=== PATIENT | female | born 1940 | race Caucasian/White ===

== ENCOUNTER 2018-07-09 11:42 | Emergency (ER) | payer OTHER ==
[~2018-07-09] VITALS: Ht 149.9 cm; Wt 72.6 kg
[~2018-07-09 11:42] MED LIST: Z FENOFIBRATE; Z.0.LISINOPRIL5 MG; Z.0.NEURONTIN300 MG; Z.0.ZOCOR40 MG; Z.1.FISH OIL 1,2001; Z.2.METFORMIN HCL500
--- OUTSIDE RECORDS SUMMARY | 2018-07-09 11:44 | XMS REPORT | Continuity of Care Document ---
Author Author [facility] Interface Address Unknown Phone Unavailable Problems Problem Status Onset Date Classification Date Reported Comments Source UNK Active 01/30/2017 [facility] J44.1 - CHRONIC OBSTRUCTIVE PULMONARY Active 03/14/2016 [facility] TIA Active 05/19/2015 [facility] STROKE Active 05/19/2015 [facility] COPD Resolved Problem 06/30/2018 [facility] Diabetes Resolved Problem 06/30/2018 [facility] DM (<span ID="[id number]">Confirmed</span>) Resolved Problem 06/30/2018 [facility] HTN (<span ID="[id number]">Confirmed</span>) Resolved Problem 06/30/2018 [facility] [place] (<span ID="[id number]">Confirmed</span>) Resolved Problem 06/30/2018 [facility] GASTRO-ESOPHAGEAL REFLUX DISEASE WITHOUT Active [facility] DYSPHAGIA, UNSPECIFIED Active [facility] Medications Medication Details Route Status Patient Instructions Ordering Provider Order Date Source Fenofibrate 200 MG Oral Capsule 145 mg, 1 tab, Route: PO, Drug form: TAB, Daily, Dosing Weight 75.455, kg, Start date: 05/21/15 9:00:00, Duration: 30 day, Stop date: 06/19/15 9:00:00Notes: (Same as: Tricor) No Longer Active 05/21/2015 [facility] Fish Oil 1,200 mg, Route: PO, Drug form: CAP, Daily, Dosing Weight 75.455, kg, Start date: 05/21/15 9:00:00, Duration: 30 day, Stop date: 06/19/15 9:00:00 No Longer Active 05/21/2015 [facility] Loratadine 10 mg, 1 tab, Route: PO, Drug form: TAB, Daily, Dosing Weight 75.455, kg, Start date: 05/21/15 9:00:00, Duration: 30 day, Stop date: 06/19/15 9:00:00Notes: 1 hr before meals (Same as: Claritin) No Longer Active 05/21/2015 [facility] Lisinopril 5 mg, 1 tab, Route: PO, Drug form: TAB, Daily, Dosing Weight 75.455, kg, Start date: 05/21/15 9:00:00, Duration: 30 day, Stop date: 06/19/15 9:00:00Notes: (Same as: Prinivil, Zestril) No Longer Active 05/21/2015 [facility] Mucinex 600 mg, 1 tab, Route: PO, Drug form: ERTAB, Daily, Dosing Weight 75.455, kg, Start date: 05/21/15 9:00:00, Duration: 30 day, Stop date: 06/19/15 9:00:00Notes: (Same as: Guaifenesin LA, Humibid LA, Mucinex) "Do Not Crush" Take medication with plenty of water. No Longer Active 05/21/2015 [facility] Thyroxine 75 microgram, 1 tab, Route: PO, Drug form: TAB, Q6AM, Dosing Weight 75.455, kg, Start date: 05/21/15 6:00:00, Duration: 30 day, Stop date: 06/19/15 6:00:00Notes: Take 1 hour before or 2 hours after meal; Enteral feeds may interefere with the absorption of this medication. (Same as:Synthroid, Levothroid) No Longer Active 05/21/2015 [facility] Simvastatin 40 mg, 1 tab, Route: PO, Drug form: TAB, Bedtime, Dosing Weight 75.455, kg, Start date: 05/20/15 21:00:00, Duration: 30 day, Stop date: 06/18/15 21:00:00Notes: (Same as: Zocor) Inactive 05/21/2015 [facility] Advair Diskus 250 mcg-50 mcg inhalation powder 1 puff, Route: INHALATION, Drug Form: AERO, Dosing Weight 75.455, kg, BID, Start date: 05/20/15 17:00:00, Duration: 30 day, Stop date: 06/19/15 9:00:00 Inactive 05/20/2015 [facility] calcium-vitamin D 500 mg-200 intl units oral tablet 1 tab, Route: PO, Drug Form: TAB, Dosing Weight 75.455, kg, BID, Start date: 05/20/15 17:00:00, Duration: 30 day, Stop date: 06/19/15 9:00:00Notes: (Same As: Simona-D, OsCal-D, Oyster Calcium) Inactive 05/20/2015 [facility] Metformin hydrochloride 500 MG Oral Tablet 500 mg, 1 tab, Route: PO, Drug form: TAB, BID-Meals, Dosing Weight 75.455, kg, Start date: 05/20/15 17:00:00, Duration: 30 day, Stop date: 06/19/15 8:00:00Notes: (Same as: Glucophage) Take with meal Inactive 05/20/2015 [facility] gabapentin 300 MG Oral Capsule 300 mg, 1 cap, Route: PO, Drug form: CAP, BID, Dosing Weight 75.455, kg, Start date: 05/20/15 17:00:00, Duration: 30 day, Stop date: 06/19/15 9:00:00Notes: (Same as: Neurontin) Inactive 05/20/2015 [facility] Protonix 40 mg, 1 tab, Route: PO, Drug form: ECTAB, Before Dinner, Dosing Weight 75.455, kg, Start date: 05/20/15 16:30:00, Duration: 30 day, Stop date: 06/18/15 16:30:00Notes: Tablet should not be chewed or crushed. (Same as: Protonix) Inactive 05/20/2015 [facility] ciprofloxacin 500 mg oral tablet 500 mg=1 tab, PO, Q12H, X 7 day, # 14 tab, 0 Refill(s) Active 05/20/2015 [facility] Aspirin 325 MG Enteric Coated Tablet 325 mg=1 tab, PO, Daily, # 30 tab, 0 Refill(s) Active 05/20/2015 [facility] Enoxaparin 40 mg, 0.4 mL, Route: SUB-Q, Drug form: INJ, [id number], Dosing Weight 75.455, kg, Start date: 05/20/15 10:00:00, Duration: 30 day, Stop date: 06/18/15 10:00:00Notes: (Same as: Lovenox) Inactive 05/20/2015 [facility] budesonide-formoterol 160 mcg-4.5 mcg/inh inhalation aerosol with adapter 2 inhalation, Route: INHALATION, Drug Form: AERO/A, RBID, Start date: 05/20/15 9:56:00, Duration: 30 day, Stop date: 06/19/15 8:00:00Notes: (Same as: Symbicort) WASTE: Aerosol - Return to Pharmacy Inactive 05/20/2015 [facility] tramadol hydrochloride 50 MG Oral Tablet 50 mg, 1 tab, Route: PO, Drug form: TAB, Q6H, Dosing Weight 75.455, kg, PRN Pain Score 4-6, Start date: 05/20/15 9:35:00, Duration: 30 day, Stop date: 06/19/15 9:34:00Notes: Not to exceed 400mg/day. (Same As: Ultram) Inactive 05/20/2015 [facility] Albuterol 0.833 MG/ML / Ipratropium [place] 0.167 MG/ML Inhalant Solution [DuoNeb] 3 mL, Route: INHALATION, Drug Form: SOLN, Dosing Weight 75.455, kg, TID, PRN as needed for shortness of breath or wheezing, Start date: 05/20/15 9:34:00, Duration: 30 day, Stop date: 06/19/15 9:33:00Notes: (Same as: Duoneb) Inactive 05/20/2015 [facility] 200 ACTUAT Albuterol 0.09 MG/ACTUAT / Ipratropium [place] 0.018 MG/ACTUAT Metered Dose Inhaler [Combivent] 1 puff, Route: INHALATION, Drug Form: AERO, Dosing Weight 75.455, kg, QID, PRN Shortness of breath, Start date: 05/20/15 9:34:00, Duration: 30 day, Stop date: 06/19/15 9:33:00Notes: Same as: Combivent Respimat WASTE: Aerosol - Return to Pharmacy Inactive 05/20/2015 [facility] Insulin, Aspart, Human 4 unit, 0.04 mL, Route: SUB-Q, Drug form: SOLN, Bedtime, Dosing Weight 75.455, kg, PRN Blood Glucose Results, Start date: 05/20/15 9:33:00, Duration: 30 day, Stop date: 06/19/15 9:32:00Notes: Roll in palms of hands gently; Do not shake vigorously. (Same as: NovoLOG) "single patient use only" WASTE: F/P - Black; E - Municipal Trash Bin Stable for 28 days at room temperature. Expires in days from Date Inactive 05/20/2015 [facility] Glucagon 1 mg, Route: IM, Drug form: PDR/INJ, PRN, Dosing Weight 75.455, kg, PRN Blood Glucose Results, Start date: 05/20/15 9:33:00, Duration: 30 day, Stop date: 06/19/15 9:32:00 Inactive 05/20/2015 [facility] Dextrose 50% Syringe 25 gm, 50 mL, Route: IVP, Drug Form: INJ, Dosing Weight 75.455, kg, PRN, PRN Blood Glucose Results, Start date: 05/20/15 9:33:00, Duration: 30 day, Stop date: 06/19/15 9:32:00 Inactive 05/20/2015 [facility] Docusate 100 mg, 1 cap, Route: PO, Drug form: CAP, BID, Dosing Weight 75.455, kg, PRN Constipation, Start date: 05/20/15 9:30:00, Duration: 30 day, Stop date: 06/19/15 9:29:00Notes: (Same as: Colace) (Do Not Crush) Inactive 05/20/2015 [facility] Ondansetron 4 mg, 2 mL, Route: IVP, Drug form: INJ, Q6H, Dosing Weight 75.455, kg, PRN Nausea & Vomiting, Start date: 05/20/15 9:30:00, Duration: 30 day, Stop date: 06/19/15 9:29:00Notes: (Same as: Zofran) MEDICATION WASTE Product Size: 4 mg Product Wasted: ___ mg Inactive 05/20/2015 [facility] Ceftriaxone 2 gm, Route: IVPB, [id number], Dosing Weight 75.455, kg, Priority: NOW, Start date: 05/20/15 9:29:00, Duration: 30 day, Stop date: 06/18/15 10:00:00Notes: (Same As: Rocephin). Use with 100 mL NS and infuse over 30 min MEDICATION WASTE Product Size: 2000 mg Product Wasted: ___ mg Inactive 05/20/2015 [facility] Aspirin 325 MG Enteric Coated Tablet 325 mg, 1 tab, Route: PO, Drug form: ECTAB, Daily, Dosing Weight 68.182, kg, Start date: 05/20/15 9:00:00, Duration: 30 day, Stop date: 06/18/15 9:00:00Notes: (Do Not Crush) Do not crush or chew. Inactive 05/20/2015 [facility] Atropine 0.5 mg, 5 mL, Route: IV, Drug form: INJ, ONCE, Dosing Weight 75.455, kg, PRN Bradycardia, Start date: 05/20/15 5:07:00, symptomatic bradycardia with heart rate Inactive 05/20/2015 [facility] Nitroglycerin 0.4 MG Sublingual Tablet 0.4 mg, 1 tab, Route: SL, Drug form: TAB, Q5Min, Dosing Weight 75.455, kg, PRN Chest Pain, Start date: 05/20/15 5:07:00, Duration: 30 day, Stop date: 06/19/15 5:06:00Notes: (Same as:Nitroquick, Nitrostat) "Do Not Crush" Sublingual tablet Inactive 05/20/2015 [facility] Saline Flush 0.9% 10 ml, Route: IVP, Drug Form: INJ, Dosing Weight 68.182, kg, Q12H, Start date: 05/19/15 21:00:00, Duration: 30 day, Stop date: 06/18/15 9:00:00Notes: (Same as: BD Posiflush) No Longer Active 05/20/2015 [facility] Famotidine 20 mg, 1 tab, Route: PO, Drug form: TAB, Q12H, Dosing Weight 68.182, kg, Start date: 05/19/15 21:00:00, Duration: 30 day, Stop date: 06/18/15 9:00:00Notes: (Same as: Pepcid) No Longer Active 05/20/2015 [facility] atorvastatin 80 mg, 2 tab, Route: PO, Drug form: TAB, Bedtime, Dosing Weight 68.182, kg, Start date: 05/19/15 21:00:00, Duration: 30 day, Stop date: 06/17/15 21:00:00Notes: (Same as: Lipitor) No Longer Active 05/20/2015 [facility] Calcium Carbonate 1500 MG / Cholecalciferol 800 UNT Oral Tablet 1 tab, PO, BID, 0 Refill(s) Active 05/19/2015 [facility] 12 HR Guaifenesin 600 MG Extended Release Tablet [Mucinex] 600 mg=1 tab, PO, Daily, 0 Refill(s) Active 05/19/2015 [facility] Loratadine 10 MG Oral Tablet [Alavert] 10 mg=1 tab, PO, Daily, 0 Refill(s) Active 05/19/2015 [facility] Albuterol 0.833 MG/ML / Ipratropium [place] 0.167 MG/ML Inhalant Solution [DuoNeb] 3 mL, INHALATION, TID, PRN as needed for shortness of breath or wheezing, 0 Refill(s) Active 05/19/2015 [facility] Fenofibrate 200 MG Oral Capsule 200 mg=1 cap, PO, Daily, 0 Refill(s) Active 05/19/2015 [facility] Saline Flush 0.9% 10 ml, Route: IVP, Drug Form: INJ, Dosing Weight 68.182, kg, PRN, PRN Line Flush, Start date: 05/19/15 17:27:00, Duration: 30 day, Stop date: 06/18/15 17:26:00 Inactive 05/19/2015 [facility] Acetaminophen 650 mg, 2 tab, Route: PO, Drug form: TAB, Q4H, Dosing Weight 68.182, kg, PRN Pain 1-3/Temp > 99.5 F, Start date: 05/19/15 17:27:00, Duration: 30 day, Stop date: 06/18/15 17:26:00Notes: Do not exceed 4 gm/day. (Same as: Tylenol) No Longer Active 05/19/2015 [facility] Aspirin 324 mg, 4 tab, Route: CHEW, Drug form: CHEWTAB, ONCE, Dosing Weight 68.182, kg, Priority: STAT, Start date: 05/19/15 15:14:00, Stop date: 05/19/15 15:14:00Notes: Take with food. Inactive 05/19/2015 [facility] Saline Flush 0.9% 10 mL, Route: IVP, Drug Form: INJ, Dosing Weight 68.182, kg, PRN, PRN Line Flush, Start date: 05/19/15 14:35:00, Duration: 30 day, Stop date: 06/18/15 14:34:00Notes: (Same as: BD Posiflush) No Longer Active 05/19/2015 [facility] Allergies, Adverse Reactions, Alerts Substance Category Reaction Severity Reaction type Status Date Reported Comments Source Immunizations Immunization Date Given Site Status Last Updated Comments Source Results Order Name Results Value Reference Range Date Interpretation Comments Source Bladder US Bladder US EXAM: US BLADDER DATE: 07/08/2018 8:50 CDT INDICATION: - N32.89 Other specified disorders of bladder. Distended bladder. Incomplete emptying of the bladder and bladder pain for a few days. COMPARISON: CT dated 06/27/2018 TECHNIQUE: Multiplanar grayscale and color Doppler ultrasound of the bladder. FINDINGS: The bladder is distended with mildly thickened wall. There is a small right posterolateral bladder diverticulum measuring approximately 2 cm in diameter. Bilateral ureteral jets are seen. Prevoid bladder volume is 874 mL. Postvoid residual volume is 509 mL. IMPRESSION: 1. Small right posterolateral bladder diverticulum. 2. Large post void residual. 07/08/2018 - - Read by: Carola Souza MD Dictated Date/time: 07/08/18 12:58 Electronically Signed by: Carola Souza MD 07/08/18 13:04 FINAL REPORT [facility] Abdomen/Pelvis w IV contrast CT Abdomen/Pelvis w IV contrast CT EXAM: CT ABDOMEN AND PELVIS WITH CONTRAST DATE: 06/27/2018 15:04 CDT INDICATION: - R10.9 Unspecified abdominal pain. Right groin pain and left- sided abdominal pain for the past 2 months. I insufficiency and anemia. ADDITIONAL INFORMATION: History of cholecystectomy. COMPARISON: None. TECHNIQUE: Volumetric CT acquisition of the abdomen and pelvis after intravenous contrast. Axial, coronal and sagittal reconstructions. Postcontrast phases: Venous and delayed. IV contrast: 100 cc Visipaque 320 Oral contrast: Oral Omnipaque 300 and water mixture. DLP: 1545 mGy-cm FINDINGS: Lines and tubes: None. Lower thorax: Lung bases are clear. Atherosclerotic calcifications are seen in the coronary arterial system. No pleural or pericardial effusions are seen. Liver: The liver is of normal size and density. There is very mild nodularity of the liver surfaces. No focal liver abnormalities are seen. Biliary tree: The common bile duct is dilated up to 15 mm with no distinct constricting or obstructing lesions. No pancreatic ductal dilatation is seen. There is a mild degree of central intrahepatic biliary ductal dilatation. Gallbladder: Surgically absent Pancreas: Normal. Spleen: Normal. Adrenals: Normal. Kidneys and ureters: Simple fluid attenuation cysts are seen within the right kidney with the largest measuring 2.5 cm in maximal diameter. Other hypodensities which are subcentimeter in size and which are too small to characterize are seen within the right renal cortex. There areas of renal cortical thinning present with mild lobulation of the right renal cortex. Within the left kidney, multiple subcentimeter hypodensities are present which are too small to characterize. There is a mild degree of lateral cortical thinning present. There is some mild lobulation of this kidneys cortex as well. The kidneys otherwise enhance symmetrically and normally with prompt excretion of contrast material. No hydronephrosis, masses, or calculi are seen. The ureters are of normal course and caliber with no constricting or obstructing lesions. Bladder: The bladder is significantly distended on this exam. A 1.4 cm right posterior lateral bladder wall diverticulum is seen on image 115 of series 5 with no associated wall thickening or calculi. No constricting or obstructing bladder outlet lesions are noted. No wall thickening, masses, or calculi are seen. Reproductive organs: No abnormalities of the uterus, ovaries, cervix, and vagina are seen. Gastrointestinal tract: There is mild concentric thickening of the distal esophageal liu with no surrounding inflammatory changes. The stomach is normal in appearance. Colonic diverticulosis, especially of the sigmoid colon, is present with no CT evidence of acute diverticulitis. The small intestine and colon are of normal course and caliber with no constricting or obstructing lesions, masses, or surrounding inflammatory changes. No rectal or anal abnormalities are seen. Appendix: Not visualized. No pericecal inflammatory changes or fluid collections are seen. Peritoneum and retroperitoneum: No lymphadenopathy, ascites or free air. Lymph nodes: No abdominal or pelvic lymphadenopathy is seen. Vasculature: There is mild ectasia and aneurysmal dilatation of the infrarenal abdominal aorta measuring up to 2.8 x 3.2 cm on image 53 of series 2. Mixed calcified and noncalcified plaque formation are seen within the abdominal aorta and iliac arterial systems. No dissections are seen. Moderate atherosclerotic calcifications are seen at the left renal arterial origin. Mild atherosclerotic calcifications are seen in the right renal origin. Mild atherosclerotic calcifications are seen at the origins of the celiac axis and superior mesenteric artery as well The inferior vena cave is normal in appearance. The portal venous system is patent with dilatation of the main portal vein at the 17 mm. Multiple varices are seen in the gastrohepatic ligament and adjacent to the gastroesophageal junction within the peritoneal cavity. No varices are seen superior to the diaphragm. Bones: Multilevel spondylosis and severe disc space narrowing are seen in the lumbar spine especially at L1-L2 through L3-L4. Advanced facet joint osteoarthritic changes are present at L5-S1 with milder changes at other levels in the lumbar spine. No osseous destructive lesions are seen.. Soft tissues/abdominal wall: Small bilateral fat-containing indirect inguinal hernias are present with no surrounding or internal inflammatory changes. IMPRESSION: 1. Very mild surface nodularity of the liver along with varices within the gastroesophageal ligament/gastroesophageal junction and along with dilatation of the main portal vein most likely represent underlying cirrhosis with portal hypertension. No splenomegaly or ascites is seen. If bleeding varices are suspected clinically, endoscopy would be recommended for further evaluation. 2. The bladder is moderately distended on this exam. No discrete bladder outlet abnormalities are seen by CT. Clinical correlation is recommended to ensure the patient can adequately void. Otherwise, catheterization may be necessary. 3. Small posterior right bladder diverticulum. 4. Diffuse ectasia of the abdominal aorta with mild aneurysmal dilatation up to 3.2 cm of the infrarenal abdominal aorta. Moderate atherosclerosis is seen throughout the abdomen, as described above, including of the coronary arteries. 5. Small bilateral fat-containing inguinal hernias with no surrounding or internal inflammatory changes. 6. Mild diffuse thickening of the distal esophageal liu, possibly from esophagitis. Other infiltrating pathology is less likely. No discrete mass is seen. Upper GI series or endoscopy may be performed for further evaluation. 7. Status post cholecystectomy. Dilatation of the central intrahepatic ducts and of the common bile duct is likely from normal reservoir effect status post cholecystectomy. If there is laboratory evidence of biliary ductal obstruction, MRCP and MRI of the abdomen with and without contrast would be recommended. 8. Multiple bilateral renal cysts. Mild areas of bilateral renal cortical thinning/scarring are seen. There is lobulation of both renal cortices. Other small hypodensities in both kidneys are too small to characterize and likely represent small cysts. 9. Colonic diverticulosis with no CT evidence of acute diverticulitis. 06/27/2018 - - Read by: Tushar Cruz MD Dictated Date/time: 06/27/18 16:13 Electronically Signed by: Tushar Cruz MD 06/27/18 16:41 FINAL REPORT [facility] Hip 2/3 views uni w pelvis DX Hip 2/3 views uni w pelvis DX EXAM: XR LEFT HIP 3 VIEWS DATE: 04/18/2017 at 1531 hours. INDICATION: W19.XXXA Unspecified fall, initial encounter. COMPARISON: None. TECHNIQUE: 3 views of the hip including the pelvis. FINDINGS: There is decreased mineralization of the visible bones. No acute fracture or malalignment is identified. Mild degenerative changes of the lower lumbar spine are partially imaged. Hip joint spaces are preserved. No acute soft tissue abnormality is identified. There are mild vascular calcifications about the medial, proximal thighs. IMPRESSION: 1. No acute abnormality of the left hip. 2. Osteopenia. 04/18/2017 - - Read by: Dylon Rosado MD Dictated Date/time: 04/18/17 16:14 Electronically Signed by: Dylon Rosado MD 04/18/17 16:17 FINAL REPORT [facility] Barium Swallow w Esophagus Function DX Barium Swallow w Esophagus Function DX Barium Swallow w Esophagus Function DX COMPARISON: None CLINICAL HISTORY: fl time 3.2 min, dose 113.24 mGy, dap 31.148 Gycm2 , Dr. 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 TECHNIQUE: Thin barium was utilized for recumbent prone oblique and LPO images. Thick barium was utilized for upright imaging of the esophagus and pharynx. Granola bar mixed with barium was given to evaluate motility with solids. FINDINGS: There is no delay in passage of the barium bolus from the pharynx into the esophagus. There is mild narrowing at the cricopharyngeus. No significant delay in passage of the bolus from the oropharynx past the cricopharyngeus and into the esophagus is however noted. There is no evidence for Zenker's diverticulum. Prone and LPO images of the esophagus reveal moderate delay in passage of barium from the esophagus to the stomach. The esophagus at times has a corkscrew appearance. Patient reports chest discomfort but no definite evidence for chest pain. Upright images with thick barium mild to moderate delay in passage of barium from the esophagus to the stomach. No mass lesions or strictures are visualized. Subsequently 2 separate swallows of a small piece of granola bar and barium were fluoroscopically followed through the length of the esophagus. There is delay in passage of both solid boluses from the esophagus to the stomach. Overhead image performed at the conclusion of the procedure reveals prompt passage of the barium from the stomach into the small bowel. IMPRESSION: Findings suggestive of diffuse esophageal spasm. Correlation with manometry study is recommended. Mild narrowing is noted at the cricopharyngeus without significant delay in passage of liquid barium or solids. 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 This may be secondary to overlying chest wall soft tissue opacities. Changes in the left lung base are unchanged as compared to 05/19/2015. Heart is upper limits of normal. Tortuous thoracic aorta. Soft tissue opacity in the retrocardiac region on lateral view may represent a small hiatal hernia. Mildly exaggerated dorsal spine kyphosis is present. IMPRESSION: Hazy opacities in the lung bases on PA view, no definite abnormalities on lateral view. 03/14/2016 - - Read by: Marcela Kemp MD Dictated Date/time: 03/14/16 16:31 Electronically Signed by: Marcela Kemp 03/14/16 16:36 FINAL REPORT [facility] CHEM PANEL A/G Ratio 1.1 0.7 - 1.6 05/20/2015 [facility] CHEM PANEL Globulin 2.9 g/dL 2.0 - 4.0 05/20/2015 [facility] CHEM PANEL B/C Ratio 21 6 - 25 05/20/2015 [facility] CHEM PANEL AGAP 10.1 meq/L 10.0 - 20.0 05/20/2015 [facility] CHEM PANEL eGFR 50 mL/min/1.73m2 05/20/2015 Result Comment: The eGFR is calculated using the CKD-EPI formula. In most young, healthy individuals the eGFR will be >90 mL/min/1.73m2. The eGFR declines with age. An eGFR of 60-89 may be normal in some populations, particularly the elderly, for whom the CKD-EPI formula has not been extensively validated. Use of the eGFR is not recommended in the following populations: Individuals with unstable creatinine concentrations, including patients and those with serious co-morbid conditions. Patients with extremes in muscle mass or diet. The data above are obtained from the National Kidney Disease Education Program (NKDEP) which additionally recommends that when the eGFR is used in patients with extremes of body mass index for purposes of drug dosing, the eGFR should be multiplied by the estimated BMI. [facility] CHEM PANEL Potassium Lvl 4.1 meq/L 3.5 - 5.1 05/20/2015 [facility] [facility] CHEM PANEL Chloride Lvl 107 meq/L 95 - 109 05/20/2015 [facility] CHEM PANEL Calcium Lvl 9.1 mg/dL 8.5 - 10.5 05/20/2015 [facility] CHEM PANEL CO2 29 meq/L 24 - 32 05/20/2015 [facility] CHEM PANEL Sodium Lvl 142 meq/L 135 - 145 05/20/2015 [facility] CHEM PANEL BUN 22 mg/dL 7 - 22 05/20/2015 [facility] CHEM PANEL Glucose Lvl 115 mg/dL 70 - 99 05/20/2015 [facility] CHEM PANEL Creatinine Lvl 1.07 mg/dL 0.50 - 1.40 05/20/2015 [facility] CHEM PANEL Bili Total 0.4 mg/dL 0.2 - 1.3 05/20/2015 [facility] CHEM PANEL ALT 21 unit/L 0 - 65 05/20/2015 [facility] CHEM PANEL Alk Phos 50 unit/L 39 - 136 05/20/2015 [facility] CHEM PANEL AST 19 unit/L 0 - 37 05/20/2015 [facility] CHEM PANEL Total Protein 6.0 g/dL 6.4 - 8.4 05/20/2015 [facility] CHEM PANEL Albumin Lvl 3.1 g/dL 3.5 - 5.0 05/20/2015 [facility] HEMATOLOGY Basophils # 0.1 K/CMM 0.0 - 0.2 05/20/2015 [facility] HEMATOLOGY Eosinophils # 0.1 K/CMM 0.0 - 0.5 05/20/2015 [facility] HEMATOLOGY Monocytes # 0.4 K/CMM 0.0 - 0.8 05/20/2015 [facility] HEMATOLOGY Lymphocytes # 1.1 K/CMM 1.0 - 5.5 05/20/2015 [facility] HEMATOLOGY Eosinophils 2.4 % 0.0 - 4.0 05/20/2015 [facility] HEMATOLOGY Basophils 1.1 % 0.0 - 1.0 05/20/2015 [facility] HEMATOLOGY Segs-Bands # 3.7 K/CMM 1.5 - 8.1 05/20/2015 [facility] Lymphocytes 19.8 % 20.0 - 40.0 05/20/2015 [facility] Monocytes 7.5 % 2.0 - 12.0 05/20/2015 [facility] Segs 69.2 % 45.0 - 75.0 05/20/2015 [facility] MPV 9.6 fL 7.4 - 10.4 05/20/2015 [facility] Platelet 205 K/CMM 133 - 450 05/20/2015 [facility] MCH 27.9 pg 27.0 - 31.0 05/20/2015 [facility] MCHC 31.9 g/dL 32.0 - 36.0 05/20/2015 [facility] RDW 15.1 % 11.5 - 14.5 05/20/2015 [facility] RBC 4.37 M/CMM 4.20 - 5.40 05/20/2015 [facility] HEMATOLOGY Hgb 12.2 g/dL 12.0 - 16.0 05/20/2015 [facility] WBC 5.4 K/CMM 3.7 - 10.4 05/20/2015 [facility] HEMATOLOGY Hct 38.1 % 36.0 - 48.0 05/20/2015 [facility] HEMATOLOGY MCV 87.3 fL 80.0 - 98.0 05/20/2015 [facility] LIPIDS LDL (Calculated) 69 mg/dL <=99 mg/dL 05/20/2015 [facility] LIPIDS CHD Risk 4.48 3.90 - 5.80 05/20/2015 [facility] LIPIDS Trig 162 mg/dL <=149 mg/dL 05/20/2015 [facility] LIPIDS Chol 130 mg/dL <=199 mg/dL 05/20/2015 [facility] LIPIDS HDL 29 mg/dL >=61 mg/dL 05/20/2015 [facility] LIPIDS VLDL 32 05/20/2015 [facility] Brain wo contrast MRI Brain wo contrast MRI PROCEDURE: Brain wo contrast MRI REASON FOR EXAM: acute headache and dizziness, facial numbness CLINICAL INFORMATION Facial numbness COMPARISON: None. FINDINGS: There is no acute or subacute infarction. There is diffuse volume loss with corresponding prominence of the ventricles and sulci. There are microangiopathic changes of the white matter. The temporal lobes are symmetric in size and signal characteristics. The sella and foramen magnum regions are normal. No hemorrhage, mass or midline shift is noted. IMPRESSION: 1. Chronic changes as described above, no acute intracranial process. SL: 13 05/19/2015 - - Read by: Harry Gottlieb MD Dictated Date/time: 05/20/15 07:23 Electronically Signed by: Harry Gottlieb MD 05/20/15 07:27 FINAL REPORT [facility] URINE AND STOOL UA Urobilinogen <=1.0 mg/dL 0.1 - 1.0 05/19/2015 [facility] URINE AND STOOL UA Sq Epi Few /LPF Few /LPF 05/19/2015 [facility] URINE AND STOOL UA Bacteria Moderate /HPF None Seen /HPF 05/19/2015 [facility] URINE AND STOOL UA RBC 2 /HPF 0 - 2 05/19/2015 [facility] URINE AND STOOL UA WBC 97 /HPF 0 - 5 05/19/2015 [facility] URINE AND STOOL UA Nitrite Positive *ABN* (05/19/15 5:34 PM) Negative 05/19/2015 [facility] URINE AND STOOL UA Leuk Est Large *ABN* (05/19/15 5:34 PM) Negative 05/19/2015 [facility] URINE AND STOOL UA Turbidity Marked *ABN* (05/19/15 5:34 PM) Clear 05/19/2015 [facility] URINE AND STOOL UA Spec Grav 1.014 <=1.030 05/19/2015 [facility] URINE AND STOOL UA Color Yellow *NA* (05/19/15 5:34 PM) Yellow 05/19/2015 [facility] URINE AND STOOL UA Blood Small *ABN* (05/19/15 5:34 PM) Negative 05/19/2015 [facility] URINE AND STOOL UA Bili Negative *NA* (05/19/15 5:34 PM) Negative 05/19/2015 [facility] URINE AND STOOL UA Glucose Negative mg/dL Negative mg/dL 05/19/2015 [facility] URINE AND STOOL UA Ketones Negative mg/dL Negative mg/dL 05/19/2015 [facility] URINE AND STOOL UA pH 5.0 5.0 - 8.0 05/19/2015 [facility] URINE AND STOOL UA Protein Negative mg/dL Negative mg/dL 05/19/2015 [facility] CARDIAC ENZYMES Total CK 62 unit/L 12 - 191 05/19/2015 [facility] CARDIAC ENZYMES CK MB 1.3 ng/mL 0.5 - 3.6 05/19/2015 [facility] CARDIAC ENZYMES Troponin-I null 0.00 - 0.40 05/19/2015 [facility] CARDIAC ENZYMES CK MB Index 2.1 0.0 - 2.5 05/19/2015 [facility] CHEM PANEL Phosphorus 2.6 mg/dL 2.5 - 4.5 05/19/2015 [facility] CHEM PANEL Magnesium Lvl 1.8 mg/dL 1.8 - 2.4 05/19/2015 [facility] CHEM PANEL eGFR 38 mL/min/1.73m2 05/19/2015 Result Comment: The eGFR is calculated using the CKD-EPI formula. In most young, healthy individuals the eGFR will be >90 mL/min/1.73m2. The eGFR declines with age. An eGFR of 60-89 may be normal in some populations, particularly the elderly, for whom the CKD-EPI formula has not been extensively validated. Use of the eGFR is not recommended in the following populations: Individuals with unstable creatinine concentrations, including patients and those with serious co-morbid conditions. Patients with extremes in muscle mass or diet. The data above are obtained from the National Kidney Disease Education Program (NKDEP) which additionally recommends that when the eGFR is used in patients with extremes of body mass index for purposes of drug dosing, the eGFR should be multiplied by the estimated BMI. [facility] CHEM PANEL Sodium Lvl 141 meq/L 135 - 145 05/19/2015 [facility] CHEM PANEL Chloride Lvl 108 meq/L 95 - 109 05/19/2015 [facility] CHEM PANEL Potassium Lvl 4.7 meq/L 3.5 - 5.1 05/19/2015 [facility] CHEM PANEL Calcium Lvl 9.5 mg/dL 8.5 - 10.5 05/19/2015 [facility] CHEM PANEL ALT 21 unit/L 0 - 65 05/19/2015 [facility] CHEM PANEL Total Protein 6.6 g/dL 6.4 - 8.4 05/19/2015 [facility] CHEM PANEL Albumin Lvl 3.2 g/dL 3.5 - 5.0 05/19/2015 [facility] CHEM PANEL CO2 25 meq/L 24 - 32 05/19/2015 [facility] CHEM PANEL AST 30 unit/L 0 - 37 05/19/2015 [facility] CHEM PANEL Bili Total 0.6 mg/dL 0.2 - 1.3 05/19/2015 [facility] CHEM PANEL Alk Phos 54 unit/L 39 - 136 05/19/2015 [facility] CHEM PANEL AGAP 12.7 meq/L 10.0 - 20.0 05/19/2015 [facility] CHEM PANEL Globulin 3.4 g/dL 2.0 - 4.0 05/19/2015 [facility] CHEM PANEL A/G Ratio 0.9 0.7 - 1.6 05/19/2015 [facility] CHEM PANEL B/C Ratio 15 6 - 25 05/19/2015 [facility] CHEM PANEL BUN 20 mg/dL 7 - 22 05/19/2015 [facility] CHEM PANEL Creatinine Lvl 1.35 mg/dL 0.50 - 1.40 05/19/2015 [facility] CHEM PANEL Glucose Lvl 128 mg/dL 70 - 99 05/19/2015 [facility] HEMATOLOGY Hgb 12.6 g/dL 12.0 - 16.0 05/19/2015 [facility] HEMATOLOGY Hct 39.7 % 36.0 - 48.0 05/19/2015 [facility] HEMATOLOGY WBC 5.9 K/CMM 3.7 - 10.4 05/19/2015 [facility] HEMATOLOGY RBC 4.54 M/CMM 4.20 - 5.40 05/19/2015 [facility] HEMATOLOGY Platelet 211 K/CMM 133 - 450 05/19/2015 [facility] HEMATOLOGY MCV 87.3 fL 80.0 - 98.0 05/19/2015 [facility] HEMATOLOGY MCH 27.7 pg 27.0 - 31.0 05/19/2015 [facility] MCHC 31.7 g/dL 32.0 - 36.0 05/19/2015 [facility] RDW 15.7 % 11.5 - 14.5 05/19/2015 [facility] MPV 10.0 fL 7.4 - 10.4 05/19/2015 [facility] Monocytes 7.0 % 2.0 - 12.0 05/19/2015 [facility] Lymphocytes 14.9 % 20.0 - 40.0 05/19/2015 [facility] Segs 76.5 % 45.0 - 75.0 05/19/2015 [facility] Monocytes # 0.4 K/CMM 0.0 - 0.8 05/19/2015 [facility] Lymphocytes # 0.9 K/CMM 1.0 - 5.5 05/19/2015 [facility] Eosinophils 0.8 % 0.0 - 4.0 05/19/2015 [facility] Segs-Bands # 4.5 K/CMM 1.5 - 8.1 05/19/2015 [facility] Basophils 0.8 % 0.0 - 1.0 05/19/2015 [facility] Carotid artery Doppler bilat US Carotid artery Doppler bilat US PROCEDURE: Carotid artery Doppler US REASON FOR EXAM: Dizziness, lightheadedness COMPARISON: None. TECHNIQUE: Dalton-scale, color Doppler and spectral Doppler of the carotid arteries was performed. Any reported ICA stenoses indirectly reference the distal internal carotid diameter as the denominator for the stenosis measurement, utilizing consensus panel criteria. FINDINGS: RIGHT: No significant plaque formation. ICA PSV 69 cm/sec CCA PSV 63 cm/sec ICA/CCA ratio 1.09 Vertebral flow is antegrade. External carotid artery is patent. LEFT: No significant plaque formation. ICA PSV 136 cm/sec CCA PSV 74 cm/sec ICA/CCA ratio 1.84 Vertebral flow is antegrade. External carotid artery is patent. IMPRESSION: 1. RIGHT: ICA stenosis less than 50% by velocity criteria. 1. LEFT: ICA stenosis 50-69% by velocity criteria. Consensus panel Doppler US criteria for diagnosis of ICA stenosis: Stenosis (%) ICA PSV (cm/sec) ICA/CCA ratio <50 <125 <2.0 50-69 125-230 2.0-4.0 >70 but less than >230 >4.0 near occlusion Near occlusion High, low, or Variable undetectable SL: 05/19/2015 - - Read by: Harry Gottlieb MD Dictated Date/time: 05/20/15 07:27 Electronically Signed by: Harry Gottlieb MD 05/20/15 07:30 FINAL REPORT [facility] Chest 1view DX Chest 1view DX PROCEDURE: Chest 1view REASON FOR EXAM: See Clinic Indication CLINICAL INFORMATION Chest pain COMPARISON: None. Left lower lobe atelectasis and small effusion. Enlarged cardiac silhouette. Small hiatal hernia suspected. No pneumothorax. Normal pulmonary vasculature. SL: 05/19/2015 - - Read by: Harry Gottlieb MD Dictated Date/time: 05/19/15 15:33 Electronically Signed by: Harry Gottlieb MD 05/19/15 15:34 FINAL REPORT [facility] Brain Stroke wo contrast CT Brain Stroke wo contrast CT CT BRAIN WITHOUT CONTRAST: HISTORY: Confusion. TECHNIQUE: Axial images were done without contrast. FINDINGS: Multiple small patchy low-density areas and lacunae are seen in the basal ganglia white matter of both cerebral hemispheres. There is no other acute parenchymal abnormality, hemorrhage,infarct, mass, or shift. The ventricles and extra-axial spaces are within normal limits. There is no significant osseous abnormality. IMPRESSION: Small vessel ischemic changes without other acute CT abnormalities of the brain. SL:05/19/2015 - - Read by: Tony Ballard MD Dictated Date/time: 05/19/15 14:41 Electronically Signed by: Tony Ballard MD 05/19/15 14:43 FINAL REPORT [facility] Vital Signs Vital Sign Value Date Comments Source Respitory Rate 18 05/20/2015 [facility] Systolic (mm Hg) 115 05/20/2015 [facility] Diastolic (mm Hg) 66 05/20/2015 [facility] Heart Rate 66 05/20/2015 [facility] Respitory Rate 18 05/20/2015 [facility] Temperature Oral (F) 97.4 F 05/20/2015 [facility] Respitory Rate 16 05/20/2015 [facility] Temperature Oral (F) 98.3 F 05/20/2015 [facility] Systolic (mm Hg) 145 05/20/2015 [facility] Diastolic (mm Hg) 84 05/20/2015 [facility] Heart Rate 70 05/20/2015 [facility] Heart Rate 78 05/20/2015 [facility] Systolic (mm Hg) 117 05/20/2015 [facility] Diastolic (mm Hg) 78 05/20/2015 [facility] Temperature Oral (F) 97.6 F 05/20/2015 [facility] Height 149.86 cm 05/20/2015 [facility] BMI Calculated 33.6 05/20/2015 [facility] Weight 75.455 05/20/2015 [facility] Encounters Location Location Details Encounter Type Encounter Number Reason For Visit Attending Provider ADM Date DC Date Status Source [facility] OBS Observation Patient [id number] Stanjames Tatum 05/19/2015 05/20/2015 [facility] [place] [facility] [id number] Horace Odell 03/14/2016 03/15/2016 [facility] Outpatient [id number] Prasad Rodriguez 02/01/2017 02/02/2017 [facility] [place] [facility] [id number] Horace Odell 04/18/2017 04/19/2017 [facility] [place] [facility] [id number] Horace Odell 06/27/2018 06/28/2018 [facility] Procedures Procedure Code Date Perfomer Comments Source Cataract surgery [id number] [facility] Cholecystectomy [id number] [facility] Eye operation [id number] [facility] Tubal ligation [id number] [facility] Cataract surgery [id number] [facility] Cholecystectomy [id number] [facility] Eye operation [id number] [facility] Tubal ligation [id number] [facility]
--- OUTSIDE RECORDS SUMMARY | 2018-07-09 11:44 | XMS REPORT | Summary of Care ---
Author Author [facility] Organization [facility] Address Unknown Phone Unavailable Encounter HQ Miracle(FIN) [id number] Date(s): 02/01/17 - 02/01/17 [facility] [address] [place] [address]- Discharge Disposition: Home or Self Care Attending Physician: Prasad Rodriguez MD Referring Physician: Prasad Rodriguez MD Vital Signs No data available for this section Problem List Condition Effective Dates Status Health Status Informant COPD(Confirmed) Resolved Diabetes(Confirmed) Resolved DM (diabetes Resolved mellitus)(Confirmed) HTN Resolved (hypertension)(Confi rmed) MD (myocardial Resolved infarction)(Confirme d) Allergies, Adverse Reactions, Alerts Substance Reaction Severity Status NKDA Active Medications No data available for this section Results No data available for this section Immunizations No data available for this section Procedures Procedure Date Related Diagnosis Body Site Cataract surgery Cholecystectomy Eye operation Tubal ligation Social History Social History Type Response Smoking Status Former smoker; Started at age: 16.0; Stopped at age: 67; Exposure to Tobacco Smoke None; Cigarette Smoking Last 365 Days No; Reg Smoking Cessation Counseling Yes Assessment and Plan No data available for this section
--- OUTSIDE RECORDS SUMMARY | 2018-07-09 11:44 | XMS REPORT | Summary of Care ---
Author Author [facility] Outpatient Imaging [facility] Outpatient Imaging [facility] Address Unknown Phone Unavailable Encounter JOHN Rausch(TIFFANIE) [id number] Date(s): 04/18/17 - 04/18/17 [facility] Outpatient Imaging [facility] [address] [facility], [address] [place] [phone] Discharge Disposition: Home or Self Care Attending Physician: Horace Odell MD Vital Signs No data available for this section Problem List Condition Effective Dates Status Health Status Informant COPD(Confirmed) Resolved Diabetes(Confirmed) Resolved DM (diabetes Resolved mellitus)(Confirmed) HTN Resolved (hypertension)(Confi rmed) WI (myocardial Resolved infarction)(Confirme d) Allergies, Adverse Reactions, Alerts Substance Reaction Severity Status NKDA Active Medications No data available for this section Results No data available for this section Immunizations No data available for this section Procedures Procedure Date Related Diagnosis Body Site Cataract surgery Cholecystectomy Eye operation Tubal ligation Social History Social History Type Response Smoking Status Former smoker; Exposure to Tobacco Smoke None; Cigarette Smoking Last 365 Days No; Reg Smoking Cessation Counseling Yes; Started at age: 16.0; Stopped at age: 67; Assessment and Plan No data available for this section
--- OUTSIDE RECORDS SUMMARY | 2018-07-09 11:45 | XMS REPORT | Summary of Care ---
Author Author [facility] Outpatient Imaging [facility] Outpatient Imaging [facility] Address Unknown Phone Unavailable Encounter HQ Carol_miles(FIN) [id number] Date(s): 03/14/16 - 03/14/16 [facility] Outpatient Imaging [facility] [address] [facility], [address] [place] [phone] Discharge Disposition: Home or Self Care Attending Physician: Horace Odell MD Vital Signs No data available for this section Problem List Condition Effective Dates Status Health Status Informant COPD(Confirmed) Resolved Diabetes(Confirmed) Resolved DM (diabetes Resolved mellitus)(Confirmed) HTN Resolved (hypertension)(Confi rmed) PR (myocardial Resolved infarction)(Confirme d) Allergies, Adverse Reactions, [...]
--- OUTSIDE RECORDS SUMMARY | 2018-07-09 11:45 | XMS REPORT | Summary of Care ---
Author Author [facility] Organization [facility] Address Unknown Phone Unavailable Encounter JOHN Rausch(TIFFANIE) [id number] Date(s): 05/19/15 - 05/20/15 [facility] [address] [place] [address]- [phone] Discharge Disposition: Home Attending Physician: Stan Tatum MD Admitting Physician: Stan Tatum MD Vital Signs 1 2 3 Most recent to oldest [Reference Range]: 149.86 cm (05/19/15 6:18 PM) Height 97.4 DegF (05/20/15 7:09 AM) 98.3 DegF (05/20/15 4:18 AM) 97.6 DegF (05/19/15 11:08 PM) Temperature Oral [96.4-99.1 DegF] 115/66 mmHg (05/20/15 7:09 AM) 145/84 mmHg *HI* (05/20/15 4:18 AM) 117/78 mmHg (05/19/15 11:08 PM) Blood Pressure [90-140/60-90 mmHg] 18 BRMIN (05/20/15 10:50 AM) 18 BRMIN (05/20/15 7:09 AM) 16 BRMIN (05/20/15 6:22 AM) Respiratory Rate [14-20 BRMIN] 66 bpm (05/20/15 7:09 AM) 70 bpm (05/20/15 4:18 AM) 78 bpm (05/19/15 11:08 PM) Peripheral Pulse Rate [60-100 bpm] 75.455 kg (05/19/15 6:18 PM) Weight 33.6 m2 (05/19/15 6:18 PM) Body Mass Index Problem List Condition Effective Dates Status Health Status Informant COPD(Confirmed) Resolved Diabetes(Confirmed) Resolved DM (diabetes Resolved mellitus)(Confirmed) HTN Resolved (hypertension)(Confi rmed) NV (myocardial Resolved infarction)(Confirme d) Allergies, Adverse Reactions, Alerts Substance Reaction Severity Status NKDA Active Medications acetaminophen 650 mg, 2 tab, Route: PO, Drug form: TAB, Q4H, Dosing Weight 68.182, kg, PRN Jaguar n 1-3/Temp > 99.5 F, Start date: 05/19/15 17:27:00, Duration: 30 day, Stop date: 06/18/15 17:26:00 Notes: Do not exceed 4 gm/day. (Same as: Tylenol) Start Date: 05/19/15 Stop Date: 05/20/15 Status: Discontinued Advair Diskus 250 mcg-50 mcg inhalation powder 1 puff, Route: INHALATION, Drug Form: AERO, Dosing Weight 75.455, kg, BID, Start date: 05/20/15 17:00:00, Duration: 30 day, Stop date: 06/19/15 9:00:00 Start Date: 05/20/15 Stop Date: 05/20/15 Status: Deleted Alavert 10 mg oral tablet 10 mg=1 tab, PO, Daily, 0 Refill(s) Start Date: 05/19/15 Status: Ordered aspirin 324 mg, 4 tab, Route: CHEW, Drug form: CHEWTAB, ONCE, Dosing Weight 68.182, kg, Priority: STAT, Start date: 05/19/15 15:14:00, Stop date: 05/19/15 15:14:00 Notes: Take with food. Start Date: 05/19/15 Stop Date: 05/19/15 Status: Completed aspirin 325 mg tablet, enteric coated 325 mg, 1 tab, Route: PO, Drug form: ECTAB, Daily, Dosing Weight 68.182, kg, Sta rt date: 05/20/15 9:00:00, Duration: 30 day, Stop date: 06/18/15 9:00:00 Notes: (Do Not Crush) Do not crush or chew. Start Date: 05/20/15 Stop Date: 05/20/15 Status: Discontinued aspirin 325 mg tablet, enteric coated 325 mg=1 tab, PO, Daily, # 30 tab, 0 Refill(s) Start Date: 05/20/15 Status: Ordered atorvastatin 80 mg, 2 tab, Route: PO, Drug form: TAB, Bedtime, Dosing Weight 68.182, kg, Star t date: 05/19/15 21:00:00, Duration: 30 day, Stop date: 06/17/15 21:00:00 Notes: (Same as: Lipitor) Start Date: 05/19/15 Stop Date: 05/20/15 Status: Discontinued atropine 0.5 mg, 5 mL, Route: IV, Drug form: INJ, ONCE, Dosing Weight 75.455, kg, PRN Bra dycardia, Start date: 05/20/15 5:07:00, symptomatic bradycardia with heart rate <44 Start Date: 05/20/15 Stop Date: 05/20/15 Status: Discontinued budesonide-formoterol 160 mcg-4.5 mcg/inh inhalation aerosol with adapter 2 inhalation, Route: INHALATION, Drug Form: AERO/A, RBID, Start date: 05/20/15 9 :56:00, Duration: 30 day, Stop date: 06/19/15 8:00:00 Notes: (Same as: Symbicort)WASTE: Aerosol - Return to Pharmacy Start Date: 05/20/15 Stop Date: 05/20/15 Status: Discontinued calcium (as carbonate)-vitamin D 600 mg-800 intl units oral tablet 1 tab, PO, BID, 0 Refill(s) Start Date: 05/19/15 Status: Ordered calcium-vitamin D 500 mg-200 intl units oral tablet 1 tab, Route: PO, Drug Form: TAB, Dosing Weight 75.455, kg, BID, Start date: 08/28 17:00:00, Duration: 30 day, Stop date: 06/19/15 9:00:00 Notes: (Same As: Simona-D, OsCal-D, Oyster Calcium) Start Date: 05/20/15 Stop Date: 05/20/15 Status: Canceled cefTRIAXone + Sodium Chloride 0.9% IV 100 mL 2 gm, Route: IVPB, [id number], Dosing Weight 75.455, kg, Priority: NOW, Start date: 05/20/15 9:29:00, Duration: 30 day, Stop date: 06/18/15 10:00:00 Notes: (Same As: Rocephin).Use with 100 mL NS and infuse over 30 min MEDICA TION WASTE Product Size: 2000 mgProduct Wasted: ___ mg Start Date: 05/20/15 Stop Date: 05/20/15 Status: Discontinued ciprofloxacin 500 mg oral tablet 500 mg=1 tab, PO, Q12H, X 7 day, # 14 tab, 0 Refill(s) Start Date: 05/20/15 Stop Date: 05/27/15 Status: Ordered Combivent inhalation aerosol with adapter 1 puff, Route: INHALATION, Drug Form: AERO, Dosing Weight 75.455, kg, QID, PRN S hortness of breath, Start date: 05/20/15 9:34:00, Duration: 30 day, Stop date: 0 06/19/15 9:33:00 Notes: Same as: Combivent RespimatWASTE: Aerosol - Return to Pharmacy Start Date: 05/20/15 Stop Date: 05/20/15 Status: Discontinued Dextrose 50% Syringe 25 gm, 50 mL, Route: IVP, Drug Form: INJ, Dosing Weight 75.455, kg, PRN, PRN Blo od Glucose Results, Start date: 05/20/15 9:33:00, Duration: 30 day, Stop date: 0 06/19/15 9:32:00 Start Date: 05/20/15 Stop Date: 05/20/15 Status: Discontinued Dextrose 50% Syringe 12.5 gm, 25 mL, Route: IVP, Drug Form: INJ, Dosing Weight 75.455, kg, PRN, PRN B lood Glucose Results, Start date: 05/20/15 9:33:00, Duration: 30 day, Stop date: 06/19/15 9:32:00 Start Date: 05/20/15 Stop Date: 05/20/15 Status: Discontinued docusate 100 mg, 1 cap, Route: PO, Drug form: CAP, BID, Dosing Weight 75.455, kg, PRN Con stipation, Start date: 05/20/15 9:30:00, Duration: 30 day, Stop date: 06/19/15 9 :29:00 Notes: (Same as: Colace) (Do Not Crush) Start Date: 05/20/15 Stop Date: 05/20/15 Status: Discontinued DuoNeb inhalation solution 3 mL, Route: INHALATION, Drug Form: SOLN, Dosing Weight 75.455, kg, TID, PRN as needed for shortness of breath or wheezing, Start date: 05/20/15 9:34:00, Durati on: 30 day, Stop date: 06/19/15 9:33:00 Notes: (Same as: Duoneb) Start Date: 05/20/15 Stop Date: 05/20/15 Status: Discontinued DuoNeb inhalation solution 3 mL, INHALATION, TID, PRN as needed for shortness of breath or wheezing, 0 Refi ll(s) Start Date: 05/19/15 Status: Ordered enoxaparin 40 mg, 0.4 mL, Route: SUB-Q, Drug form: INJ, [id number], Dosing Weight 75.455, kg, Start date: 05/20/15 10:00:00, Duration: 30 day, Stop date: 06/18/15 10:00:00 Notes: (Same as: Lovenox) Start Date: 05/20/15 Stop Date: 05/20/15 Status: Discontinued famotidine 20 mg, 1 tab, Route: PO, Drug form: TAB, Q12H, Dosing Weight 68.182, kg, Start d ate: 05/19/15 21:00:00, Duration: 30 day, Stop date: 06/18/15 9:00:00 Notes: (Same as: Pepcid) Start Date: 05/19/15 Stop Date: 05/20/15 Status: Discontinued fenofibrate 145 mg oral tablet 145 mg, 1 tab, Route: PO, Drug form: TAB, Daily, Dosing Weight 75.455, kg, Start date: 05/21/15 9:00:00, Duration: 30 day, Stop date: 06/19/15 9:00:00 Notes: (Same as: Tricor) Start Date: 05/21/15 Stop Date: 05/20/15 Status: Canceled fenofibrate 200 mg oral capsule 200 mg=1 cap, PO, Daily, 0 Refill(s) Start Date: 05/19/15 Status: Ordered Fish Oil 1,200 mg, Route: PO, Drug form: CAP, Daily, Dosing Weight 75.455, kg, Start date : 05/21/15 9:00:00, Duration: 30 day, Stop date: 06/19/15 9:00:00 Start Date: 05/21/15 Stop Date: 05/20/15 Status: Canceled gabapentin 300 mg oral capsule 300 mg, 1 cap, Route: PO, Drug form: CAP, BID, Dosing Weight 75.455, kg, Start d ate: 05/20/15 17:00:00, Duration: 30 day, Stop date: 06/19/15 9:00:00 Notes: (Same as: Neurontin) Start Date: 05/20/15 Stop Date: 05/20/15 Status: Canceled glucagon 1 mg, Route: IM, Drug form: PDR/INJ, PRN, Dosing Weight 75.455, kg, PRN Blood Gl ucose Results, Start date: 05/20/15 9:33:00, Duration: 30 day, Stop date: 9:32:00 Start Date: 05/20/15 Stop Date: 05/20/15 Status: Discontinued insulin aspart 4 unit, 0.04 mL, Route: SUB-Q, Drug form: SOLN, Bedtime, Dosing Weight 75.455, k g, PRN Blood Glucose Results, Start date: 05/20/15 9:33:00, Duration: 30 day, St op date: 06/19/15 9:32:00 Notes: Roll in palms of hands gently; Do not shake vigorously. (Same as: Nahun Gibbons)"single patient use only"WASTE: F/P - Black; E - Municipal Trash Bin Stable f or 28 days at room temperature.Expires in days from Date Start Date: 05/20/15 Stop Date: 05/20/15 Status: Discontinued insulin aspart 2 unit, 0.02 mL, Route: SUB-Q, Drug form: SOLN, Bedtime, Dosing Weight 75.455, k g, PRN Blood Glucose Results, Start date: 05/20/15 9:33:00, Duration: 30 day, St op date: 06/19/15 9:32:00 Notes: Roll in palms of hands gently; Do not shake vigorously. (Same as: Nahun Gibbons)"single patient use only"WASTE: F/P - Black; E - Municipal Trash Bin Stable f or 28 days at room temperature.Expires in days from Date Start Date: 05/20/15 Stop Date: 05/20/15 Status: Discontinued insulin aspart 1 unit, 0.01 mL, Route: SUB-Q, Drug form: SOLN, Bedtime, Dosing Weight 75.455, k g, PRN Blood Glucose Results, Start date: 05/20/15 9:33:00, Duration: 30 day, St op date: 06/19/15 9:32:00 Notes: Roll in palms of hands gently; Do not shake vigorously. (Same as: Nahun Gibbons)"single patient use only"WASTE: F/P - Black; E - Municipal Trash Bin Stable f or 28 days at room temperature.Expires in days from Date Start Date: 05/20/15 Stop Date: 05/20/15 Status: Discontinued insulin aspart 3 unit, 0.03 mL, Route: SUB-Q, Drug form: SOLN, Bedtime, Dosing Weight 75.455, k g, PRN Blood Glucose Results, Start date: 05/20/15 9:33:00, Duration: 30 day, St op date: 06/19/15 9:32:00 Notes: Roll in palms of hands gently; Do not shake vigorously. (Same as: Nahun Gibbons)"single patient use only"WASTE: F/P - Black; E - Municipal Trash Bin Stable f or 28 days at room temperature.Expires in days from Date Start Date: 05/20/15 Stop Date: 05/20/15 Status: Discontinued insulin aspart 5 unit, 0.05 mL, Route: SUB-Q, Drug form: SOLN, TID-Before Meals, Dosing Weight 75.455, kg, PRN Blood Glucose Results, Start date: 05/20/15 9:33:00, Duration: 3 0 day, Stop date: 06/19/15 9:32:00 Notes: Roll in palms of hands gently; Do not shake vigorously. (Same as: Nahun Gibbons)"single patient use only"WASTE: F/P - Black; E - Municipal Trash Bin Stable f or 28 days at room temperature.Expires in days from Date Start Date: 05/20/15 Stop Date: 05/20/15 Status: Discontinued insulin aspart 1 unit, 0.01 mL, Route: SUB-Q, Drug form: SOLN, TID-Before Meals, Dosing Weight 75.455, kg, PRN Blood Glucose Results, Start date: 05/20/15 9:33:00, Duration: 3 0 day, Stop date: 06/19/15 9:32:00 Notes: Roll in palms of hands gently; Do not shake vigorously. (Same as: Nahun Gibbons)"single patient use only"WASTE: F/P - Black; E - Municipal Trash Bin Stable f or 28 days at room temperature.Expires in days from Date Start Date: 05/20/15 Stop Date: 05/20/15 Status: Discontinued insulin aspart 4 unit, 0.04 mL, Route: SUB-Q, Drug form: SOLN, TID-Before Meals, Dosing Weight 75.455, kg, PRN Blood Glucose Results, Start date: 05/20/15 9:33:00, Duration: 3 0 day, Stop date: 06/19/15 9:32:00 Notes: Roll in palms of hands gently; Do not shake vigorously. (Same as: Nahun Gibbons)"single patient use only"WASTE: F/P - Black; E - Municipal Trash Bin Stable f or 28 days at room temperature.Expires in days from Date Start Date: 05/20/15 Stop Date: 05/20/15 Status: Discontinued insulin aspart 2 unit, 0.02 mL, Route: SUB-Q, Drug form: SOLN, TID-Before Meals, Dosing Weight 75.455, kg, PRN Blood Glucose Results, Start date: 05/20/15 9:33:00, Duration: 3 0 day, Stop date: 06/19/15 9:32:00 Notes: Roll in palms of hands gently; Do not shake vigorously. (Same as: NovoSOPHIA Gibbons)"single patient use only"WASTE: F/P - Black; E - Municipal Trash Bin Stable f or 28 days at room temperature.Expires in days from Date Start Date: 05/20/15 Stop Date: 05/20/15 Status: Discontinued insulin aspart 3 unit, 0.03 mL, Route: SUB-Q, Drug form: SOLN, TID-Before Meals, Dosing Weight 75.455, kg, PRN Blood Glucose Results, Start date: 05/20/15 9:33:00, Duration: 3 0 day, Stop date: 06/19/15 9:32:00 Notes: Roll in palms of hands gently; Do not shake vigorously. (Same as: NovoSOPHIA Gibbons)"single patient use only"WASTE: F/P - Black; E - Municipal Trash Bin Stable f or 28 days at room temperature.Expires in days from Date Start Date: 05/20/15 Stop Date: 05/20/15 Status: Discontinued levothyroxine 75 microgram, 1 tab, Route: PO, Drug form: TAB, Q6AM, Dosing Weight 75.455, kg, Start date: 05/21/15 6:00:00, Duration: 30 day, Stop date: 06/19/15 6:00:00 Notes: Take 1 hour before or 2 hours after meal; Enteral feeds may interefere wi th the absorption of this medication. (Same as:Synthroid, Levothroid) Start Date: 05/21/15 Stop Date: 05/20/15 Status: Canceled lisinopril 5 mg, 1 tab, Route: PO, Drug form: TAB, Daily, Dosing Weight 75.455, kg, Start d ate: 05/21/15 9:00:00, Duration: 30 day, Stop date: 06/19/15 9:00:00 Notes: (Same as: Prinivil, Zestril) Start Date: 05/21/15 Stop Date: 05/20/15 Status: Canceled loratadine 10 mg, 1 tab, Route: PO, Drug form: TAB, Daily, Dosing Weight 75.455, kg, Start date: 05/21/15 9:00:00, Duration: 30 day, Stop date: 06/19/15 9:00:00 Notes: 1 hr before meals (Same as: Claritin) Start Date: 05/21/15 Stop Date: 05/20/15 Status: Canceled metFORMIN 500 mg oral tablet 500 mg, 1 tab, Route: PO, Drug form: TAB, BID-Meals, Dosing Weight 75.455, kg, S tart date: 05/20/15 17:00:00, Duration: 30 day, Stop date: 06/19/15 8:00:00 Notes: (Same as: Glucophage) Take with meal Start Date: 05/20/15 Stop Date: 05/20/15 Status: Canceled Mucinex 600 mg, 1 tab, Route: PO, Drug form: ERTAB, Daily, Dosing Weight 75.455, kg, Sta rt date: 05/21/15 9:00:00, Duration: 30 day, Stop date: 06/19/15 9:00:00 Notes: (Same as: Guaifenesin LA, Humibid LA, Mucinex)"Do Not Crush" Take medica tion with plenty of water. Start Date: 05/21/15 Stop Date: 05/20/15 Status: Canceled Mucinex 600 mg oral tablet, extended release 600 mg=1 tab, PO, Daily, 0 Refill(s) Start Date: 05/19/15 Status: Ordered nitroglycerin 0.4 mg sublingual tablet 0.4 mg, 1 tab, Route: SL, Drug form: TAB, Q5Min, Dosing Weight 75.455, kg, PRN C hest Pain, Start date: 05/20/15 5:07:00, Duration: 30 day, Stop date: 06/19/15 5 :06:00 Notes: (Same as:Nitroquick, Nitrostat)"Do Not Crush" Sublingual tablet Start Date: 05/20/15 Stop Date: 05/20/15 Status: Discontinued ondansetron 4 mg, 2 mL, Route: IVP, Drug form: INJ, Q6H, Dosing Weight 75.455, kg, PRN Nause a & Vomiting, Start date: 05/20/15 9:30:00, Duration: 30 day, Stop date: 06/19/15 9:29:00 Notes: (Same as: Zofran) MEDICATION WASTE Product Size: 4 mgProduct Was sherlyn: ___ mg Start Date: 05/20/15 Stop Date: 05/20/15 Status: Discontinued Protonix 40 mg, 1 tab, Route: PO, Drug form: ECTAB, Before Dinner, Dosing Weight 75.455, kg, Start date: 05/20/15 16:30:00, Duration: 30 day, Stop date: 06/18/15 16:30:0 0 Notes: Tablet should not be chewed or crushed.(Same as: Protonix) Start Date: 05/20/15 Stop Date: 05/20/15 Status: Canceled Saline Flush 0.9% 10 mL, Route: IVP, Drug Form: INJ, Dosing Weight 68.182, kg, PRN, PRN Line Flush , Start date: 05/19/15 14:35:00, Duration: 30 day, Stop date: 06/18/15 14:34:00 Notes: (Same as: BD Posiflush) Start Date: 05/19/15 Stop Date: 05/20/15 Status: Discontinued Saline Flush 0.9% 10 ml, Route: IVP, Drug Form: INJ, Dosing Weight 68.182, kg, Q12H, Start date: 0 05/19/15 21:00:00, Duration: 30 day, Stop date: 06/18/15 9:00:00 Notes: (Same as: BD Posiflush) Start Date: 05/19/15 Stop Date: 05/20/15 Status: Discontinued Saline Flush 0.9% 10 ml, Route: IVP, Drug Form: INJ, Dosing Weight 68.182, kg, PRN, PRN Line Flush , Start date: 05/19/15 17:27:00, Duration: 30 day, Stop date: 06/18/15 17:26:00 Start Date: 05/19/15 Stop Date: 05/19/15 Status: Deleted simvastatin 40 mg, 1 tab, Route: PO, Drug form: TAB, Bedtime, Dosing Weight 75.455, kg, Star t date: 05/20/15 21:00:00, Duration: 30 day, Stop date: 06/18/15 21:00:00 Notes: (Same as: Zocor) Start Date: 05/20/15 Stop Date: 05/20/15 Status: Canceled tramadol 50 mg oral tablet 50 mg, 1 tab, Route: PO, Drug form: TAB, Q6H, Dosing Weight 75.455, kg, PRN Pain Score 4-6, Start date: 05/20/15 9:35:00, Duration: 30 day, Stop date: 06/19/15 9:34:00 Notes: Not to exceed 400mg/day. (Same As: Ultram) Start Date: 05/20/15 Stop Date: 05/20/15 Status: Discontinued Results ELECTROLYTES Most recent to 1 2 oldest [Reference Range]: Sodium Lvl [135-145 142 mEq/L 141 mEq/L mEq/L] (05/20/15 4:25 AM) (05/19/15 2:40 PM) Potassium Lvl 4.1 mEq/L 4.7 mEq/L [3.5-5.1 mEq/L] (05/20/15 4:25 AM) (05/19/15 2:40 PM) Chloride Lvl [95-109 107 mEq/L 108 mEq/L mEq/L] (05/20/15 4:25 AM) (05/19/15 2:40 PM) CO2 [24-32 mEq/L] 29 mEq/L 25 mEq/L (05/20/15 4:25 AM) (05/19/15 2:40 PM) AGAP [10.0-20.0 10.1 mEq/L 12.7 mEq/L mEq/L] (05/20/15 4:25 AM) (05/19/15 2:40 PM) CHEM PANEL Most recent to 1 2 oldest [Reference Range]: Creatinine Lvl 1.07 mg/dL 1.35 mg/dL [0.50-1.40 mg/dL] (05/20/15 4:25 AM) (05/19/15 2:40 PM) eGFR 50 mL/min/1.73m2 1 38 mL/min/1.73m2 2 *NA* *NA* (05/20/15 4:25 AM) (05/19/15 2:40 PM) BUN [7-22 mg/dL] 22 mg/dL 20 mg/dL (05/20/15 4:25 AM) (05/19/15 2:40 PM) B/C Ratio [6-25] 21 15 (05/20/15 4:25 AM) (05/19/15 2:40 PM) Glucose Lvl [70-99 115 mg/dL 128 mg/dL mg/dL] *HI* *HI* (05/20/15 4:25 AM) (05/19/15 2:40 PM) Total Protein 6.0 g/dL 6.6 g/dL [6.4-8.4 g/dL] *LOW* (05/19/15 2:40 PM) (05/20/15 4:25 AM) Albumin Lvl [3.5-5.0 3.1 g/dL 3.2 g/dL g/dL] *LOW* *LOW* (05/20/15 4:25 AM) (05/19/15 2:40 PM) Globulin [2.0-4.0 2.9 g/dL 3.4 g/dL g/dL] (05/20/15 4:25 AM) (05/19/15 2:40 PM) A/G Ratio [0.7-1.6] 1.1 0.9 (05/20/15 4:25 AM) (05/19/15 2:40 PM) Calcium Lvl 9.1 mg/dL 9.5 mg/dL [8.5-10.5 mg/dL] (05/20/15 4:25 AM) (05/19/15 2:40 PM) Phosphorus [2.5-4.5 2.6 mg/dL mg/dL] (05/19/15 2:40 PM) Magnesium Lvl 1.8 mg/dL [1.8-2.4 mg/dL] (05/19/15 2:40 PM) ALT [0-65 unit/L] 21 unit/L 21 unit/L (05/20/15 4:25 AM) (05/19/15 2:40 PM) AST [0-37 unit/L] 19 unit/L 30 unit/L (05/20/15 4:25 AM) (05/19/15 2:40 PM) Alk Phos [39-136 50 unit/L 54 unit/L unit/L] (05/20/15 4:25 AM) (05/19/15 2:40 PM) Bili Total [0.2-1.3 0.4 mg/dL 0.6 mg/dL mg/dL] (05/20/15 4:25 AM) (05/19/15 2:40 PM) 1Result Comment: The eGFR is calculated using the [...] from the National Kidney Disease Education Program ( NKDEP) which additionally recommends that when the eGFR is used in patients with extremes of body mass index for purposes of drug dosing, the eGFR should be mul tiplied by the estimated BMI. 2Result Comment: The eGFR is calculated using the [...] from the National Kidney Disease Education Program ( NKDEP) which additionally recommends that when the eGFR is used in patients with extremes of body mass index for purposes of drug dosing, the eGFR should be mul tiplied by the estimated BMI. CARDIAC ENZYMES Most recent to 1 2 oldest [Reference Range]: Total CK [12-191 62 unit/L unit/L] (05/19/15 2:40 PM) CK MB [0.5-3.6 1.3 ng/mL ng/mL] (05/19/15 2:40 PM) CK MB Index 2.1 [0.0-2.5] (05/19/15 2:40 PM) Troponin-I <0.02 ng/mL [0.00-0.40 ng/mL] (05/19/15 2:40 PM) LIPIDS Most recent to 1 2 oldest [Reference Range]: CHD Risk [3.90-5.80] 4.48 (05/20/15 4:25 AM) Chol [<=199 mg/dL] 130 mg/dL (05/20/15 4:25 AM) Trig [<=149 mg/dL] 162 mg/dL *HI* (05/20/15 4:25 AM) HDL [>=61 mg/dL] 29 mg/dL *LOW* (05/20/15 4:25 AM) LDL (Calculated) 69 mg/dL [<=99 mg/dL] (05/20/15 4:25 AM) VLDL 32 *NA* (05/20/15 4:25 AM) URINE AND STOOL Most recent to 1 2 oldest [Reference Range]: UA Turbidity [Clear] Marked *ABN* (05/19/15 5:34 PM) UA Color [Yellow] Yellow *NA* (05/19/15 5:34 PM) UA pH [5.0-8.0] 5.0 (05/19/15 5:34 PM) UA Spec Grav 1.014 [<=1.030] (05/19/15 5:34 PM) UA Glucose [Negative Negative mg/dL mg/dL] *NA* (05/19/15 5:34 PM) UA Blood [Negative] Small *ABN* (05/19/15 5:34 PM) UA Ketones [Negative Negative mg/dL mg/dL] *NA* (05/19/15 5:34 PM) UA Protein [Negative Negative mg/dL mg/dL] (05/19/15 5:34 PM) UA Urobilinogen <=1.0 mg/dL [0.1-1.0 mg/dL] *NA* (05/19/15 5:34 PM) UA Bili [Negative] Negative *NA* (05/19/15 5:34 PM) UA Leuk Est Large [Negative] *ABN* (05/19/15 5:34 PM) UA Nitrite Positive [Negative] *ABN* (05/19/15 5:34 PM) UA WBC [0-5 /HPF] 97 /HPF *HI* (05/19/15 5:34 PM) UA RBC [0-2 /HPF] 2 /HPF (05/19/15 5:34 PM) UA Bacteria [None Moderate /HPF Seen /HPF] *ABN* (05/19/15 5:34 PM) UA Sq Epi [Few /LPF] Few /LPF *NA* (05/19/15 5:34 PM) HEMATOLOGY Most recent to 1 2 oldest [Reference Range]: WBC [3.7-10.4 K/CMM] 5.4 K/CMM 5.9 K/CMM (05/20/15 4:25 AM) (05/19/15 2:40 PM) RBC [4.20-5.40 4.37 M/CMM 4.54 M/CMM M/CMM] (05/20/15 4:25 AM) (05/19/15 2:40 PM) Hgb [12.0-16.0 g/dL] 12.2 g/dL 12.6 g/dL (05/20/15 4:25 AM) (05/19/15 2:40 PM) Hct [36.0-48.0 %] 38.1 % 39.7 % (05/20/15 4:25 AM) (05/19/15 2:40 PM) MCV [80.0-98.0 fL] 87.3 fL 87.3 fL (05/20/15 4:25 AM) (05/19/15 2:40 PM) MCH [27.0-31.0 pg] 27.9 pg 27.7 pg (05/20/15 4:25 AM) (05/19/15 2:40 PM) MCHC [32.0-36.0 31.9 g/dL 31.7 g/dL g/dL] *LOW* *LOW* (05/20/15 4:25 AM) (05/19/15 2:40 PM) RDW [11.5-14.5 %] 15.1 % 15.7 % *HI* *HI* (05/20/15 4:25 AM) (05/19/15 2:40 PM) Platelet [133-450 205 K/CMM 211 K/CMM K/CMM] (05/20/15 4:25 AM) (05/19/15 2:40 PM) MPV [7.4-10.4 fL] 9.6 fL 10.0 fL (05/20/15 4:25 AM) (05/19/15 2:40 PM) Segs [45.0-75.0 %] 69.2 % 76.5 % (05/20/15 4:25 AM) *HI* (05/19/15 2:40 PM) Lymphocytes 19.8 % 14.9 % [20.0-40.0 %] *LOW* *LOW* (05/20/15 4:25 AM) (05/19/15 2:40 PM) Monocytes [2.0-12.0 7.5 % 7.0 % %] (05/20/15 4:25 AM) (05/19/15 2:40 PM) Eosinophils [0.0-4.0 2.4 % 0.8 % %] (05/20/15 4:25 AM) (05/19/15 2:40 PM) Basophils [0.0-1.0 1.1 % 0.8 % %] *HI* (05/19/15 2:40 PM) (05/20/15 4:25 AM) Segs-Bands # 3.7 K/CMM 4.5 K/CMM [1.5-8.1 K/CMM] (05/20/15 4:25 AM) (05/19/15 2:40 PM) Lymphocytes # 1.1 K/CMM 0.9 K/CMM [1.0-5.5 K/CMM] (05/20/15 4:25 AM) *LOW* (05/19/15 2:40 PM) Monocytes # [0.0-0.8 0.4 K/CMM 0.4 K/CMM K/CMM] (05/20/15 4:25 AM) (05/19/15 2:40 PM) Eosinophils # 0.1 K/CMM [0.0-0.5 K/CMM] (05/20/15 4:25 AM) Basophils # [0.0-0.2 0.1 K/CMM K/CMM] (05/20/15 4:25 AM) Immunizations No data available for this section Procedures Procedure Date Related Diagnosis Body Site Cataract surgery Cholecystectomy Eye operation Tubal ligation Social History Social History Type Response Smoking Status Former smoker; Started at age: 16.0; Stopped at age: 67; Exposure to Tobacco Smoke None; Cigarette Smoking Last 365 Days No; Reg Smoking Cessation Counseling Yes Assessment and Plan Extracted from: Title: Neurology Progress Note Author: Shandra Kumar Date: 05/20/15 Ritika LOJA Impression and Plan 1. ? TIA 2. Hypertension. 3. Hyperlipidemia. 4. UTI PLAN: Monitor this patient on telemetry, reviewed MRI of brain without contrast and carotid ultrasound Patient reports history of bleeding in the past due to aspirin and she does not want to take any antiplatelet agent. patient will be continued on statin agent. o/p neurology clinic follow up as needed. Thank you very much for this opportunity to participate in the care of your patient.
--- NOTE | 2018-07-09 12:27 | NUR ---
BLADDER SCAN PERFORMED, APPROX [id number] IN BLADDER PER SCAN.
[2018-07-09 13:46] LABS: AMORPHOUS SEDIMENT,URINE FEW (FEW); BACTERIA,URINE MODERATE /HPF; BILIRUBIN,URINE NEGATIVE (NEGATIVE); CLARITY,URINE SL CLOUDY (CLEAR); COLOR,URINE YELLOW (YELLOW); KETONES,URINE NEGATIVE (NEGATIVE); LEUKOCYTE ESTERASE ,URINE NEGATIVE (NEGATIVE); NITRITE,URINE NEGATIVE (NEGATIVE); PROTEIN,URINE DIPSTICK NEGATIVE (NEGATIVE); URINE UROBILINOGEN 0.2 mg/dL (0.2 - 1); WBC,URINE (MAN) 0-5 /HPF (0-5)
--- NOTE | 2018-07-09 14:15 | NUR ---
LEG BAG APPLIED,TOLERATED WELL. EDUCATED PAIENT ON WISE CATHETER CARE,VERBALIZED UNDERSTANDING. NO SIGNS OF ACUTE DISTRESS NOTED AT THIS TIME.
[2018-07-09 14:20] VITALS: BP 137/84
== END 2018-07-09 14:20 | disposition home or self-care (01) ==
LOC: ER 11:42
DX: R33.9 Retention of urine, unspecified (principal); N31.2 Flaccid neuropathic bladder, not elsewhere classified; N35.92 Unspecified urethral stricture, female; K21.9 Gastro-esophageal reflux disease without esophagitis; I10 Essential (primary) hypertension; E11.9 Type 2 diabetes mellitus without complications; J44.9 Chronic obstructive pulmonary disease, unspecified; J45.909 Unspecified asthma, uncomplicated; E03.9 Hypothyroidism, unspecified; Z86.73 Personal history of transient ischemic attack (TIA), and cerebral infarction without residual deficits; Z79.84 Long term (current) use of oral hypoglycemic drugs
CPT/HCPCS: 51700; 81001; 87086; 99283

== ENCOUNTER 2019-05-28 16:31 | Inpatient (IN) | payer MEDICARE, OTHER ==
[~2019-05-28] VITALS: Ht 152.4 cm; Wt 72.6 kg
[~2019-05-28 16:31] MED LIST changes: +ADVAIR 250-501 EACH INH; +ALAVERT10 M1 PO; +CALTRATE-600 W1 EACH PO; +CLOPIDOGREL75 MG PO; +COMBIVENT RESPIM4 GM IH; +ESTRACE42.5 GM TOP; +IPRAT-ALBUT 0.5-3 ML INH; +LEVOTHYROXINE75 MCG PO; +SIMVASTATIN20 MG PO; +ULTRAM 50MG50 MG PO
[2019-05-28] MEDS ORDERED: ALBUTEROL/IPRATROPIUM 3 ML NEB NEB ONE (17:15)
[2019-05-28] MEDS ORDERED: SODIUM CHLORIDE 0.9% 250ML 250 ML IV ONE (17:15)
--- NOTE | 2019-05-28 17:51 | NUR ---
INCONTINENCE CARE PROVIDED FOR STOOL
--- NOTE | 2019-05-28 18:18 | Diagnostic Imaging Report ---
EXAMINATION: CHEST SINGLE (PORTABLE) INDICATION: ^dyspnea ^[id number] ^1800 COMPARISON: 04/21/2019. FINDINGS: TUBES and LINES: None. LUNGS: Lungs are well inflated. There are bibasilar atelectasis. There is mild prominence of the central pulmonary vasculature, consistent with pulmonary venous congestion. PLEURA: Bilateral small pleural effusions. No pneumothorax. HEART AND MEDIASTINUM: Cardiac size is mildly enlarged. Enlarged bilateral central pulmonary arteries suggesting pulmonary hypertension. BONES AND SOFT TISSUES: No acute osseous lesion. Soft tissues are unremarkable. UPPER ABDOMEN: No free air under the diaphragm. IMPRESSION: 1. Mild pulmonary venous congestion and interstitial edema. 2. Bilateral small pleural effusions. 3. Enlarged pulmonary artery suggesting pulmonary hypertension. Signed by: Dr. Seema Loya M.D. on 05/28/2019 6:15 PM
[2019-05-28 18:36] LABS: BASOPHILS % 0.6 % (0.0-1.0); EOSINOPHILS % 0.8 % (0.0-6.0); LYMPHOCYTES # (AUTO) 0.9 (1.0-3.2); MEAN CORPUSCULAR HEMOGLOBIN 24.3 pg (28-32); MEAN CORPUSCULAR HGB CONC 26.8 g/dL (31-35); MEAN CORPUSCULAR VOLUME 90.8 fL (81-99); MONOCYTES # (AUTO) 0.6 (0.2-0.8); MONOCYTES % 10.4 % (4.4-11.3); NEUTROPHILS # (AUTO) 3.7 (2.1-6.9); NEUTROPHILS % 69.9 % (38.7-80.0); PLATELET COUNT 197 x10e3/uL (140-360); RED BLOOD COUNT 2.18 x10e6/uL (3.6-5.1); RED CELL DISTRIBUTION WIDTH 16.4 % (11.7-14.4)
[2019-05-28 18:41] LABS: HEMATOCRIT 19.8 % (34.2-44.1); HEMOGLOBIN 5.3 g/dL (12.0-16.0)
[2019-05-28 18:51] LABS: CREATINE KINASE 17 IU/L (29-168)
[2019-05-28 18:53] LABS: ALANINE AMINOTRANSFERASE 7 IU/L (0-55); ALBUMIN 2.7 g/dL (3.5-5.0); ALBUMIN/GLOBULIN RATIO 1.1 (0.8-2.0); ALKALINE PHOSPHATASE 62 IU/L (40-150); BLOOD UREA NITROGEN 15 mg/dL (7-26); BUN/CREATININE RATIO 20 (6-25); CALCIUM 9.4 mg/dL (8.4-10.2); CARBON DIOXIDE 38 mmol/L (22-29); CHLORIDE 102 mmol/L (98-107); CREATININE, SERUM 0.75 mg/dL (0.57-1.11); EST GLOMERULAR FILTRATION RATE > 60 ML/MIN (60-); GLUCOSE 104 mg/dL (74-118); SODIUM 150 mmol/L (136-145)
--- NOTE | 2019-05-28 18:58 | NUR ---
REPORT GIVEN TO DAVIAN MACIAS
[2019-05-28] MEDS ORDERED: SODIUM CHLORIDE 0.9% 250ML 250 ML ONE (20:38)
[2019-05-28] MEDS: FUROSEMIDE INJ 10 MG/ML 4 ML VIAL IV SCH (23:05)
[2019-05-29] VITALS (8 sets, daily range): BP systolic 122–150; BP diastolic 62–91
--- NOTE | 2019-05-29 | NUR ---
TO ROOM TO CHECK DIAPER MULTIPLE TIMES DURING SHIFT. PT NOTED C NO VOID SINCE START OF SHIFT. PT DENIES URGE TO URINATE. PT SUPRAPUBIC AREA PALPATED AND NOTED DISTENDED. INFORMED. BLADDER SCAN ORDERED. BLADDER SCAN REVEALED >999 CC URINE. PUREWICK EXTERNAL CATHETER DEVICE IN PLACE. PT ENCOURAGED TO URINATE, ABLE TO VOID APPROXIMATELY 250CC URINE. BLADDER SCAN PERFORMED P VOIDING. SCAN RESULTS REMAIN UNCHANGED, >999CC URINE. PT STATES THAT UNABLE TO VOID AT THIS TIME. DR VICENTE INFORMED. CATHETER ORDERED. 16 FR CATHETER INSERTED BY Broderick GONSALES RN USING STERILE TECHNIQUE. 850CC RETURN NOTED. CATHETER CLAMPED X 10 MINUTES TO AVOID BLADDER SPASMS. AFTER 10 MINUTES WISE UNCLAMPED WITH ADDITIONAL 300CC URINE RETURN NOTED. INFORMED OF RESULTS OF 1150CC FROM CATHETER AND 250CC VOIDED.
[2019-05-29] MEDS ORDERED: SODIUM CHLORIDE 0.9% 250ML 250 ML ONE ×2 (01:40→20:23)
[2019-05-29 02:10] LABS: CREATINE KINASE MB 0.2 ng/mL (0-5.0)
--- NOTE | 2019-05-29 04:00 | NUR ---
RECEIVED PATIENT FROM ER AOX2-3, NO SIGNS OF DISTRESS NOTED. NASAL CANNULA INTACT AND RUNNING AT 4 LITERS AND PATIENT VOICED HEADACHE AT A LEVEL OF 7 AND WAS MEDICATED ORDERED. BED IS IN LOW POSITION, BOTH SIDE RAILS ARE UP, CALL LIGHT WITHIN REACH, WILL CONTINUE TO MONITOR.
[2019-05-29] MEDS: ACETAMINOPHEN 325 MG TAB PO PRN ×2 (04:07→14:00)
--- NOTE | 2019-05-29 04:45 | NUR ---
DR. Joycelyn MEJIA HAS MADE ROUNDS WITH PATIENT, CONSENT FOR EGD HAS BEEN ORDERED AND NPO.
--- NOTE | 2019-05-29 05:00 | NUR ---
PATIENT HAS FINISHED SECOND UNIT OF BLOOD, ALL VITALS ARE WITHIN NORMAL RANGE.
[2019-05-29] MEDS: FUROSEMIDE INJ 10 MG/ML 4 ML VIAL IV SCH (05:30)
[2019-05-29 05:49] LABS: BASOPHILS % 0.6 % (0.0-1.0); EOSINOPHILS % 0.6 % (0.0-6.0); LYMPHOCYTES # (AUTO) 0.9 (1.0-3.2); LYMPHOCYTES % 18.6 % (18.0-39.1); MEAN CORPUSCULAR HEMOGLOBIN 24.1 pg (28-32); MEAN CORPUSCULAR HGB CONC 29.1 g/dL (31-35); MEAN CORPUSCULAR VOLUME 82.9 fL (81-99); MONOCYTES # (AUTO) 0.6 (0.2-0.8); MONOCYTES % 11.7 % (4.4-11.3); NEUTROPHILS # (AUTO) 3.2 (2.1-6.9); PLATELET COUNT 165 x10e3/uL (140-360); RED BLOOD COUNT 2.86 x10e6/uL (3.6-5.1); RED CELL DISTRIBUTION WIDTH 22.1 % (11.7-14.4)
[2019-05-29 05:58] LABS: INR 1.06; PROTHROMBIN TIME 14.5 seconds (11.9-14.5)
[2019-05-29 05:59] LABS: PARTIAL THROMBOPLASTIN TIME 30.2 seconds (23.8-35.5)
[2019-05-29 06:00] LABS: HEMATOCRIT 23.7 % (34.2-44.1); HEMOGLOBIN 6.9 g/dL (12.0-16.0)
[2019-05-29 06:16] LABS: ANION GAP 12.5 mmol/L (8-16); BLOOD UREA NITROGEN 13 mg/dL (7-26); BUN/CREATININE RATIO 17 (6-25); CALCIUM 9.1 mg/dL (8.4-10.2); CHLORIDE 97 mmol/L (98-107); CREATININE, SERUM 0.78 mg/dL (0.57-1.11); EST GLOMERULAR FILTRATION RATE > 60 ML/MIN (60-); GLUCOSE 101 mg/dL (74-118); POTASSIUM 3.5 mmol/L (3.5-5.1); SODIUM 148 mmol/L (136-145)
[2019-05-29 06:23] LABS: CARBON DIOXIDE 42 mmol/L (22-29)
[2019-05-29 06:24] LABS: FERRITIN 10.57 ng/mL (4.63-204.00)
[2019-05-29 06:42] LABS: CREATINE KINASE MB 1.7 ng/mL (0-5.0)
[2019-05-29 07:58] LABS: EOSINOPHILS % (MANUAL) 1 % (0-7); LYMPHOCYTES % (MANUAL) 18 % (19-48); MONOCYTES % (MANUAL) 8 % (3.4-9.0); NEUTROPHILS % (MANUAL) 73 % (40-74); PLATELET ESTIMATE ADEQUATE; PLATELET MORPHOLOGY COMMENT NORMAL; RBC MORPHOLOGY COMMENT NORMAL
[2019-05-29 08:11] LABS: HEMATOCRIT 24.4 % (34.2-44.1); HEMOGLOBIN 7.2 g/dL (12.0-16.0)
[2019-05-29] MEDS: ALBUTEROL/IPRATROPIUM 3 ML NEB NEB SCH ×3 (08:45→19:30)
[2019-05-29] MEDS ORDERED: DEXAMETHASONE SOD PHOS 10 MG/1 ML VIAL IV PRN (08:45)
[2019-05-29] MEDS ORDERED: TRAMADOL HCL 50 MG TAB PO PRN (08:45)
[2019-05-29] MEDS ORDERED: FUROSEMIDE INJ 10 MG/ML 2 ML VIAL IV PRN (08:45)
[2019-05-29] MEDS ORDERED: ALBUTEROL/IPRATROPIUM 3 ML NEB NEB PRN (08:45)
[2019-05-29] MEDS ORDERED: METOPROLOL TARTRATE 25 MG TAB PO SCH (09:00)
--- NOTE | 2019-05-29 09:20 | NUR ---
ASSESSMENT: No spiritual concerns Pt's son at bedside. Pt identifies as Caodaism. Intervention: Provided hospitality, prayer and information on how to reach natural resource specialist, if needed. Outcome: Pt & son expressed appreciation for visit. No need to follow at this time. MORAIMA [employer] Software Test Technician Spiritual Care Department O: [phone]
[2019-05-29] MEDS ORDERED: FUROSEMIDE INJ 10 MG/ML 4 ML VIAL IV ONE (09:30)
[2019-05-29] MEDS ORDERED: SODIUM CHLORIDE 0.9% 250ML 250 ML IV ONE (09:30)
[2019-05-29] MEDS: SALMETEROL/FLUTICASONE 250/50 INH SCH ×2 (10:00→19:30)
--- NOTE | 2019-05-29 10:00 | NUR ---
SPOKE WITH KAROLYN RN IN OR, STATES WILL HAVE EGD TODAY, GO AHEAD AND START 1 UNIT PRBC PER MD Melvin MEJIA, MADE AWARE PRBC WAS NOT READY YET
[2019-05-29] MEDS: PANTOPRAZOLE 40 MG 10ML VIAL IV SCH ×2 (11:30→21:06)
[2019-05-29] MEDS: LEVOTHYROXINE SODIUM 75 MCG TAB PO SCH (11:30)
--- NOTE | 2019-05-29 11:40 | NUR ---
PRBC NOT READY AT THIS TIME, AWAITING CALL FROM LAB
[2019-05-29] MEDS ORDERED: EPINEPHRINE HCL 1:1000 1ML 1 MG/ML AMP ONE (14:28)
[2019-05-29] MEDS ORDERED: GLUCAGON FOR INJ 1 MG VIAL ONE (14:28)
[2019-05-29] MEDS ORDERED: PROPOFOL IV EMULSION 10 MG/ML 50 ML VIAL ONE (14:28)
--- NOTE | 2019-05-29 15:15 | NUR ---
1500 PT WHEELED OFF UNIT VIA BED FOR EGD, 1ST UNIT OF PRBC INFUSING, REPORT TO KAROLYN RN TAKING OVER CARE OF PT
--- NOTE | 2019-05-29 15:28 | History and Physical ---
CHIEF COMPLAINT: Severe anemia. PRIMARY CARE PHYSICIAN: Dr. Odell. HISTORY OF PRESENT ILLNESS: The patient is an 79-year-old female, multiple medical problems, liver cirrhosis, COPD, coronary artery disease with previous NE, CVA, asthma, hypothyroidism, hypertension, type 2 diabetes, history of tubal ligation, and cholecystectomy. The patient had recurrent pulmonary COPD exacerbation. The patient came in now with increasing shortness of breath and the patient found to have a hemoglobin of 5.3. The patient's platelet was 197. Retic count was high at 4.7. The patient is other than shortness of breath, she was stable. She did receive blood transfusion 2 units of blood. Hemoglobin and hematocrit are 7.2 and 24.4 respectively. The patient is pending for endoscopy. PAST MEDICAL HISTORY: Liver cirrhosis, COPD, hypertension, atrial fibrillation, asthma, hypothyroidism, coronary artery disease, history of NE, TIA, CVA, type 2 diabetes, and dyslipidemia. PAST SURGICAL HISTORY: History of cholecystectomy and tubal ligation. SOCIAL HISTORY: The patient is a smoker. She denies alcohol use. No recreational drug use. ALLERGIES: NO KNOWN ALLERGIES. HOME MEDICATIONS: The patient is on calcium, estradiol, Flonase, gabapentin, nebulizer treatment, tramadol, simvastatin, loratadine, and levothyroxine. PHYSICAL EXAMINATION: VITAL SIGNS: Temperature is 97, blood pressure 140/91, pulse rate is 85, and respiration 20. GENERAL: The patient is not in acute distress. She is awake. HEENT: Normocephalic and traumatic. She is anicteric. NECK: Supple grossly. PULMONARY: Diminished breath sounds. CARDIOVASCULAR: S1 and S2. Regular rate and rhythm. ABDOMEN: Soft, nontender, and non-distention. EXTREMITIES: No gross cyanosis or edema. NEUROLOGIC: No gross focal deficit. LABORATORY DATA: Sodium is 148, potassium 3.5, chloride 97, bicarb 32, BUN 13, creatinine 0.7, and glucose 101. WBC 4.8, hemoglobin 7.2 after 2 units of blood transfusion, hematocrit is 24, and platelets is 165. INR is 1.06. Liver enzymes unremarkable. IMPRESSION: Melena with [id number] blood loss anemia, most likely secondary to multiple factors, if the patient was taking Eliquis or gastritis versus gastric ulcer, upper or lower GI bleed. The patient will need to have further workup include endoscopy. In the meantime, transfuse the patient with 2 more units of blood to have the patient's hemoglobin above 9 if possible. The patient will have endoscopy today and we will continue to manage her respiratory problem. Resume home medication. We will follow up on lab as well. MD MARTIN Mtz/KEIRY /[id number]
--- NOTE | 2019-05-29 17:00 | NUR ---
BACK IN ROOM VIA BED FROM PACU, UNIT , UNIT OF PRBC COMPLETE HANGING, IV FLUSHED , PT AA&OX3, 3L NC , SATS AT 86-88%, PT REQUESTING O2 AT 4L PER HER HOME ROUTINE, INCREASED TO 4L, SATS AT 88-90%, BP WNL, NO DISTRESS, FAMILY AT SIDE, CALL LIGHT WITHIN REACH
--- NOTE | 2019-05-29 17:25 | NUR ---
FAMILY SPOKE WITH SS AND WAS PROVIDED WITH INFORMATION
--- NOTE | 2019-05-29 18:10 | NUR ---
PT ATTEMPTED TO GET OOB , PT REDIRECTED, PT STATES "JUST FELT THE NEED TO GO", O2 SATS 90-91% AT THIS TIME, SPOKE WITH DR Melvin MEJIA REGARDING DIET ORDER, MADE AWARE OF DECREASED SATS INTERMITTENT, CALL LIGHT WITHIN REACH
--- NOTE | 2019-05-29 18:49 | NUR ---
TELEPHONED MD CHAKRABORTY CELL TO MAKE AWARE OF LOWER SATS AFTER EGD, UNABLE TO LEAVE MESSAGE, PT SATS AT THIS [id number]%
[2019-05-29] MEDS: METOPROLOL TARTRATE 25 MG TAB PO SCH (21:06)
[2019-05-29] MEDS: SIMVASTATIN 20 MG TAB PO SCH (21:06)
--- NOTE | 2019-05-29 23:05 | Operative Report ---
DATE OF PROCEDURE: 05/29/2019 SURGEON: Dominic Hall MD PROCEDURE: EGD with fulguration and hemoclipping of an actively bleeding duodenal AVM. INDICATIONS FOR PROCEDURE: Anemia, melena. MEDICATIONS: The patient was done under MAC. Please see anesthesiologist's note. PROCEDURE IN DETAIL: With the patient in left lateral decubitus position, a flexible fiberoptic Olympus gastroscope was introduced into the esophagus under direct visualization without any difficulty. A small diverticulum was noted in the mid esophagus. There was some patchy erythema noted in distal esophagus. The scope was then advanced with ease into the stomach and mucosa overlying the antrum and the body revealed some patchy areas of erythema. Pylorus was of normal contour and shape, was intubated with ease and the scope was advanced all the way to the second portion of the duodenum. An actively bleeding AVM was noted in the second portion of the duodenum, which was fulgurated with size 7-[place] Gold Probe and was hemoclipped x2 with excellent hemostasis. The scope was then withdrawn back into the stomach and retroflexed mucosa overlying the fundus and cardia appeared to be within normal limits. The scope was then straightened out, it was subsequently withdrawn, the patient tolerated the procedure well. IMPRESSION: 1. Small esophageal diverticulum, mid esophagus. 2. Distal esophagitis, mild. 3. Gastritis, mild. 4. 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 PLAN: Follow H and H. Continue current therapy. Initiate clear liquid diet. Dominic Hall MD [facility] [place] /[id number] cc: Giovanni Mcfarlane MD
[2019-05-30] VITALS (7 sets, daily range): BP systolic 108–151; BP diastolic 52–73
[2019-05-30] MEDS: ALBUTEROL/IPRATROPIUM 3 ML NEB NEB SCH ×4 (00:55→19:00)
[2019-05-30] MEDS: ACETAMINOPHEN 325 MG TAB PO PRN (01:07)
[2019-05-30] MEDS: LEVOTHYROXINE SODIUM 75 MCG TAB PO SCH (05:15)
[2019-05-30 06:47] LABS: BASOPHILS % 0.2 % (0.0-1.0); HEMATOCRIT 33.2 % (34.2-44.1); LYMPHOCYTES # (AUTO) 0.8 (1.0-3.2); LYMPHOCYTES % 17.3 % (18.0-39.1); MEAN CORPUSCULAR HEMOGLOBIN 24.8 pg (28-32); MEAN CORPUSCULAR HGB CONC 30.1 g/dL (31-35); MEAN CORPUSCULAR VOLUME 82.2 fL (81-99); MONOCYTES # (AUTO) 0.3 (0.2-0.8); NEUTROPHILS # (AUTO) 3.6 (2.1-6.9); NEUTROPHILS % 75.3 % (38.7-80.0); PLATELET COUNT 194 x10e3/uL (140-360); RED BLOOD COUNT 4.04 x10e6/uL (3.6-5.1); RED CELL DISTRIBUTION WIDTH 18.8 % (11.7-14.4)
[2019-05-30 07:01] LABS: ANION GAP 24.8 mmol/L (8-16); CREATININE, SERUM 1.06 mg/dL (0.57-1.11); POTASSIUM 3.8 mmol/L (3.5-5.1)
--- NOTE | 2019-05-30 08:52 | NUR ---
PT SAID SHE DID NOT FEEL WELL TO PARTICIPATE IN DPA, SAID HER SON CHRISTINE DOES ALL THAT. SW LEFT BUSINESS CARD FOR SON TO CALL WITH ANY CONCERNS
[2019-05-30] MEDS: PANTOPRAZOLE 40 MG 10ML VIAL IV SCH (09:30)
[2019-05-30] MEDS: METOPROLOL TARTRATE 25 MG TAB PO SCH ×2 (09:31→21:09)
[2019-05-30] MEDS ORDERED: POTASSIUM CHLORIDE 10MEQ EA PO ONE (11:00)
[2019-05-30] MEDS ORDERED: FUROSEMIDE INJ 10 MG/ML 4 ML VIAL IV ONE (11:00)
[2019-05-30] MEDS: SUCRALFATE 1 GM/10 ML SUSP NG SCH ×3 (11:30→21:09)
[2019-05-30] MEDS: SALMETEROL/FLUTICASONE 250/50 INH SCH ×2 (13:43→19:45)
[2019-05-30] MEDS: CYANOCOBALAMIN INJ 1,000 MCG/ML VIAL IM ONE ×2 (20:40→23:40)
[2019-05-30] MEDS: SIMVASTATIN 20 MG TAB PO SCH (21:09)
[2019-05-31] VITALS (7 sets, daily range): BP systolic 105–138; BP diastolic 55–65
[2019-05-31] MEDS: ALBUTEROL/IPRATROPIUM 3 ML NEB NEB SCH ×5 (01:05→23:38)
--- NOTE | 2019-05-31 04:45 | NUR ---
BED BATH AND JEEVAN CARE DONE PER [facility].
[2019-05-31] MEDS: LEVOTHYROXINE SODIUM 75 MCG TAB PO SCH (05:50)
[2019-05-31 06:31] LABS: BASOPHILS % 0.4 % (0.0-1.0); EOSINOPHILS % 0.4 % (0.0-6.0); HEMATOCRIT 33.1 % (34.2-44.1); HEMOGLOBIN 9.7 g/dL (12.0-16.0); LYMPHOCYTES % 18.4 % (18.0-39.1); MEAN CORPUSCULAR HEMOGLOBIN 24.7 pg (28-32); MEAN CORPUSCULAR HGB CONC 29.3 g/dL (31-35); MEAN CORPUSCULAR VOLUME 84.4 fL (81-99); MONOCYTES # (AUTO) 0.5 (0.2-0.8); MONOCYTES % 9.4 % (4.4-11.3); NEUTROPHILS # (AUTO) 3.8 (2.1-6.9); NEUTROPHILS % 70.3 % (38.7-80.0); PLATELET COUNT 180 x10e3/uL (140-360); RED BLOOD COUNT 3.92 x10e6/uL (3.6-5.1); RED CELL DISTRIBUTION WIDTH 19.2 % (11.7-14.4)
[2019-05-31] MEDS: SALMETEROL/FLUTICASONE 250/50 INH SCH ×2 (06:40→19:20)
[2019-05-31 06:46] LABS: CALCIUM 8.6 mg/dL (8.4-10.2); CREATININE, SERUM 1.07 mg/dL (0.57-1.11); POTASSIUM 3.4 mmol/L (3.5-5.1)
[2019-05-31 07:23] LABS: ANION GAP 16.4 mmol/L (8-16)
[2019-05-31] MEDS: SUCRALFATE 1 GM/10 ML SUSP NG SCH ×4 (07:30→20:52)
[2019-05-31] MEDS ORDERED: IRON SUCROSE 100 MG in SODIUM CHLORIDE 0.9% 100 ML 100 ML IV SCH (08:00)
[2019-05-31] MEDS: PANTOPRAZOLE SOD 40 MG TABEC PO SCH (08:30)
[2019-05-31] MEDS: CYANOCOBALAMIN INJ 1,000 MCG/ML VIAL IM SCH (09:00)
[2019-05-31] MEDS: METOPROLOL TARTRATE 25 MG TAB PO SCH ×2 (09:00→20:52)
[2019-05-31] MEDS ORDERED: POTASSIUM CHLORIDE 10MEQ EA PO ONE (11:30)
[2019-05-31] MEDS: ACETAMINOPHEN 325 MG TAB PO PRN ×2 (13:37→14:37)
[2019-05-31] MEDS: SIMVASTATIN 20 MG TAB PO SCH (20:52)
[2019-05-31] MEDS: IRON SUCROSE 100 MG in SODIUM CHLORIDE 0.9% 100 ML 100 ML IV SCH (20:52)
[2019-06-01] VITALS (8 sets, daily range): BP systolic 119–141; BP diastolic 59–79
[2019-06-01] MEDS: LEVOTHYROXINE SODIUM 75 MCG TAB PO SCH (05:12)
--- NOTE | 2019-06-01 06:05 | NUR ---
weinberg catheter care done per Naty PCT
--- NOTE | 2019-06-01 07:00 | NUR ---
RECEIVED BEDSIDE SHIFT REPORT FROM JAYY CASTREJON. PT DENIES NEEDS AT THIS TIME.
[2019-06-01] MEDS: ALBUTEROL/IPRATROPIUM 3 ML NEB NEB SCH ×2 (08:10→20:35)
[2019-06-01] MEDS: CYANOCOBALAMIN INJ 1,000 MCG/ML VIAL IM SCH (08:58)
[2019-06-01] MEDS: SUCRALFATE 1 GM/10 ML SUSP NG SCH ×4 (08:58→22:00)
[2019-06-01] MEDS: PANTOPRAZOLE SOD 40 MG TABEC PO SCH (08:58)
[2019-06-01] MEDS: PREDNISONE 10 MG TAB PO SCH ×2 (09:00→17:14)
[2019-06-01] MEDS: METOPROLOL TARTRATE 25 MG TAB PO SCH ×2 (09:00→22:00)
[2019-06-01] MEDS ORDERED: POTASSIUM CHLORIDE 10MEQ EA PO ONE (09:15)
[2019-06-01] MEDS ORDERED: FUROSEMIDE INJ 10 MG/ML 4 ML VIAL IV ONE (09:20)
[2019-06-01] MEDS: SALMETEROL/FLUTICASONE 250/50 INH SCH ×2 (10:57→20:35)
--- NOTE | 2019-06-01 11:00 | NUR ---
ORDERS FOR SNF TODAY LIST OF IN NETWORK SNF FACILITIES [facility] TAKEN TO ROOM ALONG WITH MY BUSINESS CARD PT DEFERRED SNF DECISION TO HER SON CHRISTINE PAGE, CM CALLED AND LEFT VOICE MAIL FOR CHRISTINE TO RETURN MY CALL AWAIT CALL BACK
--- NOTE | 2019-06-01 13:25 | NUR ---
CALL OUT TO DR. CHAKRABORTY ABOUT NEED FOR PICC LINE FOR CT WITH CONTRAST.
--- NOTE | 2019-06-01 13:48 | NUR ---
REPORT CALLED TO ZENA ON MED/SURG 2. PT TRANSFER TO RM 211.
--- NOTE | 2019-06-01 14:09 | NUR ---
PATIENT RECEIVED FROM MED SURG 1 PER STRETCHER. ALERT AND VERBALLY RESPONSIVE. DENIED PAIN AT THIS TI ME. AWAITING FOR PICC LINE PLACEMENT, PICC TEAM AWARE. IN BED WITH CALL LIGHT AT REACH. FAMILY AT BED SIDE.
--- NOTE | 2019-06-01 15:57 | Diagnostic Imaging Report ---
EXAMINATION: CHEST XRAY LINE PLACEMENT INDICATION: Line placement COMPARISON: Chest radiograph 05/28/2019 FINDINGS: LINES/TUBES:Interval placement of right PICC line, terminating in the superior vena cava. EKG leads overlie the chest. LUNGS:The lungs are moderately inflated. Right greater than left basilar opacities. PLEURA:Small bilateral pleural effusions. No pneumothorax. MEDIASTINUM:The cardiomediastinal silhouette appears unchanged in size and shape. BONES/SOFT TISSUES:No acute osseous injury. ABDOMEN:No free air under the diaphragm. IMPRESSION: Right PICC line terminates in the superior vena cava. Small bilateral pleural effusions. Right greater than left bibasilar patchy opacities, most likely subsegmental atelectasis. Signed by: Janet Núñez MD on 06/01/2019 3:55 PM
[2019-06-01] MEDS ORDERED: SODIUM CHLORIDE 0.9% 500ML 500 ML IV ONE (17:15)
[2019-06-01] MEDS ORDERED: SODIUM CHLORIDE 0.9% 50ML 50 ML ONE (18:18)
[2019-06-01] MEDS ORDERED: IOPAMIDOL 370 MG/ML 200 ML INFUS..BTL INJ ONE (18:19)
--- NOTE | 2019-06-01 18:35 | NUR ---
PATIENT OFF UNIT TO RADIOLOGY.
--- NOTE | 2019-06-01 19:26 | NUR ---
BED SIDE SHIFT REPORT GIVEN TO ON COMING NURSE.
--- NOTE | 2019-06-01 19:38 | NUR ---
Patient received sitting up in bed. AAO x 3. Patient had no complaints of pain. No signs of respiratory distress. Fall precautions implemented. Patient instructed to call for assistance when needed. Call light within reach.
--- NOTE | 2019-06-01 20:57 | Diagnostic Imaging Report ---
EXAM: CT Chest WITH contrast 06/01/2019 8:25 AM INDICATION: Shortness of breath COMPARISON: Chest x-ray, 06/01/2019; chest CT, 04/21/2019; CT abdomen/pelvis, 04/23/2019 TECHNIQUE: Chest was scanned utilizing a multidetector helical scanner from the lung apex through the level of the diaphragm after administration of IV contrast. Thin section reconstructions were obtained with special concentration on the pulmonary arteries. Coronal and sagittal reformations were obtained. Pulmonary embolism protocol was performed. Dose modulation, iterative reconstruction, and/or weight based adjustment of the mA/kV was utilized to reduce the radiation dose to as low as reasonably achievable IV CONTRAST: 100 cc Isovue-370 RADIATION DOSE: Total DLP: 477.30 mGy*cm Estimated effective dose: (DLP x 0.014 x size factor) mSv COMPLICATIONS: None FINDINGS: LINES/ TUBES: Right PICC extends to the lower SVC. LUNGS AND AIRWAYS: No filling defect is identified within the pulmonary arteries to the segmental level. There is consolidation with air bronchograms in the right middle lobe and at the base of the right lower lobe. Patchy airspace opacities are seen elsewhere in the right lower lobe. Patchy airspace opacities are also seen at the base of the left lower lobe. Trachea and main bronchi are clear. There is bilateral perihilar bronchial wall thickening. PLEURA: There is a small right pleural effusion. HEART AND MEDIASTINUM: The thyroid gland is normal. No mediastinal, hilar or axillary lymphadenopathy. The heart is slightly enlarged. There is no pericardial effusion. The aorta is atherosclerotic with scattered calcified plaque. Ascending aorta measures 4.0 cm, main pulmonary artery 3.2 cm, dilated. The partially visualized mid abdominal aorta, below the renal arteries, contains extensive mural thrombus with mild narrowing of the opacified lumen.. UPPER ABDOMEN: Included portions of the liver show nodular contour compatible with cirrhosis. Prominent tortuous vessels near the GE junction are compatible with varices as noted on previous exam. There is a punctate calculus in the right renal collecting system. There are partially visualized cysts in the upper portion of the right kidney. BONES: No acute or suspicious bony lesions. Degenerative changes are seen in the thoracic spine with evidence for bony demineralization. SOFT TISSUES: There is a focal area density measuring 2.1 cm in the right breast which is of uncertain significance. IMPRESSION: 1. Consolidations with air bronchograms in the right middle lobe and right lower lobe. To a lesser extent these findings are also present in the left lower lobe. Findings suggest multifocal pneumonia. Small right pleural effusion. 2. No CT evidence for acute pulmonary embolus. Main pulmonary artery is dilated as on the previous exam, suggesting pulmonary hypertension. Ascending thoracic aorta is ectatic measuring 4.0 cm, unchanged from previous exam. 3. Extensive atherosclerosis of the aorta and coronary arteries. Partially visualized infrarenal abdominal aorta contains extensive mural thrombus with narrowing of the lumen. 4. Focal 2.1 cm density in the right breast of indeterminate significance. Correlation with mammography is recommended if not recently performed. Staff: Chance Signed by: Dr. Edmond Fletcher M.D. on 06/01/2019 8:55 PM
[2019-06-01] MEDS: IRON SUCROSE 100 MG in SODIUM CHLORIDE 0.9% 100 ML 100 ML IV SCH (21:00)
[2019-06-01] MEDS: SIMVASTATIN 20 MG TAB PO SCH (22:00)
[2019-06-02] VITALS (7 sets, daily range): BP systolic 111–138; BP diastolic 60–73
[2019-06-02] MEDS: ALBUTEROL/IPRATROPIUM 3 ML NEB NEB SCH ×2 (02:05→07:20)
[2019-06-02 04:59] LABS: BASOPHILS % 0.2 % (0.0-1.0); HEMATOCRIT 32.5 % (34.2-44.1); HEMOGLOBIN 9.5 g/dL (12.0-16.0); LYMPHOCYTES # (AUTO) 0.8 (1.0-3.2); LYMPHOCYTES % 8.6 % (18.0-39.1); MEAN CORPUSCULAR HEMOGLOBIN 25.1 pg (28-32); MEAN CORPUSCULAR HGB CONC 29.2 g/dL (31-35); MONOCYTES # (AUTO) 0.6 (0.2-0.8); MONOCYTES % 5.7 % (4.4-11.3); NEUTROPHILS # (AUTO) 8.3 (2.1-6.9); NEUTROPHILS % 84.9 % (38.7-80.0); PLATELET COUNT 148 x10e3/uL (140-360); RED BLOOD COUNT 3.78 x10e6/uL (3.6-5.1); RED CELL DISTRIBUTION WIDTH 18.9 % (11.7-14.4)
--- NOTE | 2019-06-02 05:00 | NUR ---
Blood specimen drawn from PICC line and sent to the lab for analysis.
[2019-06-02 05:18] LABS: ANION GAP 11.6 mmol/L (8-16); CALCIUM 8.6 mg/dL (8.4-10.2); CREATININE, SERUM 0.92 mg/dL (0.57-1.11); POTASSIUM 3.6 mmol/L (3.5-5.1)
[2019-06-02] MEDS: LEVOTHYROXINE SODIUM 75 MCG TAB PO SCH (05:52)
[2019-06-02] MEDS: SALMETEROL/FLUTICASONE 250/50 INH SCH (07:00)
--- NOTE | 2019-06-02 07:00 | NUR ---
Walking rounds done. Patient resting comfortably. BSSR given to oncoming nurse.
[2019-06-02] MEDS: PREDNISONE 10 MG TAB PO SCH (09:24)
[2019-06-02] MEDS: PANTOPRAZOLE SOD 40 MG TABEC PO SCH (09:24)
[2019-06-02] MEDS: METOPROLOL TARTRATE 25 MG TAB PO SCH (09:24)
[2019-06-02] MEDS: SUCRALFATE 1 GM/10 ML SUSP NG SCH ×2 (09:25→11:35)
[2019-06-02] MEDS: CYANOCOBALAMIN INJ 1,000 MCG/ML VIAL IM SCH (09:26)
--- NOTE | 2019-06-02 09:55 | NUR ---
COMPLETED PASRR AND RTF AND PUT WITH CHART AND FAXED TO THE FACILITY TO COMPLETE TRANSFER
--- NOTE | 2019-06-02 11:18 | NUR ---
[facility] FACILITY DISCHARGE INFORMATION PATIENT HAS BEEN ACCEPTED TO: NAME: [facility] ADDRESS:[id number] ACCEPTING MD:CARMENZA ROOM:[id number] NURSE CALL REPORT TO: [phone] IMM SIGNED AND OBTAINED (if applicable): YES THE FOLLOWING DOCUMENTS MUST ACCOMPANY PATIENT FOR TRANSFER: COPIED CHART: PACKET
--- NOTE | 2019-06-02 12:44 | NUR ---
REPORT CALLED TO SHERITA AT [facility]. AMBULANCE TRANSFER HERE TO TRANSFER ON O2. PATIENT CALLED AND INFORMED SON AT BEDSIDE THAT SHE WAS BEING TRANSFERRED. ALL BELONGINGS, CLOTHES AND HOUSE SHOES AND MEDICAL PICTURES AND O2 TANKS (2) WITH WHEELED LYN WENT WITH PATIENT AND AMBULANCE TRANSFER.
== END 2019-06-02 12:45 | DRG 357 ==
LOC: ER 16:31 → ERHOLD 18:42 → MED/SURG 05-29 03:10 → MED/SURG2 06-01 13:57
PROVIDERS: ADMIT Internal Medicine; ATTEND Internal Medicine
PROC: 0W3P3ZZ Control Bleeding in Gastrointestinal Tract, Percutaneous Approach (ICD-10-PCS; principal; 2019-05-29 15:44)
PROC: 02HV33Z Insertion of Infusion Device into Superior Vena Cava, Percutaneous Approach (ICD-10-PCS; 2019-06-01)
DX: K31.811 Angiodysplasia of stomach and duodenum with bleeding (principal); D62 Acute posthemorrhagic anemia; J44.1 Chronic obstructive pulmonary disease with (acute) exacerbation; K29.70 Gastritis, unspecified, without bleeding; K74.60 Unspecified cirrhosis of liver; I25.2 Old myocardial infarction; Z86.73 Personal history of transient ischemic attack (TIA), and cerebral infarction without residual deficits; E03.9 Hypothyroidism, unspecified; E11.9 Type 2 diabetes mellitus without complications; I48.91 Unspecified atrial fibrillation; Z79.01 Long term (current) use of anticoagulants; I25.10 Atherosclerotic heart disease of native coronary artery without angina pectoris; I10 Essential (primary) hypertension
CPT/HCPCS: 36415; 36569; 43255; 51700; 71045; 71260; 80048; 80053; 82550; 82553; 82607; 82728; 82746; 82948; 83540; 83880; 84466; 84484; 85014; 85018; 85025; 85045; 85610; 85730; 86850; 86900; 86920; 93005; 94640; 94664; 97139; 99284; J0171; J1100; J1610; J1756; J1940; J3420; J7040; J7050; J7512; P9016; Q9967

== ENCOUNTER 2020-02-16 02:24 | Inpatient (IN) | payer MEDICARE ==
[~2020-02-16] VITALS: Ht 180.3 cm; Wt 72.6 kg
[2020-02-16] VITALS (7 sets, daily range): BP systolic 108–155; BP diastolic 73–93
[~2020-02-16 02:24] MED LIST changes: -Z.0.NEURONTIN300 MG; +Z.0.NEURONTIN300 MG PO
[2020-02-16] MEDS ORDERED: SODIUM CHLORIDE 0.9% 1000ML 1,000 ML IV STA ×2 (02:27→06:39)
[2020-02-16] MEDS ORDERED: ACETAMINOPHEN 325 MG TAB PO STA ×2 (02:27→02:38)
[2020-02-16] MEDS ORDERED: ASPIRIN 81 MG CHEW TAB PO ONE ×2 (02:30→03:45)
--- NOTE | 2020-02-16 02:31 | Emergency Department Note ---
History of Present Illnes History of Present Illness History of Present Illness This is a 80 year old female brought by EMS for evaluation of lethargy as noted by son which started after dinner. EMS noted HR elevated 105 with T at 102 . Historian: Patient, Family Member Arrival Mode: [place] Onset (how long ago): hour(s) Severity: moderate Duration (how long): hour(s) Timing of current episode: constant Progression: worsening Chronicity: new Context: Denies recent illness, Denies recent surgery, Denies recent immobilization, Denies recent travel, Denies trauma/injury, Denies new medications, Denies hx of DVT/PE, Denies non-compliance w/ medications, Denies other Relieving factors: none Exacerbating factors: none Associated symptoms: Reports fever/chills, Reports shortness of breath, Reports weakness (REYES CHAKRABORTY DO) Past Medical/Family History Physician Review I have reviewed the patient's past medical and family history. Any updates have been documented here. (REYES CHAKRABORTY DO) Past Medical History Recent Fever: Yes Clinical Suspicion of Infectio: Yes New/Unexplained Change in Ment: No Past Medical History: Hypertension, Diabetes, COPD, Hypothyroidism Past Surgical History: Cholecysctectomy, Tubal Ligation (REYES CHAKRABORTY DO) Social History Smoking Cessation: Never Smoker Alcohol Use: None Any Illegal Drug Use: No (REYES CHAKRABORTY DO) Other Last Tetanus: UNKNOWN (REYES CHAKRABORTY DO) Review of Systems Review of Systems Constitutional: Reports weakness EENTM: Reports no symptoms Cardiovascular: Reports no symptoms Respiratory: Reports dyspnea; Denies as per HPI, Denies change in phlegm color, Denies chest congestion, Denies cough, Denies hemoptysis, Denies excessive phlegm production, Denies pain on inspiration, Denies pain with cough, Denies dyspnea on exertion, Denies snor ing, Denies stridor, Denies wheezing, Denies other Gastrointestinal: Reports no symptoms Genitourinary: Reports no symptoms Musculoskeletal: Reports no symptoms Integumentary: Reports no symptoms Neurological: Reports no symptoms Psychological: Reports no symptoms Endocrine: Reports no symptoms Hematological/Lymphatic: Reports no symptoms (REYES CHAKRABORTY DO) Physical Exam Related Data Allergies: Coded Allergies: No Known Drug Allergies (Verified Allergy, Mild, 01/06/11) Vital signs reviewed: Yes (REYES CHAKRABORTY DO) Physical Exam CONSTITUTIONAL Constitutional: Present ill appearing HENT HENT: Present normocephalic, Present atraumatic, Present oropharynx clear/moist, Present nose normal HENT L/R: Present left ext ear normal, Present right ext ear normal EYES Eyes: Reports PERRL, Reports conjunctivae normal NECK Neck: Present ROM normal PULMONARY Pulmonary: Present effort normal, Present breath sounds normal CARDIOVASCULAR Cardiovascular: Present heart sounds normal, Present tachycardia GASTROINTESTINAL Abdominal: Present soft, Present nontender, Present bowel sounds normal GENITOURINARY Genitourinary: Present exam deferred SKIN Skin: Present warm, Present dry MUSCULOSKELETAL Musculoskeletal: Present ROM normal NEUROLOGICAL Neurological: Present alert, Present oriented x 3, Present no gross motor or sensory deficits PSYCHOLOGICAL Psychological: Present mood/affect normal, Present judgement normal (REYES CHAKRABORTY DO) Results Laboratory Lab results reviewed: Yes (REYES CHAKRABORTY DO) Imaging Imaging results reviewed: Yes Impressions [place] [id number] Patient Name: PRACHI PAGE MR #: [id number] : 1940 Age/Sex: 80/F Req #: [id number] Adm Physician: CARMENZA CHAKRABORTY MD Ordered by: REYES CHAKRABORTY DO Report #: [id number] Location: [facility] Room/Bed: [place] [address] Procedure: [id number] DX/CHEST SINGLE (PORTABLE) Exam Date: 02/16/20 Exam Time: 409 REPORT STATUS: Signed EXAMINATION: CHEST SINGLE (PORTABLE) INDICATION: ^Y ^DYspnea ^[id number] ^0410 COMPARISON: 06/01/2019 FINDINGS: AP view TUBES and LINES: None. LUNGS: Lungs are well inflated. Central vascular congestion and mild interstitial edema. PLEURA: Small left pleural effusion. No pneumothorax. HEART AND MEDIASTINUM: The cardiomediastinal silhouette is unremarkable. BONES AND SOFT TISSUES: No acute osseous lesion. Soft tissues are unremarkable. UPPER ABDOMEN: No free air under the diaphragm. IMPRESSION: Pulmonary vascular congestion and mild interstitial edema. Small left pleural effusion. Underlying atelectasis/pneumonia cannot be excluded in the appropriate clinical context. Signed by: Dr. Milo Garcia MD on 02/16/2020 5:31 AM Dictated By: MILO GARCIA MD 0 Transcribed By: RADHA on 02/16/20530 COPY TO: REYES CHAKRABORTY DO~ [place] [id number] Patient Name: PRACHI PAGE MR #: [id number] : 1940 Age/Sex: 80/F Req #: [id number] Adm Physician: CARMENZA CHAKRABORTY MD Ordered by: REYES CHAKRABORTY DO Report #: [id number] Location: [facility] Room/Bed: [place] [address] Procedure: [id number] DX/CHEST SINGLE (PORTABLE) Exam Date: 02/16/20 Exam Time: 409 REPORT STATUS: Signed EXAMINATION: CHEST SINGLE (PORTABLE) INDICATION: ^Y ^DYspnea ^[id number] ^0410 COMPARISON: 06/01/2019 FINDINGS: AP view TUBES and LINES: None. LUNGS: Lungs are well inflated. Central vascular congestion and mild interstitial edema. PLEURA: Small left pleural effusion. No pneumothorax. HEART AND MEDIASTINUM: The cardiomediastinal silhouette is unremarkable. BONES AND SOFT TISSUES: No acute osseous lesion. Soft tissues are unremarkable. UPPER ABDOMEN: No free air under the diaphragm. IMPRESSION: Pulmonary vascular congestion and mild interstitial edema. Small left pleural effusion. Underlying atelectasis/pneumonia cannot be excluded in the appropriate clinical context. Signed by: Dr. Milo Garcia MD on 02/16/2020 5:31 AM Dictated By: MILO GARCIA MD 0 Transcribed By: RADHA on 02/16/20530 COPY TO: REYES CHAKRABORTY DO~ (REYES CHAKRABORTY DO) Procedures 12 Lead ECG Interpretation ECG Interpretation : ECG: ECG 1 Custodial Aide: Interpreted by ED physician Date: Feb 16, 2020 Time: 02:35 Prior ECG tracings: reviewed Rhythm: sinus rhythm Rate: normal BPM: 86 QRS axis: normal Conduction: right bundle branch block ST segments normal: Yes T waves normal: Yes Clinical Impression: non-specific ECG (REYES CHAKRABORTY DO) Critical Care Time Total Critical Care Time (min): 65 Critical care time exclusive o: separately billable procedures Critcal care necessary due to: shock Critcal care time spent by me: develop tx plan w patient/surrogate, discussion w consultants, interpret cardiac output measures, evaluation patient response to tx, order/review laboratory studies, pulse oximetry, re-evaluation of patient condition (LONDON TANG DO) Assessment & Plan Medical Decision Making MDM Diff Dx : sepsis, PNA, UTI, covid-19 URI (REYES CHAKRABORTY DO) MDM Concerns of septic shock noted at 0626 with a systolic blood pressure less than 90. Patient has ready gotten broad-spectrum antibiotics, blood cultures obtained, downtrending lactic acid noted. Patient required 30 mL/kg fluid resuscitation. 1 L ready given. Another 1250 mL fluid resuscitation done. Bedside volume reassessment done after fluid bolus with improvement noted. Patient is DNR, we'll speak to family about hospice/palliative care (LONDON TANG DO) Assessment & Plan Final Impression: (1) Person under investigation for COVID-19 (2) Severe sepsis (3) UTI (urinary tract infection) (REYES CHAKRABORTY DO) Depart Disposition: ADMITTED Home Meds Reported Medications Acetaminophen (TYLENOL EXTRA STRENGTH) 500 Mg Tablet, 1000 MG PO Q6H PRN for Mild Pain (1-3) or Fever>100.8 02/16/20 Guaifenesin (MUCINEX) 600 Mg Tablet.er, 1200 MG PO PRN, TAB 02/16/20 Ferrous Sulfate (FERROUS SULFATE) 325 Mg Tablet, 65 MG PO DAILY 02/16/20 Loratadine (LORATADINE) 10 Mg Tablet, 10 MG PO DAILY 02/16/20 Omeprazole (OMEPRAZOLE) 40 Mg Capsule.dr, 40 MG PO DAILY 02/16/20 Metoprolol Tartrate (METOPROLOL TARTRATE) 25 Mg Tablet, 25 MG PO BID 02/16/20 Furosemide (FUROSEMIDE) 40 Mg Tablet, 20 MG PO Daily 02/16/20 Aspirin (ASPIRIN) 81 Mg Tab.chew, 81 MG PO DAILY 02/16/20 Ipratropium/Albuterol Sulfate (IPRAT-ALBUT 0.5-3(2.5) MG/3 ML) 3 Ml Ampul.neb, 0.5 MG INH TID 04/22/19 Calcium Carbonate/Vitamin D3 (CALTRATE-600 WITH VIT D TAB) 1 Each Tablet, 600 MG PO BID 04/22/19 Ipratropium/Albuterol Sulfate (COMBIVENT RESPIMAT INHAL SPRAY) 4 Gm Aer.w.adap, 4 GM IH PRN for SHORTNESS OF BREATH 04/22/19 Levothyroxine Sodium (LEVOTHYROXINE SODIUM) 75 Mcg Tablet, 75 MCG PO DAILY 04/22/19 Simvastatin (SIMVASTATIN) 20 Mg Tablet, 20 MG PO 2100, EA 04/22/19 Gabapentin (Neurontin) 300 Mg Capsule, 300 MG PO BID 01/05/11 Discontinued Reported Medications Loratadine (ALAVERT) 10 Mg Tab.rapdis, 10 MG PO PRN 04/22/19 Estradiol (ESTRACE) 42.5 Gm Cr, 1 EACH TOP DAILY, EACH 04/22/19 Estradiol (ESTRACE) 42.5 Gm Cr, 1 EACH TOP, EACH 04/22/19 Fluticasone/Salmeterol (ADVAIR 250-50 DISKUS) 1 Each Disk.w.dev, 1 MCG INH BID 04/22/19 Tramadol Hcl* (ULTRAM 50MG*) 50 Mg Tab, 50 MG PO BID PRN for PAIN, TAB 04/22/19 REYES CHAKRABORTY DO Feb 16, 2020 02:31 LONDON TANG DO Feb 16, 2020 07:02
[2020-02-16 02:49] LABS: BASOPHILS % 0.4 % (0.0-1.0); EOSINOPHILS % 0.1 % (0.0-6.0); HEMATOCRIT 28.9 % (34.2-44.1); HEMOGLOBIN 8.3 g/dL (12.0-16.0); LYMPHOCYTES # (AUTO) 0.3 (1.0-3.2); LYMPHOCYTES % 2.9 % (18.0-39.1); MEAN CORPUSCULAR HEMOGLOBIN 28.2 pg (28-32); MEAN CORPUSCULAR HGB CONC 28.7 g/dL (31-35); MEAN CORPUSCULAR VOLUME 98.3 fL (81-99); MONOCYTES # (AUTO) 0.8 (0.2-0.8); MONOCYTES % 7.3 % (4.4-11.3); NEUTROPHILS # (AUTO) 9.3 (2.1-6.9); NEUTROPHILS % 88.6 % (38.7-80.0); PLATELET COUNT 145 x10e3/uL (140-360); RED BLOOD COUNT 2.94 x10e6/uL (3.6-5.1); RED CELL DISTRIBUTION WIDTH 15.3 % (11.7-14.4)
[2020-02-16 02:51] LABS: BILIRUBIN,URINE NEGATIVE (NEGATIVE); CLARITY,URINE CLOUDY (CLEAR); COLOR,URINE YELLOW (YELLOW); KETONES,URINE NEGATIVE (NEGATIVE); LEUKOCYTE ESTERASE ,URINE TRACE (NEGATIVE); NITRITE,URINE NEGATIVE (NEGATIVE); PROTEIN,URINE DIPSTICK NEGATIVE (NEGATIVE); URINE UROBILINOGEN 0.2 mg/dL (0.2 - 1)
[2020-02-16 02:57] LABS: BACTERIA,URINE MANY /HPF; EPITHELIAL CELLS,URINE FEW /LPF; RBC,URINE 0-5 /HPF (0-5)
[2020-02-16] MEDS ORDERED: ACETAMINOPHEN 325 MG TAB PO ONE (03:00)
[2020-02-16] MEDS ORDERED: ACETAMINOPHEN 325 MG TAB ONE (03:02)
[2020-02-16] MEDS: PIPER-TAZ 3.375 GM 50 ML IV SCH ×4 (03:06→20:26)
[2020-02-16 03:08] LABS: ALBUMIN 3.5 g/dL (3.5-5.0); ALBUMIN/GLOBULIN RATIO 1.3 (0.8-2.0); ANION GAP 16.1 mmol/L (8-16); CALCIUM 8.8 mg/dL (8.4-10.2); CREATININE, SERUM 1.15 mg/dL (0.57-1.11); POTASSIUM 4.1 mmol/L (3.5-5.1)
[2020-02-16 03:13] LABS: B-TYPE NATRIURETIC PEPTIDE2 204.2 pg/mL (0-100)
--- NOTE | 2020-02-16 05:35 | Diagnostic Imaging Report ---
EXAMINATION: CHEST SINGLE (PORTABLE) INDICATION: ^Y ^DYspnea ^[id number] ^0410 COMPARISON: 06/01/2019 FINDINGS: AP view TUBES and LINES: None. LUNGS: Lungs are well inflated. Central vascular congestion and mild interstitial edema. PLEURA: Small left pleural effusion. No pneumothorax. HEART AND MEDIASTINUM: The cardiomediastinal silhouette is unremarkable. BONES AND SOFT TISSUES: No acute osseous lesion. Soft tissues are unremarkable. UPPER ABDOMEN: No free air under the diaphragm. IMPRESSION: Pulmonary vascular congestion and mild interstitial edema. Small left pleural effusion. Underlying atelectasis/pneumonia cannot be excluded in the appropriate clinical context. Signed by: Dr. Milo Valles MD on 02/16/2020 5:31 AM
[2020-02-16] MEDS ORDERED: ASPIRIN81 MG PO (06:05)
[2020-02-16] MEDS ORDERED: TYLENOL EXTRA500 MG PO (06:05)
[2020-02-16] MEDS ORDERED: FERROUS SULFAT325 MG PO (06:05)
[2020-02-16] MEDS ORDERED: FUROSEMIDE40 MG PO (06:05)
[2020-02-16] MEDS ORDERED: LORATADINE10 MG PO (06:05)
[2020-02-16] MEDS ORDERED: MUCINEX600 MG PO (06:05)
[2020-02-16] MEDS ORDERED: METOPROLOL TART25 MG PO (06:05)
[2020-02-16] MEDS ORDERED: OMEPRAZOLE40 MG PO (06:05)
[2020-02-16] MEDS ORDERED: SODIUM CHLORIDE 0.9% 250ML 250 ML IV ONE (06:45)
[2020-02-16] MEDS ORDERED: SODIUM CHLORIDE 0.9% 1000ML 1,000 ML IV SCH (06:45)
--- NOTE | 2020-02-16 07:00 | NUR ---
PATIENT BUTTOCKS CLEANED, CHANGED DRAW SHEET. PLACED PUREWICK ON PATIENT AND HOOKED TO SUCTION PATIENT HAS NS@100CC/HR ALONG WITH 1250CC LITERS FLUID R/AC 18 GUAGE, L/AC 20 GUAGE, LEFT HAND 20 GUAGE. PATENT, INFUSING. DENIES ANY PAIN AT SITE.
--- NOTE | 2020-02-16 07:03 | NUR ---
HANDOFF REPORT TO CASH BLAKE AT PATIENT BEDSIDE; ALL QUESTIONS ANSWERED, PT W/O C/O AT THIS TIME, NAD; UPDATED PT ON POC.
--- NOTE | 2020-02-16 07:30 | NUR ---
PATIENT SITTING UP IN BED, DOES NOT WANT TO EAT BREAKFAST ONLY WANTS COFFEE
--- NOTE | 2020-02-16 09:36 | NUR ---
2ND SET OF CARDIAC ENZYMES TO BE COMPLETED
[2020-02-16 11:08] LABS: CREATINE KINASE MB 2.1 ng/mL (0-5.0)
[2020-02-16] MEDS ORDERED: ONDANSETRON HCL INJ 2MG/ML 2ML 2 MG/ML VIAL IV PRN (11:15)
[2020-02-16] MEDS ORDERED: DEXTROSE 50% SYRINGE 50 ML IV PRN (11:15)
[2020-02-16] MEDS ORDERED: IPRATROPIUM/ALBUTEROL SULFATE 4 GM INH INH PRN (11:15)
[2020-02-16] MEDS ORDERED: ACETAMINOPHEN 325 MG TAB PO PRN (11:15)
[2020-02-16] MEDS: INSULIN LISPRO 100 UNIT/1 ML 3ML VIAL SQ SCH ×3 (11:30→20:44)
[2020-02-16 12:05] LABS: THYROID STIMULATING HORMONE 0.715 uIU/mL (0.350-4.940)
[2020-02-16] MEDS: ENOXAPARIN 30 MG/0.3 ML SYR SC SCH ×2 (12:59→20:27)
[2020-02-16] MEDS: AZITHROMYCIN 500MG/NS 250 ML 250 ML IV SCH (12:59)
[2020-02-16] MEDS: ZINC SULFATE 220 MG CAP PO SCH (12:59)
[2020-02-16] MEDS: FAMOTIDINE 20 MG TAB PO SCH ×2 (12:59→15:38)
[2020-02-16] MEDS: ASCORBIC ACID 500 MG TAB PO SCH ×2 (12:59→16:13)
[2020-02-16] MEDS: DEXAMETHASONE SOD PHOS INJ 4 MG/ML VIAL IV SCH (12:59)
--- NOTE | 2020-02-16 14:06 | History and Physical ---
PRIMARY CARE PHYSICIAN: Horace Odell MD. CONSULTANTS: 1. Dr. Gladis Webster. 2. Dr. Tony Infante. CHIEF COMPLAINT: Altered mental status. Urinary tract infection. Possible sepsis. PUI. HISTORY: The patient is an 80-year-old female brought by EMS for evaluation of altered mental status, lethargy after dinner. EMS noticed that the patient had a fever of 102. The patient has no COVID-19 exposure, but history is unreliable at this time. The patient had a urinary tract infection. Blood pressure was low. The patient was given bolus IV fluids. Lactic acid level was elevated on admission at 3.2, now down to 1.7. Blood sugars in the 169. The patient also has a BNP of 204; however, the chest x-ray show possible vascular congestion with interstitial edema with possible atelectasis and pneumonia. CT of the chest without contrast ordered, but still pending. LABORATORY: The patient's WBC of 10 with a left shift of 88.6%. The patient initiated on Zosyn, add on azithromycin. The patient is pending for further evaluation. Her serology test, the influenza type A and B was negative, but the COVID-19 PCR is still pending. Urinalysis showed cloudy urine with WBC of 20 and many bacteria. Microbiology is still pending at this time. 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 COPD, hypertension, atrial fibrillation, chronic asthma, hypothyroidism, coronary disease, history of NM, TIA, CVA, diabetes type 2, dyslipidemia and liver cirrhosis. PAST SURGICAL HISTORY: Cholecystectomy, tubal ligation, and duodenal AVM treatment. PAST SOCIAL HISTORY: Patient lives at home. She does not smoke or use alcohol. No regular drug. ALLERGIES: NO KNOWN ALLERGIES. HOME MEDICATIONS: List including Tylenol, aspirin, ferrous sulfate, Lasix, Neurontin, Mucinex, albuterol, levothyroxine, loratadine, metoprolol tartrate, omeprazole, and simvastatin. PHYSICAL EXAMINATION: VITAL SIGNS: T-max was 102, blood pressure 130/67, pulse rate 96, respirations 26. GENERAL: The patient is not in acute distress. She is awake, but is little confused. HEENT: Normocephalic, atraumatic. Anicteric. NECK: Supple grossly. PULMONARY: Diminished breath sounds. CARDIOVASCULAR: S1, S2. Regular rate and rhythm. ABDOMEN: Soft. EXTREMITIES: No cyanosis or edema. NEUROLOGIC: Confused, moving all extremities without any focal deficit. LABORATORY: Urine, cloudy urine with wbc of 20 and bacteria many. Chest x-ray showing vascular congestion, could be underlying atelectasis versus pneumonia. Sodium is 146, potassium 4.1, chloride 104, bicarb 30, BUN is 24, creatinine 1.1, glucose 199. WBC is 10.5, hemoglobin 8.3, hematocrit 28.9, and platelets are 145. IMPRESSION: 1. PUI. 2. Possible pneumonia. 3. Urinary tract infection. 4. Sepsis without shock, most likely from multiple factors as stated above. 5. Fever as the above. PLAN: Zosyn and azithromycin. Decadron. Consult Infectious Disease and business data analyst. Home medication resumed. Insulin sliding scale coverage. ADA diet as tolerated. CT of the chest without contrast. Stop the IV fluids. Medication for nausea and vomiting, Tylenol, home medication resumed. Watch blood pressure. Repeat lab work in the morning. We will monitor the patient closely at this time. MD MARTIN Mtz/RHONDAL /[id number]
--- NOTE | 2020-02-16 14:35 | Diagnostic Imaging Report ---
CT of the chest. Comparison: 06/01/2019 Clinical History: Shortness of breath. Possible pneumonia. Possible congestive heart failure. Technique: Helical CT scan of the chest was performed from just above the thoracic inlet through the adrenal glands. Intravenous contrast administration was not utilized. Coronal and sagittal reconstructions were generated from the raw data. Multiple images were submitted for interpretation. This exam was performed according to our departmental dose-optimization program which includes automated exposure control, adjustment of the mA and/or kV according to patient size Discussion: Lung li: There is presence of mild bronchial wall thickening involving the right middle lobe. There is a patch of opacity with air bronchogram involving the medial right middle lobe. This could represent atelectasis and/or pneumonia. This has improved compared with the previous exam and might represent chronic changes. There is also subsegmental atelectasis in the right upper lobe along the course of the major fissure. No other focal lung or airway disease visualized. No lung nodules. Central airways: Unremarkable Pleural spaces and pleura: No pleural effusion, pneumothorax or pleural plaques. Pulmonary mercy: Normal Mediastinum: Unremarkable Cardiac chambers, pericardium and great vessels: Cardiomegaly. Coronary artery calcification. Aortic and mitral annulus calcification. The ascending aorta measures 45 mm. This is aneurysmal. The pulmonary artery measures 37 mm across at the same level. This is also dilated. The descending thoracic aorta at the same level measures 32 mm. This is also considered enlarged. Thyroid: Unremarkable Lymph nodes: No lymphadenopathy Azygos vein: Unremarkable The esophagus: The esophagus is thick walled especially close to the GE junction. Presence of esophageal bases is not ruled out. Thoracic duct: Unremarkable Osseous structures: Osteopenia and accentuated kyphosis of the thoracic spine Upper abdomen: The liver has a cirrhotic morphology. The spleen is borderline enlarged. There is presence of a large number of vessels in the gastrohepatic ligament that raises the possibility of gastric varices. Please see above regarding esophagus also. Body wall: Unremarkable Breasts: There is an approximately 2.8 x 2.2 cm mass with irregular borders and calcifications in the right breast. It was seen on the previous CT also. This requires correlation with mammography or further evaluation. Axilla: Unremarkable Lower neck: Grossly unremarkable. Impression: Minimal bronchial wall thickening along with a patch of atelectasis and/or consolidation in the right middle lobe as described above which has improved compared with the previous CT in May of this CT or. This could represent chronic process. Clinical correlation is required. No other focal lung disease of significance. Cirrhotic liver with suggestion of portal hypertension. A contrast-enhanced abdominal CT. Performed for further evaluation Right breast mass as described above with recommendations for further evaluation as above. Signed by: Rick Putnam MD on 02/16/2020 2:31 PM
[2020-02-16] MEDS: BENZONATATE 100 MG CAP PO SCH ×2 (15:38→20:27)
[2020-02-16] MEDS: IPRATROPIUM/ALBUTEROL SULFATE 4 GM INH INH SCH (19:00)
--- NOTE | 2020-02-16 19:38 | NUR ---
PT RESTING IN BED COMFORTABLY NO SIGNS OF DISTRESS NO COMPLAINTS AT THIS TIME
--- NOTE | 2020-02-16 20:38 | Consultation ---
DATE OF CONSULTATION: HISTORY OF PRESENT ILLNESS: Ms. Valerie Pedersen is an 80-year-old, who has history of COPD, she was at home at 4 L of oxygen. Apparently, her son found her naked, confused. The patient was brought here. She was given IV fluid with IV antibiotic. She is currently alert and oriented. She remains forgetful, but she is alert and oriented. She is feeling better. She did have fever when she first came. Also, her lactic acid was elevated at 3.2. The patient is currently in bed, comfortable. The patient is telling me she has history of COPD, history of allergic rhinitis, and also history of diabetes. PAST MEDICAL HISTORY: Severe COPD on 4 L, obesity, and the patient seemed to be forgetful. PAST SURGICAL HISTORY: She denies. ALLERGIES: NKA. SOCIAL HISTORY: She denies smoking, drug abuse, or alcohol abuse. FAMILY HISTORY: Noncontributory. LABORATORY DATA: The patient, who had CAT scan of the chest, report reviewed. The Radiology also report she was also found to have liver cirrhosis with portal hypertension. There is no urinalysis. Influenza was negative. COVID is still pending. White count 10, hemoglobin 8.3, and platelet 145. Sodium 146, potassium 4.1, creatinine 1.15, and glucose 199. PHYSICAL EXAMINATION: GENERAL: Currently alert and oriented. Does not seem to be in acute distress. VITAL SIGNS: Stable, currently afebrile. HEENT: She is not icteric. NECK: Supple. CHEST: Crackles bilateral. HEART: S1 and S2. ABDOMEN: Soft. Bowel sounds present. EXTREMITIES: No edema. SKIN: No rash. NEURO: . IMPRESSION: Sepsis on admission, seems to be better; altered mental status secondary to sepsis, concerned about pneumonia, concerned about urinary tract infection versus other; hypernatremia; acute kidney injury; diabetes mellitus; liver cirrhosis; component of acute congestive heart failure; chronic obstructive pulmonary disease exacerbation, concerned about community-acquired pneumonia. RECOMMENDATIONS: She is currently on Zosyn. We will adjust for kidney function. She is on dexamethasone, which we can use for her COPD and azithromycin agree. We will give her azithromycin for 3 to 5 days. Obtain urine cultures. COVID has been sent. Supportive care. Adjust for kidney function. Gentle diuresis. We will follow. MD MARIA VICTORIA Simpson/KEIRY /[id number]
[2020-02-16 21:10] LABS: CREATINE KINASE MB 4.7 ng/mL (0-5.0)
--- NOTE | 2020-02-16 22:58 | Consultation ---
DATE OF CONSULTATION: Pulmonary Consultation HISTORY OF PRESENT ILLNESS: An 80-year-old woman admitted with altered mental status from home, brought in by son. Temperature as high as 102. PAST MEDICAL HISTORY: History of severe COPD, atrial fibrillation, diabetes, cirrhosis, duodenal AVMs, and chronic anemia. ALLERGIES: NO KNOWN ALLERGIES. MEDICATIONS: Included aspirin, iron, Neurontin, Lasix, DuoNeb, Levoxyl, metoprolol, omeprazole, Zocor, zyrtec, and home oxygen at 4 L. SOCIAL HISTORY: She has smoked for over 60 years. She had gallbladder surgery, tubal ligation. She was born in [place], [place]. FAMILY HISTORY: Positive for cancer of the skin and pancreatitis. PHYSICAL EXAMINATION: GENERAL: She is a well-developed white female, eating her supper. VITAL SIGNS: Temperature 102 on admission, now 98.2, pulse 97, respirations 23, blood pressure 155/93. HEAD: Normocephalic and atraumatic. EYES: Extraocular movements are intact. LUNGS: Diminished breath sounds. HEART: Regular rhythm. ABDOMEN: Nontender. EXTREMITIES: Nonedematous. ASSESSMENT: Mass in the right breast. PLAN: Optimize bronchodilators, empiric antibiotics. Evaluation of anemia, presumably iron deficiency. Urinary tract infection and there is a minimal pyuria. Check serum iron. White count is about 20. Continue bronchodilators. Zyrtec for her nasal congestion. Thank you for this kind referral. MD BI Diallo/MODL /[id number]
--- NOTE | 2020-02-16 23:39 | NUR ---
PT RESTING IN BED COMFORTABLY NO SIGNS OF DISTRESS NO COMPLAINTS AT THIS TIME
[2020-02-17] VITALS (7 sets, daily range): BP systolic 132–148; BP diastolic 62–86
[2020-02-17] MEDS: IPRATROPIUM/ALBUTEROL SULFATE 4 GM INH INH SCH ×4 (01:00→19:00)
[2020-02-17] MEDS: PIPER-TAZ 3.375 GM 50 ML IV SCH ×4 (02:30→21:23)
[2020-02-17 04:59] LABS: BASOPHILS % 0.3 % (0.0-1.0); HEMATOCRIT 26.6 % (34.2-44.1); HEMOGLOBIN 7.4 g/dL (12.0-16.0); LYMPHOCYTES # (AUTO) 0.4 (1.0-3.2); LYMPHOCYTES % 10.3 % (18.0-39.1); MEAN CORPUSCULAR HEMOGLOBIN 27.7 pg (28-32); MEAN CORPUSCULAR HGB CONC 27.8 g/dL (31-35); MEAN CORPUSCULAR VOLUME 99.6 fL (81-99); MONOCYTES # (AUTO) 0.2 (0.2-0.8); MONOCYTES % 5.5 % (4.4-11.3); NEUTROPHILS # (AUTO) 3.3 (2.1-6.9); NEUTROPHILS % 83.4 % (38.7-80.0); PLATELET COUNT 106 x10e3/uL (140-360); RED BLOOD COUNT 2.67 x10e6/uL (3.6-5.1); RED CELL DISTRIBUTION WIDTH 15.5 % (11.7-14.4)
[2020-02-17 05:20] LABS: ALBUMIN 3.1 g/dL (3.5-5.0); ALBUMIN/GLOBULIN RATIO 1.1 (0.8-2.0); ANION GAP 11.5 mmol/L (8-16); CALCIUM 8.5 mg/dL (8.4-10.2); CREATININE, SERUM 0.9 mg/dL (0.57-1.11); POTASSIUM 4.5 mmol/L (3.5-5.1)
[2020-02-17 05:41] LABS: MAGNESIUM 1.9 MG/DL (1.3-2.1); PHOSPHORUS 2.9 MG/DL (2.3-4.7)
--- NOTE | 2020-02-17 06:14 | NUR ---
PT RESTING IN BED COMFORTABLY NO SIGNS OF DISTRESS NO COMPLAINTS AT THIS TIME
[2020-02-17] MEDS: INSULIN LISPRO 100 UNIT/1 ML 3ML VIAL SQ SCH ×4 (07:30→21:36)
[2020-02-17] MEDS: BENZONATATE 100 MG CAP PO SCH ×3 (08:58→21:23)
[2020-02-17] MEDS: ASCORBIC ACID 500 MG TAB PO SCH ×2 (08:58→17:08)
[2020-02-17] MEDS: FAMOTIDINE 20 MG TAB PO SCH ×2 (08:58→16:31)
[2020-02-17] MEDS: DEXAMETHASONE SOD PHOS INJ 4 MG/ML VIAL IV SCH (08:58)
[2020-02-17] MEDS: ZINC SULFATE 220 MG CAP PO SCH (08:58)
[2020-02-17] MEDS ORDERED: FUROSEMIDE INJ 10 MG/ML 2 ML VIAL IV PRN (09:00)
[2020-02-17] MEDS ORDERED: SODIUM CHLORIDE 0.9% 250ML 250 ML IV SCH (09:00)
--- NOTE | 2020-02-17 09:36 | Diagnostic Imaging Report ---
EXAMINATION: CHEST SINGLE (PORTABLE) INDICATION: Cough COMPARISON: Chest radiograph and chest CT of 02/16/2020 FINDINGS: LINES/TUBES:EKG leads overlie the chest. LUNGS:The lungs are well-inflated. No focal consolidation or pulmonary edema. Mild right basilar subsegmental atelectasis. PLEURA:No pleural effusion or pneumothorax. MEDIASTINUM:The cardiomediastinal silhouette appears normal in size and shape. BONES/SOFT TISSUES:No acute osseous injury. ABDOMEN:No free air under the diaphragm. IMPRESSION: Mild right basilar subsegmental atelectasis. No focal consolidation. Signed by: Janet Núñez MD on 02/17/2020 9:32 AM
[2020-02-17] MEDS: AZITHROMYCIN 500MG/NS 250 ML 250 ML IV SCH (12:42)
--- NOTE | 2020-02-17 15:33 | NUR ---
INFECTIOUS DISEASE PROGRESS NOTE DR. DEMIAN MEDINA HISTORY OF PRESENT ILLNESS: Ms. Valerie Pedersen is an 80-year-old, who has history of COPD, she was at home at 4 L of oxygen. Apparently, her son found her naked, confused. The patient was brought here. She was given IV fluid with IV antibiotic. She is currently alert and oriented. She remains forgetful, but she is alert and oriented. She is feeling better. She did have fever when she first came. Also, her lactic acid was elevated at 3.2. The patient is currently in bed, comfortable. The patient is telling me she has history of COPD, history of allergic rhinitis, and also history of diabetes. PAST MEDICAL HISTORY: Severe COPD on 4 L, obesity, and the patient seemed to be forgetful. ALLERGIES: NKA. LABORATORY DATA: per chart PHYSICAL EXAMINATION: GENERAL: Currently alert and oriented. Does not seem to be in acute distress. VITAL SIGNS: Stable, currently afebrile. HEENT: She is not icteric. NECK: Supple. no JVD CHEST: Crackles bilateral. HEART: S1 and S2. ABDOMEN: Soft. Bowel sounds present. EXTREMITIES: No edema. SKIN: No rash. NEURO: no large neuro deficits IMPRESSION: Sepsis on admission, seems to be better altered mental status secondary to sepsis pneumonia, urinary tract infection hypernatremia; acute kidney injury; diabetes mellitus; liver cirrhosis; congestive heart failure; chronic obstructive pulmonary disease exacerbation, RECOMMENDATIONS: She is currently on Zosyn. We will adjust for kidney function. She is on dexamethasone, which we can use for her COPD and azithromycin agree. We will give her azithromycin for 3 to 5 days. Demian Medina M.D
--- NOTE | 2020-02-17 18:48 | Progress Note ---
DATE: SUBJECTIVE: Ms. Pedersen is doing better. Resting in bed. Vitals stable, currently afebrile. There are no new complaints. Temperature 97.7, heart rate 95, respiration 18, and blood pressure 139/69. The patient, who remains on Zosyn, azithromycin, and dexamethasone. She is on 4 L, which is her baseline at the house. Blood cultures negative. Urine culture is still pending. PHYSICAL EXAMINATION: GENERAL: She is currently alert. VITAL SIGNS: Stable, currently afebrile. HEENT: Not icteric. NECK: Supple. CHEST: Crackles. HEART: S1 and S2. ABDOMEN: Soft. IMPRESSION: Chronic obstructive pulmonary disease exacerbation, probably pneumonia COVID-19. PLAN: To continue with antibiotic as ordered, steroid as ordered. We will follow. MD MARIA VICTORIA Simpson/KEIRY /[id number]
[2020-02-17] MEDS ORDERED: LASIX20 MG PO (19:17)
[2020-02-17] MEDS: LORATADINE 10 MG TAB PO PRN (21:23)
[2020-02-18] VITALS (10 sets, daily range): BP systolic 134–153; BP diastolic 63–78
[2020-02-18] MEDS: IPRATROPIUM/ALBUTEROL SULFATE 4 GM INH INH SCH ×4 (01:00→19:00)
[2020-02-18] MEDS: PIPER-TAZ 3.375 GM 50 ML IV SCH ×4 (02:30→19:53)
[2020-02-18 06:17] LABS: BASOPHILS % 0.2 % (0.0-1.0); HEMATOCRIT 26.7 % (34.2-44.1); HEMOGLOBIN 7.5 g/dL (12.0-16.0); LYMPHOCYTES # (AUTO) 0.8 (1.0-3.2); LYMPHOCYTES % 14.1 % (18.0-39.1); MEAN CORPUSCULAR HEMOGLOBIN 28.3 pg (28-32); MEAN CORPUSCULAR HGB CONC 28.1 g/dL (31-35); MEAN CORPUSCULAR VOLUME 100.8 fL (81-99); MONOCYTES # (AUTO) 0.4 (0.2-0.8); MONOCYTES % 6.9 % (4.4-11.3); NEUTROPHILS # (AUTO) 4.4 (2.1-6.9); NEUTROPHILS % 78.3 % (38.7-80.0); PLATELET COUNT 129 x10e3/uL (140-360); RED BLOOD COUNT 2.65 x10e6/uL (3.6-5.1); RED CELL DISTRIBUTION WIDTH 14.9 % (11.7-14.4)
[2020-02-18 06:49] LABS: ANION GAP 11.4 mmol/L (8-16); BLOOD UREA NITROGEN 20 mg/dL (7-26); BUN/CREATININE RATIO 24 (6-25); CALCIUM 8.6 mg/dL (8.4-10.2); CARBON DIOXIDE 31 mmol/L (22-29); CHLORIDE 108 mmol/L (98-107); CREATININE, SERUM 0.84 mg/dL (0.57-1.11); EST GLOMERULAR FILTRATION RATE > 60 ML/MIN (60-); GLUCOSE 132 mg/dL (74-118); POTASSIUM 4.4 mmol/L (3.5-5.1); SODIUM 146 mmol/L (136-145)
[2020-02-18] MEDS: ZINC SULFATE 220 MG CAP PO SCH (08:23)
[2020-02-18] MEDS: FAMOTIDINE 20 MG TAB PO SCH ×2 (08:23→15:48)
[2020-02-18] MEDS: ASCORBIC ACID 500 MG TAB PO SCH ×2 (08:23→16:48)
[2020-02-18] MEDS: DEXAMETHASONE SOD PHOS INJ 4 MG/ML VIAL IV SCH (08:23)
[2020-02-18] MEDS: BENZONATATE 100 MG CAP PO SCH ×3 (08:23→21:23)
[2020-02-18] MEDS: INSULIN LISPRO 100 UNIT/1 ML 3ML VIAL SQ SCH ×4 (10:13→21:23)
--- NOTE | 2020-02-18 11:00 | NUR ---
Became sob, O2 sats remain in the high 90's on O2 4 liters. Patient states she can not feel air. After several minutes, she became calm and able to breath easily again. Called [facility] to attempt to restart IVs
[2020-02-18] MEDS ORDERED: IRON SUCROSE 100 MG in SODIUM CHLORIDE 0.9% 100 ML 100 ML IV SCH (11:30)
--- NOTE | 2020-02-18 11:43 | Progress Note ---
DATE: SUBJECTIVE: Ms. Pedersen remains short of breath, comfortable. She is on 4 L. PHYSICAL EXAMINATION: GENERAL: She is currently alert. VITAL SIGNS: Stable. HEENT: Not pale. Not icteric. NECK: Supple. CHEST: Few crackles at the bases. HEART: S1 and S2. ABDOMEN: Soft. Bowel sounds present. EXTREMITIES: No edema. SKIN: No rash. IMPRESSION: Bronchitis/pneumonia, community-acquired, concerned aspiration, chronic obstructive pulmonary disease exacerbation, anemia of chronic disease, anxiety, diabetes mellitus. Stable from Infectious Disease point of view. To finish 5 days of current choice of antibiotic and steroid. Oxygen as needed. We will follow. MD MARIA VICTORIA Simpson/KEIRY /[id number]
[2020-02-18] MEDS: AZITHROMYCIN 500MG/NS 250 ML 250 ML IV SCH (11:53)
--- NOTE | 2020-02-18 13:00 | NUR ---
Blood bank states her blood is [place] if the MD yang wants to transfuse they need to send it and give it w/in [address] Mcfarlane notified. He consulted Dr. Snyder, hematology
--- NOTE | 2020-02-18 16:00 | NUR ---
Dr. Snyder ordered to only transfuse 1 unit of the blood fluid. Blood bank notified
[2020-02-18] MEDS: FLUTICASONE PROPIONATE NASAL SPRAY NS SCH (16:48)
--- OUTSIDE RECORDS SUMMARY | 2020-02-18 18:59 | XMS REPORT | Continuity of Care Document ---
Author Author [facility] t Organization [facility] Address [facility] [place] [address] Phone Unavailable Care Team Providers Care Interstate Bus Dispatcher Name Role Phone MCKAYLA FRITZ MD PCP CARMENZA CHAKRABORTY Attphys Unavailable CARMENZA CHAKRABORTY Admphys Unavailable Payers Payer Name Policy Type Policy Number Effective Date Expiration Date Brenna jaramillo [facility] [id number] 2019 00:00:00 [facility] [id number] 2019 00:00:00 [facility] Problems Condition Name Condition Details Condition Category Status Onset Date Resolution Date Last Treatment Date Treating Clinician Comments Source Acute exacerbation of chronic obstructive pulmonary disease COPD exacerbation Problem Active [facility] Hypoxia Hypoxia Problem Active [facility] Hypertension Hype rtension Active 05/21/2013 [facility] Active 2013-05-21 23:01:44 Spencer Thomas Type 2 Diabetes Mellitus Type 2 Diabetes Mellitus Active 05/21/2013 [facility] Problem Active 2013-05-21 23:01: 44 Fiona Thomas Hypercholesterolemia Hype rcholesterolemia Active 05/21/2013 [facility] Problem Active 2013-05-21 23:01:44 Fiona Thomas Chronic Obstructive Pulmonary Disease Chronic Obstructive Pulmonary Disease Active 05/21/2013 [facility] Problem Active 2013-05-21 23:01:44 Fiona Thomas Hypothyroidism Hypo thyroidism Active 05/21/2013 [facility] Problem Active 2013-05-21 23:01:44 Melvin Thomas Acute Upper Respiratory Infection Acute Upper Respiratory Infection Active 05/21/2013 [facility] Problem Active 2013-05-21 23:01:44 Fiona Thomas Acute Bronchitis Acut e Bronchitis Active 05/21/2013 [facility] Problem Active 2013-05-21 23:01:44 M sunitha Adamesann Venous Insufficiency Veno us Insufficiency Active 05/21/2013 [facility] Problem Active 2013-05-21 23:01:44 Fiona Thomas Allergies, Adverse Reactions, Alerts Allergy Name Allergy Type Status Severity Reaction(s) Onset Date Inacti ve Date Treating Clinician Comments Source No Known Drug Allergies No Known Drug Allergies Active Fiona Thomas Family History Family Member Diagnosis Comments Start Date Stop Date Source Unknown Family Member Family History 2012-11-18 06:52:27 2 06:52:27 Fiona Thomas Social History Social Habit Start Date Stop Date Quantity Comments Source Social History 2013-05-21 23:01:44 2013-05-21 23:01:44 Fiona Thomas Medications Ordered Medication Name Filled Medication Name Start Date Stop Da te Current Medication? Ordering Clinician Indication Dosage Frequency Signature (SIG) Comments Components Source Tylenol Extra Strength 500 MG Oral Tablet 2013-05-21 23:01:44 Yes (Active) Fiona Thomas TraMADol HCl 50 MG Oral Tablet 2013-05-21 23:01:44 Yes (Active) Fiona Thomas Fish Oil 1200 MG Oral Capsule 2013-05-21 23:01:44 Yes (Active) Fiona Thomas Alavert 10 MG Oral Tablet 2013-05-21 23:01:44 Yes (Active) Fiona Thomas Calcium 600/Vitamin D TABS 2013-05-21 23:01:44 Yes (Active) Fiona Thomas Case Contour Test STRP 2013-05-21 23:01:44 Yes (Active) Fiona Thomas Combivent 18-103 MCG/ACT AERO 2013-05-21 23:01:44 Yes (Active) Fiona Thomas Albuterol Sulfate NEBU 2013-05-21 23:01:44 Yes (Active) Fiona Thomas Gabapentin 300 MG Oral Capsule 2013-05-20 06:00:00 Yes ; Start Date: 05/20/2013; End Date: (Active) Fiona Thomas Bromfed DM 30-2-10 MG/5ML Oral Syrup 2013-05-20 06:00:00 Ye s ; Start Date: 05/20/2013; End Date: (Active) Fiona Thomas Combivent 18-103 MCG/ACT Inhalation Aerosol 2013-04-18 18:45:07 Yes (Active) Fiona Thomas Bromfed DM 30-2-10 MG/5ML Oral Syrup 2013-04-18 06:00:00 Ye s ; Start Date: 04/18/2013; End Date: 05/18/2013 (Active) Fiona Thomas Advair Diskus 250-50 MCG/DOSE Inhalation Aerosol Powder Nelia th Activated 2013-04-18 06:00:00 Yes ; Start Date: 04/18/2013; End Date: (Active) Fiona Thomas Azithromycin 250 MG Oral Tablet 2013-04-18 06:00:00 Yes ; Start Date: 04/18/2013; End Date: 04/23/2013 (Active) Fiona Thomas MetFORMIN HCl ER 500 MG Oral Tablet Extended Release 24 Hour 2013-04-02 14:56:09 Yes (Active) Monserrat Thomas Advair Diskus 250-50 MCG/DOSE Inhalation Aerosol Powder Nelia th Activated 2013-04-02 14:56:09 Yes (Active) Fiona Adamesann MetFORMIN HCl 500 MG Oral Tablet 2013-04-02 06:00:00 Yes ; Start Date: 04/02/2013; End Date: (Active) Fiona Adamesann Cefuroxime Axetil 500 MG Oral Tablet 2013-04-01 06:00:00 Ye s ; Start Date: 04/01/2013; End Date: (Active) Fiona Adamesann Simvastatin 40 MG Oral Tablet 2013-03-24 16:03:51 Yes (Active) Fiona Adamesann Gabapentin 300 MG Oral Capsule 2013-03-24 06:00:00 Yes ; Start Date: 03/24/2013; End Date: (Active) Fiona Adamesann Levofloxacin 500 MG Oral Tablet 2013-03-18 06:00:00 Yes ; Start Date: 03/18/2013 (Active) Fiona Adamesa nn Mucinex DM 30-600 MG Oral Tablet Extended Release 12 Hour 2013-03-18 06:00:00 Yes ; Start Date: 03/18/2013 (Active ) Fiona Adamesann PredniSONE 10 MG Oral Tablet 2013-03-18 06:00:00 Yes ; Start Date: 03/18/2013 (Active) Fiona Adamesann Gabapentin 300 MG TABS 2013 19:03:17 Yes (Active) Fiona Adamesann Lisinopril 5 MG Oral Tablet 2013 19:03:17 Yes (Active) Fiona Thomas Estrace 0.1 MG/GM Vaginal Cream 2013 19:03:17 Yes (Active) Fiona Thomas Levothyroxine Sodium 75 MCG Oral Tablet 2013 05:00:00 Yes ; Start Date: 2013; End Date: (Active) Fiona Thomas Levothyroxine Sodium 75 MCG Oral Tablet 2012-11-18 06:52:27 Yes (Active) Fiona Thomas Fenofibrate 200 MG CAPS 2012-11-18 06:52:27 Yes (Active) Fiona Thomas Aspirin 81 MG Oral Tablet 2012-04-02 06:00:00 Yes ; Start Date: 04/02/2012 (Active) Fiona hTomas Lisinopril 5 MG Oral Tablet Yes ; Start Date: ; End Date: (Active) Fiona Thomas Fenofibrate Micronized 200 MG Oral Capsule Yes ; Start Date: ; End Date: (Active) Fiona Thomas Simvastatin 40 MG Oral Tablet Yes ; Start Date: ; End Date: (Active) Fiona Thomas Calcium Carbonate/Vitamin D3 (Caltrate-600 With Vit D Tab) 1 Each Tablet Calcium Carbonate/Vitamin D3 (Caltrate-600 With Vit D Tab) 1 Each Tablet Yes 600 Twice A Day [facility] Estradiol (Estrace) 42.5 Gm Cr Estradiol (Estrace) 42.5 Gm Cr Yes 1 [facility] Estradiol (Estrace) 42.5 Gm Cr Estradiol (Estrace) 42.5 Gm Cr Yes 1 Daily [facility] Fluticasone/Salmeterol (Advair 250-50 Diskus) 1 Each D isk.w.dev Fluticasone/Salmeterol (Advair 250-50 Diskus) 1 Each Disk.w.dev Yes 1 Twice A Day [facility] Gabapentin (Neurontin) 300 Mg Capsule Gabapentin (Neurontin) 300 Mg Capsule Yes Twice A Day [facility] Ipratropium/Albuterol Sulfate (Iprat-Albut 0.5-3(2.5) Mg/3 Ml) 3 Ml Ampul.neb Ipratropium/Albuterol Sulfate (Iprat-Albut 0.5-3(2.5) Mg/3 Ml) 3 Ml Ampul.neb Yes .5 Three Times A Day [facility] Ipratropium/Albuterol Sulfate (Combivent Respimat Inha l [place]) 4 Gm Aer.w.adap Ipratropium/Albuterol Sulfate (Combivent Respimat Inhal [place]) 4 Gm Aer.w.adap Yes 4 as needed for Prn [facility] Levothyroxine Sodium 75 Mcg Tablet Levothyroxine Sodium 75 Mcg Tablet Yes 75 Daily [facility] Loratadine (Alavert) 10 Mg Tab.rapdis Loratadine (Alavert) 10 Mg Ta b.rapdis Yes 10 As Needed [facility] Simvastatin 20 Mg Tablet Simvastatin 20 Mg Tablet Yes 20 Today At 9:00PM [facility] Tramadol Hcl (Ultram 50MG*) 50 Mg Tab Tramadol Hcl (Ultram 50MG*) 5 0 Mg Tab Yes 50 Twice A Day as needed for Pain [facility] Clopidogrel Bisulfate (Clopidogrel) 75 Mg Tablet, 75 M g Oral Clopidogrel Bisulfate (Clopidogrel) 75 Mg Tablet, 75 Mg Oral 2019-04-30 00:00:00 No 75 Daily [facility] Fenofibrate,Micronized (Fenofibrate) 200 Mg Capsule, F enofibrate,Micronized (Fenofibrate) 200 Mg Capsule, 2019-04-30 00:00:00 No Bedtime [facility] Lisinopril 5 Mg Tablet, Lisinopril 5 Mg Tablet, 2019-04-30 00:00 :00 No Daily [facility] Metformin Hcl 500 Mg Tablet, Metformin Hcl 500 Mg Tablet, 2019-04-30 00:00:00 No Twice A Day [facility] [place]-3 Fatty Acids/Fish Oil (Fish Oil 1,200 Mg Softge l) 1 Each Capsule, [place]-3 Fatty Acids/Fish Oil (Fish Oil 1,200 Mg Softgel) 1 Each Capsule, 2019-04-30 00:00:00 No Daily [facility] Simvastatin (Zocor) 40 Mg Tablet, Simvastatin (Zocor) 40 Mg Tabl et, 2019-04-22 00:00:00 No Bedtime [facility] Procedures Procedure Date / Time Performed Performing Clinician Sour e Computed tomography of chest with contrast 2019-06-01 00:00:00 Jhonatan WINTERS [facility] EGD with biopsy 2019-05-29 00:00:00 LEÓN MEJIA [facility] CT of abdomen and pelvis without contrast 2019-04-23 00:00:00 STEVAN LOONEY [facility] INSERTION OF INFUSION DEV INTO SUP VENA CAVA, PERC APPROACH 2019-04-23 00:00:00 MYLENE [facility] ULTRASONOGRAPHY OF SUPERIOR VENA CAVA, GUIDANCE 2019-04-23 00:00 :00 MYLENE [facility] Computed tomography of chest without contrast 2019-04-21 00: 00:00 PAPITO VICENTE [facility] Encounters Start Date/Time End Date/Time Encounter Type Admission Type [facility] Care Department Encounter ID Source 2019-05-28 18:42:00 2019-06-02 12:45:00 Discharged Inpatient 1 [facility] [id number] [facility] 2019-04-22 08:49:00 2019-04-30 14:05:00 Discharged Inpatient 1 [facility] [id number] [facility] 2019-01-15 12:56:00 2019-01-15 12:56:00 Outpatient [facility] PUL [id number] [facility] 2018-12-26 11:45:00 2018-12-25 21:45:00 Inpatient E [facility] MED [id number] [facility] 2018-12-22 00:19:00 2018-12-22 00:19:00 Emergency E [facility]SE [facility]SE [id number] [facility] 2018-08-12 06:56:00 2018-08-12 06:56:00 Outpatient MHSE MHSE [id number] [facility] 2018-07-09 11:42:00 2018-07-09 14:20:00 Departed Emergency Room [facility] [id number] [facility] 2013-05-21 17:01:45 2013-05-21 17:01:44 Outpatient MHIE MHIE [id number] 2013-04-18 12:45:08 2013-04-18 12:45:07 Outpatient MHIE MHIE [id number] 2013-04-02 08:56:10 2013-04-02 08:56:09 Outpatient MHIE MHIE [id number] 2013-03-24 10:03:52 2013-03-24 10:03:51 Outpatient MHIE MHIE [id number] 2013 14:03:18 2013 14:03:17 Outpatient MHIE MHIE [id number] 2012-11-18 01:52:48 2012-11-18 01:52:27 Outpatient MHIE MHIE [id number] 2012-04-07 08:04:02 2012-04-07 08:03:46 Outpatient MHIE MHIE [id number] Results Test Description Test Time Test Comments Results Result Comments Source CHEST SINGLE (PORTABLE) 2020-02-17 09:31:00 [facility] : 1940 Sex: F [place] [address] Patient Name: PRACHI PAGE MR #: [id number] : 1940 Age/Sex: 80/F Req #: [id number] [facility] Physician: CARMENZA CHAKRABORTY MD Ordered by: IRVING RODARTE MD Report #: [id number] Location: [facility] Room/Bed: [place] [address] Procedure: [id number] DX/CHEST SINGLE (PORTABLE) Exam Date: 02/17/20 Exam Time: 05 REPORT STATUS: Signed EXAMINATION: CHEST SINGLE (PORTABLE) INDICATION: Cough COMPARISON: Chest radiograph and chest CT of 02/16/2020 FINDINGS: LINES/TUBES:EKG leads overlie the chest. LUNGS:The lungs are well-inflated. No focal consolidation or pulmonary edema. Mild right basilar subsegmental atelectasis. PLEURA:No pleural effusion or pneumothorax. MEDIASTINUM:The cardiomediastinal silhouette appears normal in size and shape. BONES/SOFT TISSUES:No acute osseous injury. ABDOMEN:No free air under the diaphragm. IMPRESSION: Mild right basilar subsegmental atelectasis. No focal consolidation. Signed by: Mary Hester MD on 02/17/2020 9:32 AM Dictated By: MARY HESTER MD 1 Transcribed By: RADHA on 02/17/20931 COPY TO: IRVING RODARTE MD CT CHEST WO 2020-02-16 14:05:00 [facility] : 1940 Sex: F [facility] [address] [place] [address] Patient Name: PRACHI PAGE MR #: [id number] : 1940 Age/Sex: 80/F Req #: [id number] [facility] Physician: CARMENZA CHAKRABORTY MD Ordered by: CARMENZA CHAKRABORTY MD Report #: [id number] Location: [facility] Room/Bed: [place] [address] Procedure: [id number] CT/CT CHEST WO Exam Date: 02/16/20 Exam Time: 1241 REPORT STATUS: Signed CT of the chest. Comparison: 06/01/2019 Clinical History: Shortness of breath. Possible pneumonia. Possible congestive heart failure. Technique: Helical CT scan of the chest was performed from just above the thoracic inlet through the adrenal glands. Intravenous contrast administration was not utilized. Coronal and sagittal reconstructions were generated from the raw data. Multiple images were submitted for interpretation. This exam was performed according to our departmental dose-optimization program which includes automated exposure control, adjustment of the mA and/or kV according to patient size Discussion: Lung li: There is presence of mild bronchial wall thickening involving the right middle lobe. There is a patch of opacity with air bronchogram involving the medial right middle lobe. This could represent atelectasis and/or pneumonia. This has improved compared with the previous exam and might represent chronic changes. There is also subsegmental atelectasis in the right upper lobe along the course of the major fissure. No other focal lung or airway disease visualized. No lung nodules. Central airways: Unremarkable Pleural spaces and pleura: No pleural effusion, pneumothorax or pleural plaques. Pulmonary mercy: Normal Mediastinum: Unremarkable Cardiac chambers, pericardium and great vessels: Cardiomegaly. Coronary artery calcification. Aortic and mitral annulus calcification. The ascending aorta measures 45 mm. This is aneurysmal. The pulmonary artery measures 37 mm across at the same level. This is also dilated. The descending thoracic aorta at the same level measures 32 mm. This is also considered enlarged. Thyroid: Unremarkable Lymph nodes: No lymphadenopathy Azygos vein: Unremarkable The esophagus: The esophagus is thick walled especially close to the GE junction. Presence of esophageal bases is not ruled out. Thoracic duct: Unremarkable Osseous structures: Osteopenia and accentuated kyphosis of the thoracic spine Upper abdomen: The liver has a cirrhotic morphology. The spleen is borderline enlarged. There is presence of a large number of vessels in the gastrohepatic ligament that raises the possibility of gastric varices. Please see above regarding esophagus also. Body wall: Unremarkable Breasts: There is an approximately 2.8 x 2.2 cm mass with irregular borders and calcifications in the right breast. It was seen on the p revious CT also. This requires correlation with mammography or further evaluation. Axilla: Unremarkable Lower neck: Grossly unremarkable. Impression: Minimal bronchial wall thickening along with a patch of atelectasis and/or consolidation in the right middle lobe as described above which has improved compared with the previous CT in May of this CT or. This could represent chronic process. Clinical correlation is required. No other focal lung disease of significance. Cirrhotic liver with suggestion of portal hypertension. A contrast-enhanced abdominal CT. Performed for f urther evaluation Right breast mass as described above with recommendations for further evaluation as above. Signed by: Rcik Mccloud MD on 02/16/2020 2:31 PM Dictated By: RICK MCCLOUD MD 1431 Transcribed By: RADHA on 02/16/20 1431 COPY TO: CARMENZA CHAKRABORTY MD CHEST SINGLE (PORTABLE) 2020-02-16 05:30[facility] 1940 Sex: F [facility] [address] [place] [address] Patient Name: PRACHI PAGE MR #: [id number] : 1940 Age/Sex: 80/F Req #: [id number] Adm Physician: CARMENZA CHAKRABORTY MD Ordered by: REYES CHAKRABORTY DO Report #: [id number] Location: [facility] Room/Bed: [place] [address] Procedure: [id number] DX/CHEST SINGLE (PORTABLE) Exam Date: 02/16/20 Exam Time: 0410 REPORT STATUS: Signed EXAMINATION: CHEST SINGLE (PORTABLE) INDICATION: Y DYspnea [id number] 0410 COMPARISON: 06/01/2019 FINDINGS: AP view TUBES and LINES: None. LUNGS: Lungs are well inflated. Central vascular congestion and mild interstitial edema. PLEURA: Small left pleural effusion. No pneumothorax. HEART AND MEDIASTINUM: The cardiomediastinal silhouette is unremarkable. BONES AND SOFT TISSUES: No acute osseous lesion. Soft tissues are unremarkable. UPPER ABDOMEN: No free air under the diaphragm. IMPRESSION: Pulmonary vascular congestion and mild interstitial edema. Small left pleural effusion. Underlying atelectasis/pneumonia cannot be excluded in the appropriate clinical context. Signed by: Dr. Milo Garcia MD on 02/16/2020 5:31 AM Dictated By: MILO GARCIA MD 0531 Transcribed By: RADHA on 02/16/20530 COPY TO: REYES CHAKRABORTY Sodium Level 2019-06-02 05:22:00 Test Item Sodium Level (test code = 2951-2) 147 136-145 H [facility]Potassium Fnbdx9687-74-10 05:22:00* Test Item Value Reference Range Interpretation Comments Potassium Level (test code = 2823-3) 3.6 3.5-5.1 [facility] HospitalChloride [id number] 05:22:00* Test Item Value Reference Range Interpretation Comments Chloride Level (test code = 2075-0) 105 98-107 [facility] HospitalCarbon Dioxide Pylcj2022-41-57 05:22:00* Test Item Value Reference Range Interpretation Comments Carbon Dioxide Level (test code = 2028-9) 34 22-29 H [facility] HospitalAnion [id number] 05:22:00* Test Item Value Reference Range Interpretation Comments Anion Gap (test code = 82157-9) 11.6 8-16 [facility] HospitalBlood Urea Xteycozj9977-11-95 05:22:00* Test Item Value Reference Range Interpretation Comments Blood Urea Nitrogen (test code = 3094-0) 15 7-26 [facility] HospitalCreatinine2020-02-18 05:22:00* Test Item Value Reference Range Interpretation Comments Creatinine (test code = 2160-0) 0.92 0.57-1.11 [facility] HospitalBUN/Creatinine Bttkb1874-12-10 05:22:00* Test Item Value Reference Range Interpretation Comments BUN/Creatinine Ratio (test code = 3097-3) 16 6-25 [facility] HospitalEstimat Glomerular Filtration Rate 2019-06-02 05:22:00* Test Item Value Reference Range Interpretation Comments Estimat Glomerular Filtration Rate (test code = 788810687) 59 >60 L Ranges were taken from the National Kidney Disease Education Program and the [facility] [employer] literature.Reference ranges:60 or greater: Aqpfko44-61 ( for 3 consecutive months): Chronic kidney disease 15 or less: Kidney failureMayhill HospitalGlucose Bjhzy9524-05-26 05:22:00* Test Item Value Reference Range Interpretation Comments Glucose Level (test code = DNJ5047) 119 74-118 H [facility] HospitalCalcium Hcqth7298-63-36 05:22:00* Test Item Value Reference Range Interpretation Comments Calcium Level (test code = 68284-7) 8.6 8.4-10.2 [facility] HospitalWhite Blood Zdzhw6589-59-54 05:12:00* Test Item Value Reference Range Interpretation Comments White Blood Count (test code = 6690-2) 9.77 4.8-10.8 [facility] HospitalRed Blood Baqkv8276-70-30 05:12:00* Test Item Value Reference Range Interpretation Comments Red Blood Count (test code = 789-8) 3.78 3.6-5.1 [facility] HospitalHemoglobin2020-02-18 05:12:00* Test Item Value Reference Range Interpretation Comments Hemoglobin (test code = 86293-5) 9.5 12.0-16.0 L [facility] HospitalHematocrit2020-02-18 05:12:00* Test Item Value Reference Range Interpretation Comments Hematocrit (test code = 4544-3) 32.5 34.2-44.1 L [facility] HospitalMean Corpuscular Szhoot5683-25-00 05:12:00* Test Item Value Reference Range Interpretation Comments Mean Corpuscular Volume (test code = 787-2) 86.0 81-99 [facility] HospitalMean Corpuscular Xueapgdqem0247-00-42 05:12:00* Test Item Value Reference Range Interpretation Comments Mean Corpuscular Hemoglobin (test code = 785-6) 25.1 28-32 L [facility] HospitalMean Corpuscular Hemoglobin Concent 2019-06-02 05:12:00* Test Item Value Reference Range Interpretation Comments Mean Corpuscular Hemoglobin Concent (test code = 786-4) 29.2 31-35 L [facility] HospitalRed Cell Distribution Hxscf5048-97-33 05:12:00* Test Item Value Reference Range Interpretation Comments Red Cell Distribution Width (test code = 12948-1) 18.9 11.7 -14.4 H [facility] HospitalPlatelet Swmpy2851-37-28 05:12:00* Test Item Value Reference Range Interpretation Comments Platelet Count (test code = 777-3) 148 140-360 [facility] HospitalNeutrophils (%) (Auto)2019-06-02 05:12:00 * Test Item Value Reference Range Interpretation Comments Neutrophils (%) (Auto) (test code = 99622-2) 84.9 38.7-80.0 H [facility] HospitalLymphocytes (%) (Auto)2019-06-02 05:12:00 * Test Item Value Reference Range Interpretation Comments Lymphocytes (%) (Auto) (test code = 736-9) 8.6 18.0-39.1 L [facility] HospitalMonocytes (%) (Auto)2019-06-02 05:12:00* Test Item Value Reference Range Interpretation Comments Monocytes (%) (Auto) (test code = 5905-5) 5.7 4.4-11.3 [facility] HospitalEosinophils (%) (Auto)2019-06-02 05:12:00 * Test Item Value Reference Range Interpretation Comments Eosinophils (%) (Auto) (test code = 713-8) 0.0 0.0-6.0 [facility] HospitalBasophils (%) (Auto)2019-06-02 05:12:00* Test Item Value Reference Range Interpretation Comments Basophils (%) (Auto) (test code = 706-2) 0.2 0.0-1.0 [facility] HospitalIM GRANULOCYTES %2019-06-02 05:12:00* Test Item Value Reference Range Interpretation Comments IM GRANULOCYTES % (test code = IM GRANULOCYTES %) 0.6 0.0- 1.0 [facility] HospitalNeutrophils # (Auto)2019-06-02 05:12:00* Test Item Value Reference Range Interpretation Comments Neutrophils # (Auto) (test code = 751-8) 8.3 2.1-6.9 H [facility] HospitalLymphocytes # (Auto)2019-06-02 05:12:00* Test Item Value Reference Range Interpretation Comments Lymphocytes # (Auto) (test code = 43879-6) 0.8 1.0-3.2 L [facility] HospitalMonocytes # (Auto)2019-06-02 05:12:00* Test Item Value Reference Range Interpretation Comments Monocytes # (Auto) (test code = 742-7) 0.6 0.2-0.8 [facility] HospitalEosinophils # (Auto)2019-06-02 05:12:00* Test Item Value Reference Range Interpretation Comments Eosinophils # (Auto) (test code = 711-2) 0.0 0.0-0.4 [facility] HospitalBasophils # (Auto)2019-06-02 05:12:00* Test Item Value Reference Range Interpretation Comments Basophils # (Auto) (test code = 704-7) 0.0 0.0-0.1 [facility] HospitalAbsolute Immature Granulocyte (auto 2019-06-02 05:12:00* Test Item Value Reference Range Interpretation Comments Absolute Immature Granulocyte (auto (paola t code = Absolute Immature Granulocyte (auto) 0.06 0-0.1 [facility] HospitalFolate2020-02-18 04:53:00* Test Item Value Reference Range Interpretation Comments Folate (test code = 2284-8) 10.0 >3.0 A serum folate concentration of less than 3.1 ng/mL isconsidered to represent cl inical deficiency.Performed at: - [facility] [address] [id number] Director: Ilir Benito MD, Phone: [phone] HospitalCT CHEST [id number] 20:41:00 [place] [address] Patient Name: PRACHI PAGE MR #: [id number] : 1940 Age/Sex: 79/F Req #: [id number] Adm Physician: CARMENZA CHAKRABORTY MD Ordered by: CARMENZA CHAKRABORTY MD Report #: [id number] Location: MED/SURG2 Room/Bed: [facility] Procedure: [id number] CT/CT CH EST W Exam Date: 06/01/19 Exam Time: 1845 REPORT STATUS: Signed EXAM: CT Chest WITH contrast 06/01/2019 8:25 AM INDICATION: Shortness of breath COMPARISON: Ches t x-ray, 06/01/2019; chest CT, 04/21/2019; CT abdomen/pelvis, 04/23/2019 TECHNIQU E: Chest was scanned utilizing a multidetector helical scanner from the lung a pex through the level of the diaphragm after administration of IV contrast. Th in section reconstructions were obtained with special concentration on the p ulmonary arteries. Coronal and sagittal reformations were obtained. Pulmonary embolism protocol was performed. Dose modulation, iterative reconstruction, and/or weight based adjustment of the mA/kV was utilized to reduce the radiat ion dose to as low as reasonably achievable IV CONTRAST: 100 c c Isovue-370 RADIATION DOSE: Total DLP: 477.30 mGy*cm Estimated effective dose: (DLP x 0.014 x size factor) mSv COMPLICA TIONS: None FINDINGS: LINES/ TUBES: Right PICC extends to the lower SV C. LUNGS AND AIRWAYS: No filling defect is identified within the pulmonary arteries to the segmental level. There is consolidation with air bronchograms in the right middle lobe and at the base of the right lower lobe. Patchy ai rspace opacities are seen elsewhere in the right lower lobe. Patchy airspace o pacities are also seen at the base of the left lower lobe. Trachea and main br onchi are clear. There is bilateral perihilar bronchial wall thickening. PL EURA: There is a small right pleural effusion. HEART AND MEDIASTINUM: The t hyroid gland is normal. No mediastinal, hilar or axillary lymphadenopathy. T he heart is slightly enlarged. There is no pericardial effusion. The aorta is atherosclerotic with scattered calcified plaque. Ascending aorta measures 4.0 cm, main pulmonary artery 3.2 cm, dilated. The partially visualized mid abdom inal aorta, below the renal arteries, contains extensive mural thrombus with m ild narrowing of the opacified lumen.. UPPER ABDOMEN: Included portions of the liver show nodular contour compatible with cirrhosis. Prominent tortuo us vessels near the GE junction are compatible with varices as noted on previo us exam. There is a punctate calculus in the right renal collecting system. Th ere are partially visualized cysts in the upper portion of the right kidney. BONES: No acute or suspicious bony lesions. Degenerative changes are seen in the thoracic spine with evidence for bony demineralization. SOFT TISSUES: There is a focal area density measuring 2.1 cm in the right breast which is of uncertain significance. IMPRESSION: 1. Consolidations with air bro nchograms in the right middle lobe and right lower lobe. To a lesser extent th lee findings are also present in the left lower lobe. Findings suggest multifo florence pneumonia. Small right pleural effusion. 2. No CT evidence for acute pulmonary embolus. Main pulmonary artery is dilated as on the previous exam, s uggesting pulmonary hypertension. Ascending thoracic aorta is ectatic measurin g 4.0 cm, unchanged from previous exam. 3. Extensive atherosclerosis of the aorta and coronary arteries. Partially visualized infrarenal abdominal aorta contains extensive mural thrombus with narrowing of the lumen. 4. Focal 2 .1 cm density in the right breast of indeterminate significance. Correlation w ith mammography is recommended if not recently performed. Staff: Chance Signed by: Dr. Edmond Fletcher M.D. on 06/01/2019 8:55 PM Dictated By: EDMOND FLETCHER MD 54 T ranscribed By: RADHA on 06/01/192054 COPY TO: CARMENZA CHAKRABORTY MD Bedside Bnkfckt6487-98-97 20:35:00* Test Item Value Reference Range Interpretation Comments Bedside Glucose (test code = 31679-4) 261 70-120 H Meter ID: [id number] [facility] TVNFCXLCV3705-04-58 15:53:00 [facility] [address], [place] [address] Patient Name: PRACHI PAGE MR #: [id number] : 1940 Age/Sex: 79/F Req #: [id number] Adm Physician: CARMENZA CHAKRABORTY MD Ordered by: CARMENZA CHAKRABORTY MD Report #: [id number] Location: MED/SURG2 Room/Bed: [facility] Procedure: [id number] DX/CHEST XRAY LINE PLACEMENT Exam Date: 06/01/19 Exam Time: 1519 REPORT STATUS: Signed EXAMI NATION: CHEST XRAY LINE PLACEMENT INDICATION: Line placement COMP ARISON: Chest radiograph 05/28/2019 FINDINGS: LINES/TUBES:Interval placement of right PICC line, terminating in the superior vena cava. EKG leads overlie the chest. LUNGS:The lungs are moderately inflated. Right greater than left basilar opacities. PLEURA:Small bilateral pleural effusions. No pneumothorax. MEDIASTINUM:The cardiomediastinal silhouette appears unchan ged in size and shape. BONES/SOFT TISSUES:No acute osseous injury. A BDOMEN:No free air under the diaphragm. IMPRESSION: Right PICC line t erminates in the superior vena cava. Small bilateral pleural effusions. Rig ht greater than left bibasilar patchy opacities, most likely subsegmental atel ectasis. Signed by: Mary Hester MD on 06/01/2019 3:55 PM Dictated By: MARY HESTER MD [id number] Transc ribed By: RADHA on 06/01/19 5680 COPY TO: CARMENZA CHAKRABORTY MD Creatine Kinase [id number] 19:49:00* Test Item Value Reference Range Interpretation Comments Creatine Kinase MB (test code = 76671-9) 2.00 0-5.0 [facility]Troponin [id number] 19:49:00* Test Item Value Reference Range Interpretation Comments Troponin I (test code = FGE2957) 0.028 0-0.300 [facility] HospitalCreatine Eugixd0720-34-01 19:48:00* Test Item Value Reference Range Interpretation Comments Creatine Kinase (test code = 2157-6) 19 29-168 L [facility] HospitalDifferential Total Cells Counted 2019-05-29 07:58:00* Test Item Value Reference Range Interpretation Comments Differential Total Cells Counted (test code = Differen tial Total Cells Counted) 100 [facility] HospitalNeutrophils % (Manual)2019-05-29 07:58:00 * Test Item Value Reference Range Interpretation Comments Neutrophils % (Manual) (test code = 56444-6) 73 40-74 [facility] HospitalLymphocytes % (Manual)2019-05-29 07:58:00 * Test Item Value Reference Range Interpretation Comments Lymphocytes % (Manual) (test code = 737-7) 18 19-48 L [facility] HospitalMonocytes % (Manual)2019-05-29 07:58:00* Test Item Value Reference Range Interpretation Comments Monocytes % (Manual) (test code = 744-3) 8 3.4-9.0 [facility] HospitalEosinophils % (Manual)2019-05-29 07:58:00 * Test Item Value Reference Range Interpretation Comments Eosinophils % (Manual) (test code = 714-6) 1 0-7 [facility] HospitalPlatelet Xqupfvlh0668-03-59 07:58:00* Test Item Value Reference Range Interpretation Comments Platelet Estimate (test code = 72367-4) ADEQUATE [facility] HospitalPlatelet Morphology Ueoeiix0219-39-14 07:58:00* Test Item Value Reference Range Interpretation Comments Platelet Morphology Comment (test code = 00890-3) NORMAL [facility] HospitalRed Cell Morphology Cctvjdy7292-04-37 07:58:00* Test Item Value Reference Range Interpretation Comments Red Cell Morphology Comment (test code = 6742-1) NORMAL [facility] HospitalVitamin B12 Zlyeo8599-98-87 06:32:00* Test Item Value Reference Range Interpretation Comments Vitamin B12 Level (test code = 23168-4) 300 213-816 [facility] HospitalFerritin2020-02-14 06:25:00* Test Item Value Reference Range Interpretation Comments Ferritin (test code = 2276-4) 10.57 4.63-204.00 [facility] HospitalPercent Reticulocyte Wlses3699-66-55 06:10:00* Test Item Value Reference Range Interpretation Comments Percent Reticulocyte Count (test code = 03632-1) 4.7 0.8-2 .2 H [facility] HospitalIron Yccih4016-52-55 06:05:00* Test Item Value Reference Range Interpretation Comments Iron Level (test code = 2498-4) 31 50-170 L [facility] HospitalTotal Iron Binding Fxismaca0766-69-76 06:05:00* Test Item Value Reference Range Interpretation Comments Total Iron Binding Capacity (test code = 2500-7) 374 261-4 78 [facility] HospitalPercent Iron Mqufqnsxle7650-80-42 06:05:00* Test Item Value Reference Range Interpretation Comments Percent Iron Saturation (test code = 2502-3) 8 15-50 L [facility] HospitalTransferrin2020-02-14 06:05:00* Test Item Value Reference Range Interpretation Comments Transferrin (test code = 3034-6) 267 180-382 [facility] HospitalProthrombin Hkpp1770-92-74 06:01:00* Test Item Value Reference Range Interpretation Comments Prothrombin Time (test code = 5902-2) 14.5 11.9-14.5 [facility] HospitalProthromb Time International Ratio 2019-05-29 06:01:00* Test Item Value Reference Range Interpretation Comments Prothromb Time International Ratio (test code = 6301-6) 1.06 Oral Anticoagulant Therapy INR Values:1. Low Intensity Therapy 1.5 - 2.02 . Moderate Intensity Therapy 2.0 - 3.03. High Intensity Therapy(1) 2.5 - 3. 54. High Intensity Therapy(2) 3.0 - 4.05. Panic Value INR > 5.0 [facility] HospitalActivated Partial Thromboplast Time 2019-05-29 06:01:00* Test Item Value Reference Range Interpretation Comments Activated Partial Thromboplast Time (test code = 38370-2) 30.2 23.8-35.5 [facility] HospitalB-Type Natriuretic Hhidzwc2920-47-02 19:14:00* Test Item Value Reference Range Interpretation Comments B-Type Natriuretic Peptide (test code = 27807-3) 367.3 0-100 H [facility] HospitalTotal Qtpjvrwjq4644-86-65 18:57:00* Test Item Value Reference Range Interpretation Comments Total Bilirubin (test code = 1975-2) 0.5 0.2-1.2 [facility] HospitalAspartate Amino Transf (AST/SGOT) 2019-05-28 18:57:00* Test Item Value Reference Range Interpretation Comments Aspartate Amino Transf (AST/SGOT) (test code = Aspartate Amino Transf (AST/SGOT)) 14 5-34 [facility] HospitalAlanine Aminotransferase (ALT/SGPT) 2019-05-28 18:57:00* Test Item Value Reference Range Interpretation Comments Alanine Aminotransferase (ALT/SGPT) (test code = 1742-6) 7 0-55 [facility] HospitalTotal Uesgriz4861-89-77 18:57:00* Test Item Value Reference Range Interpretation Comments Total Protein (test code = 2885-2) 5.2 6.5-8.1 L [facility] HospitalAlbumin2020-02-13 18:57:00* Test Item Value Reference Range Interpretation Comments Albumin (test code = 1751-7) 2.7 3.5-5.0 L [facility] HospitalGlobulin2020-02-13 18:57:00* Test Item Value Reference Range Interpretation Comments Globulin (test code = 31133-8) 2.5 2.3-3.5 [facility] HospitalAlbumin/Globulin Luojz1486-35-99 18:57:00 * Test Item Value Reference Range Interpretation Comments Albumin/Globulin Ratio (test code = 1759-0) 1.1 0.8-2.0 [facility] HospitalAlkaline Rsjcrjlrzmu5209-11-97 18:57:00* Test Item Value Reference Range Interpretation Comments Alkaline Phosphatase (test code = 6768-6) 62 40-150 [facility] HospitalCHEST SINGLE (PORTABLE)2019-05-28 18:14:00 [facility] [address] [place] [address] Patient Name: PRACHI PAGE MR #: [id number] : 1940 Age/Sex: 79/F Req #: [id number] Adm Physician: Ordered by: REYES CHAKRABORTY DO Report #: [id number] Location: ER Room/Bed: Procedure: [id number] DX/[facility] SINGLE (PORTABLE) Exam Date: 05/28/19 Exam Time: 1800 REPORT STATUS: Signed EXAMI NATION: CHEST SINGLE (PORTABLE) INDICATION: dyspnea 2 [id number] COMPARISON: 04/21/2019. FINDINGS: TUBES and RAFA ES: None. LUNGS: Lungs are well inflated. There are bibasilar atelectasi s. There is mild prominence of the central pulmonary vasculature, consistent with pulmonary venous congestion. PLEURA: Bilateral small pleural effusi ons. No pneumothorax. HEART AND MEDIASTINUM: Cardiac size is mildly enlarg ed. Enlarged bilateral central pulmonary arteries suggesting pulmonary hyperte nsion. BONES AND SOFT TISSUES: No acute osseous lesion. Soft tissues are unremarkable. UPPER ABDOMEN: No free air under the diaphragm. IM PRESSION: 1. Mild pulmonary venous congestion and interstitial edema. 2. Bilateral small pleural effusions. 3. Enlarged pulmonary artery suggest ing pulmonary hypertension. Signed by: Dr. Seema Pantoja M.D. on 05/28/2019 6:15 PM Dictated By: DAVE PANTOJA MD, MD Electronically Sign ed By: DAVE PANTOJA MD, MD on 05/28/191814 Transcribed By: RADHA on 0 1814 COPY TO: REYES CHAKRABORTY DO Bedside Ifdomlk2092-13-85 11:23:00* Test Item Value Reference Range Interpretation Comments Bedside Glucose (test code = 83909-7) 112 70-120 Meter ID: [id number] HospitalDifferential Total Cells Xxpnnxt0101-77-23 10:05:00* Test Item Value Reference Range Interpretation Comments Differential Total Cells Counted (test code = Differen tial Total Cells Counted) 100 [facility] HospitalNeutrophils % (Manual)2019-04-29 10:05:00 * Test Item Value Reference Range Interpretation Comments Neutrophils % (Manual) (test code = 51586-6) 81 40-74 H [facility] HospitalLymphocytes % (Manual)2019-04-29 10:05:00 * Test Item Value Reference Range Interpretation Comments Lymphocytes % (Manual) (test code = 737-7) 13 19-48 L [facility] HospitalMonocytes % (Manual)2019-04-29 10:05:00* Test Item Value Reference Range Interpretation Comments Monocytes % (Manual) (test code = 744-3) 6 3.4-9.0 [facility] HospitalPlatelet Sgqfwzzi9011-85-78 10:05:00* Test Item Value Reference Range Interpretation Comments Platelet Estimate (test code = 65814-9) ADEQUATE [facility] HospitalPlatelet Morphology Jooxqyc5509-46-51 10:05:00* Test Item Value Reference Range Interpretation Comments Platelet Morphology Comment (test code = 64597-4) NORMAL [facility] HospitalRed Cell Morphology Xwhzjre4290-03-34 10:05:00* Test Item Value Reference Range Interpretation Comments Red Cell Morphology Comment (test code = 6742-1) NORMAL [facility] Lakeodium Liyoi9774-70-47 09:36:00* Test Item Value Reference Range Interpretation Comments Sodium Level (test code = 2951-2) 145 136-145 [facility] HospitalPotassium Mlqir8453-09-25 09:36:00* Test Item Value Reference Range Interpretation Comments Potassium Level (test code = 2823-3) 4.9 3.5-5.1 [facility] HospitalChloride Vxyao4063-05-91 09:36:00* Test Item Value Reference Range Interpretation Comments Chloride Level (test code = 2075-0) 105 98-107 [facility] HospitalCarbon Dioxide Ztrij7647-07-05 09:36:00* Test Item Value Reference Range Interpretation Comments Carbon Dioxide Level (test code = 2028-9) 31 22-29 H [facility] HospitalAnion Ibu1354-44-89 09:36:00* Test Item Value Reference Range Interpretation Comments Anion Gap (test code = 23816-5) 13.9 8-16 [facility] HospitalBlood Urea Pyvuejyl9251-79-62 09:36:00* Test Item Value Reference Range Interpretation Comments Blood Urea Nitrogen (test code = 3094-0) 47 7-26 H [facility] HospitalCreatinine2020-01-15 09:36:00* Test Item Value Reference Range Interpretation Comments Creatinine (test code = 2160-0) 1.11 0.57-1.11 [facility] HospitalBUN/Creatinine Kfgwy5642-48-65 09:36:00* Test Item Value Reference Range Interpretation Comments BUN/Creatinine Ratio (test code = 3097-3) 42 6-25 H [facility] HospitalEstimat Glomerular Filtration Rate 2019-04-29 09:36:00* Test Item Value Reference Range Interpretation Comments Estimat Glomerular Filtration Rate (test code = 580046657) 47 >60 L Ranges were taken from the National Kidney Disease Education Program and the [facility] literature.Reference ranges:60 or greater: Bxqzne36-11 ( for 3 consecutive months): Chronic kidney disease 15 or less: Kidney failureMayhill HospitalGlucose Dhkvf8506-95-42 09:36:00* Test Item Value Reference Range Interpretation Comments Glucose Level (test code = UBJ8216) 142 74-118 H [facility] HospitalCalcium Vfhdx3966-10-44 09:36:00* Test Item Value Reference Range Interpretation Comments Calcium Level (test code = 38063-7) 8.7 8.4-10.2 [facility] HospitalWhite Blood Owgoe8970-63-23 09:13:00* Test Item Value Reference Range Interpretation Comments White Blood Count (test code = 6690-2) 11.55 4.8-10.8 H [facility] HospitalRed Blood Eeiff5174-15-52 09:13:00* Test Item Value Reference Range Interpretation Comments Red Blood Count (test code = 789-8) 3.65 3.6-5.1 [facility] HospitalHemoglobin2020-01-15 09:13:00* Test Item Value Reference Range Interpretation Comments Hemoglobin (test code = 67790-7) 9.4 12.0-16.0 L [facility] HospitalHematocrit2020-01-15 09:13:00* Test Item Value Reference Range Interpretation Comments Hematocrit (test code = 4544-3) 32.0 34.2-44.1 L [facility] HospitalMean Corpuscular Pgmpcr6095-67-92 09:13:00* Test Item Value Reference Range Interpretation Comments Mean Corpuscular Volume (test code = 787-2) 87.7 81-99 [facility] HospitalMean Corpuscular Yhoqpmwcks0016-16-68 09:13:00* Test Item Value Reference Range Interpretation Comments Mean Corpuscular Hemoglobin (test code = 785-6) 25.8 28-32 L [facility] HospitalMean Corpuscular Hemoglobin Concent 2019-04-29 09:13:00* Test Item Value Reference Range Interpretation Comments Mean Corpuscular Hemoglobin Concent (test code = 786-4) 29.4 31-35 L [facility] HospitalRed Cell Distribution Ojrik0629-20-99 09:13:00* Test Item Value Reference Range Interpretation Comments Red Cell Distribution Width (test code = 47437-6) 15.2 11.7 -14.4 H [facility] HospitalPlatelet Akwyv4394-83-33 09:13:00* Test Item Value Reference Range Interpretation Comments Platelet Count (test code = 777-3) 210 140-360 [facility] HospitalNeutrophils (%) (Auto)2019-04-29 09:13:00 * Test Item Value Reference Range Interpretation Comments Neutrophils (%) (Auto) (test code = 00113-2) 78.5 38.7-80.0 [facility] HospitalLymphocytes (%) (Auto)2019-04-29 09:13:00 * Test Item Value Reference Range Interpretation Comments Lymphocytes (%) (Auto) (test code = 736-9) 9.3 18.0-39.1 L [facility] HospitalMonocytes (%) (Auto)2019-04-29 09:13:00* Test Item Value Reference Range Interpretation Comments Monocytes (%) (Auto) (test code = 5905-5) 4.6 4.4-11.3 [facility] HospitalEosinophils (%) (Auto)2019-04-29 09:13:00 * Test Item Value Reference Range Interpretation Comments Eosinophils (%) (Auto) (test code = 713-8) 0.0 0.0-6.0 [facility] HospitalBasophils (%) (Auto)2019-04-29 09:13:00* Test Item Value Reference Range Interpretation Comments Basophils (%) (Auto) (test code = 706-2) 0.2 0.0-1.0 [facility] HospitalIM GRANULOCYTES %2019-04-29 09:13:00* Test Item Value Reference Range Interpretation Comments IM GRANULOCYTES % (test code = IM GRANULOCYTES %) 7.4 0.0- 1.0 H [facility] HospitalNeutrophils # (Auto)2019-04-29 09:13:00* Test Item Value Reference Range Interpretation Comments Neutrophils # (Auto) (test code = 751-8) 9.1 2.1-6.9 H [facility] HospitalLymphocytes # (Auto)2019-04-29 09:13:00* Test Item Value Reference Range Interpretation Comments Lymphocytes # (Auto) (test code = 46868-6) 1.1 1.0-3.2 [facility] HospitalMonocytes # (Auto)2019-04-29 09:13:00* Test Item Value Reference Range Interpretation Comments Monocytes # (Auto) (test code = 742-7) 0.5 0.2-0.8 [facility] HospitalEosinophils # (Auto)2019-04-29 09:13:00* Test Item Value Reference Range Interpretation Comments Eosinophils # (Auto) (test code = 711-2) 0.0 0.0-0.4 [facility] HospitalBasophils # (Auto)2019-04-29 09:13:00* Test Item Value Reference Range Interpretation Comments Basophils # (Auto) (test code = 704-7) 0.0 0.0-0.1 [facility] HospitalAbsolute Immature Granulocyte (auto 2019-04-29 09:13:00* Test Item Value Reference Range Interpretation Comments Absolute Immature Granulocyte (auto (paola t code = Absolute Immature Granulocyte (auto) 0.85 0-0.1 H [facility]2020-01-13 06:27:00* Test Item Value Reference Range Interpretation Comments Ammonia (test code = 25726-8) 73 31-123 [facility]2020-01-13 06:27:00* Test Item Value Reference Range Interpretation Comments Ammonia (test code = 15834-0) 73 31-123 [facility] HospitalBlood Nwshucj0130-00-40 22:17:00* Test Item Value Reference Range Interpretation Comments Blood Culture (test code = 30470528) NO GROWTH AFTER 5 DAYS, FINAL REPORT [facility] HospitalBlood Dunlowc5721-77-38 22:17:00* Test Item Value Reference Range Interpretation Comments Blood Culture (test code = 61248314) NO GROWTH AFTER 5 DAYS, FINAL REPORT [facility] HospitalCT ABDOMEN/PELVIS PQ6748-34-40 17:24:00 [place] [address] Patient Name: PRACHI PAGE MR #: [id number] : 1940 Age[facility]: 79[id number] Req #: [id number] Adm Physician: CARMENZA CHAKRABORTY MD Ordered by: CARMENZA CHAKRABORTY MD Report #: [id number] Location: ICU Room/Bed: ICU [facility] Procedure: [id number] CT/CT AB DOMEN/PELVIS WO Exam Date: 04/23/19 Exam Time: 1700 REPORT STATUS: Signed EXAM: CT A bdomen and Pelvis WITHOUT intravenous contrast INDICATION: Liver cirrhosi s COMPARISON: Chest CT of 04/21/2019 TECHNIQUE: Abdomen and pelvis were scanned utilizing a multidetector helical scanner from the lung base to the pu bic symphysis without administration of IV contrast. Coronal and sagittal refo rmations were obtained. IV CONTRAST: None ORAL CONTRAST: Water COMPLICATIONS: None RADIATION DOSE: Total DLP: 440.97 mGy*cm Dose modulation, iterative reconstruction, and/or weight based adjustment of the mA/kV was utilized to reduce the radiation dose to as low as reasonably achievable. FINDINGS: LOWER THORAX: Bibasilar dependent subsegmental atelectasis. Coronary artery atherosclerotic calcifications. HEPATOBILIA RY: Nodular liver surface contour consistent with cirrhosis. No focal liver le jomar. Status post cholecystectomy. SPLEEN: No splenomegaly. PANCREAS: No focal masses or ductal dilatation. ADRENALS: No adrenal nodules. KIDNE YS/URETERS: No hydronephrosis or solid mass lesion. 3 mm right upper pole and 2 mm left lower pole nonobstructive renal calculi. PELVIC ORGANS/BLADDER: Raj edly distended bladder. PERITONEUM / RETROPERITONEUM: No free air or fluid. LYMPH NODES: No lymphadenopathy. VESSELS: Diffuse atherosclerotic calcifica tions of the nonaneurysmal abdominal aorta and major branches. Scattered upper abdominal portosystemic varices. GI TRACT: Diverticulosis without CT evide nce of diverticulitis. No abnormal bowel wall thickening. No bowel obstruction . BONES AND SOFT TISSUES: No acute osseous injury. Grade 1 retrolisthesis a t L2-3 and L3-4. Minimal anterolisthesis at L5-S1. Degenerative changes of the visualized spine. IMPRESSION: Nodular liver surface contour consistent with cirrhosis. Scattered upper abdominal portosystemic varices compatible w ith portal hypertension. Markedly distended bladder, which can be seen in t he setting of bladder outlet obstruction. Small bilateral nonobstructive renal calculi. Signed by: Mary Hester MD on 04/23/2019 5:32 PM Dictated By: MARY HESTER MD 31 COPY TO: CARMENZA CHAKRABORTY MD Thyroid Stimulating Hormone (TSH)2019-04-23 06:36:00* Test Item Value Reference Range Interpretation Comments Thyroid Stimulating Hormone (TSH) (test code = 62170-9) 0.413 0.350-4.940 [facility] HospitalThyroid Stimulating Hormone (TSH) 2019-04-23 06:36:00* Test Item Value Reference Range Interpretation Comments Thyroid Stimulating Hormone (TSH) (test code = 09568-1) 0.413 0.350-4.940 [facility] HospitalCreatine Kinase RH8697-05-76 15:16:00* Test Item Value Reference Range Interpretation Comments Creatine Kinase MB (test code = 55557-8) 8.00 0-5.0 H [facility] HospitalTroponin U1464-51-32 15:16:00* Test Item Value Reference Range Interpretation Comments Troponin I (test code = OVW3745) 0.009 0-0.300 [facility] HospitalCreatine Fbjluc8864-77-12 15:05:00* Test Item Value Reference Range Interpretation Comments Creatine Kinase (test code = 2157-6) 184 29-168 H [facility] HospitalLactic Acid Rwvyf7968-47-30 05:48:00* Test Item Value Reference Range Interpretation Comments Lactic Acid Level (test code = Lactic Acid Level) 2.1 0.5- 2.0 HH Results repeated and called to YUDELKA MAHAN RN at 0547 on 04/22/19 by Barrett Mehta . Read back and verified.[facility] HospitalLactic Acid Eteoq2842-17-60 05:48:00* Test Item Value Reference Range Interpretation Comments Lactic Acid Level (test code = Lactic Acid Level) 2.1 0.5- 2.0 HH Results repeated and called to YUDELKA MAHAN RN at 0547 on 04/22/19 by Barrett Mehta . Read back and verified.[facility] HospitalCT CHEST WO 2019-04-22 00:02:00 [facility] [address] [address] Patient Name: PRACHI PAGE MR #: [id number] : 1940 Age/Sex: 79/F Req #: [id number] Adm Physician: Ordered by: PAPITO VICENTE MD Report #: [id number] Location: ER Room/Bed: Procedure: [id number]/CT CHEST WO Exam Date: 04/21/19 Exam Time: 2340 REPORT STATUS: Signed EXAMINATI ON: CT scan of the chest without contrast. TECHNIQUE: Spiral CT images of the chest were performed from the lung apices to the level of the adrenal glan ds. No intravenous contrast was administered due to depressed glomerular filt ration rate. Coronal and sagittal reformatted images were obtained. MELISSA RISON: CT chest 2011 CLINICAL HISTORY:Abnormal chest x-ray, right [facility] DISCUSSION: ABSENCE OF INTRAVENOUS CONTRAST DECREASES SENSITIV ITY FOR DETECTION OF FOCAL LESIONS AND VASCULAR PATHOLOGY. LINES/TUBES: None. LUNGS AND AIRWAYS: There are groundglass and reticular opacities pre dominantly within the dependent portions of the lower lobes compatible with mock bsegmental atelectasis. Bandlike opacities in the lingula and right middle lob e may reflect focal fibrotic change or additional foci of atelectasis. Trache a, mainstem bronchi, and central lobar and segmental bronchi are patent. PLEURA: No pneumothorax or pleural effusions. HEART AND MEDIASTINUM: Vis ualized portions of the thyroid gland appear normal. There is mild ectasia of the ascending thoracic aorta (4.1 cm). Atherosclerotic calcification of the na tive coronary arteries and great vessel origins which are otherwise normal in caliber and configuration. There is enlargement of the pulmonary outflow tract (3.7 cm) and enlargement of the right and left pulmonary arteries, the former of which accounts for the right hilar fullness described on the same day chest radiograph. Normal heart size without pericardial effusion. LYMPH NODES: No axillary, hilar, or mediastinal lymphadenopathy. ABDOMEN: Nodular ext ernal hepatic contour in keeping with cirrhosis. Gastroesophageal varices are partially visualized and suboptimally visualized in the absence of intravenous contrast. Nonobstructing right upper pole renal calculus. Right upper pole re nal cyst. Adrenals and pancreas are unremarkable to the extent visualized. BONES AND SOFT TISSUES: Diffuse osteopenia. No osseous destructive lesions. IMPRESSION: No pulmonary or mediastinal mass lesion. Right hilar fullness described on the comparison chest radiograph is attributable to ectasia of the ascending thoracic aorta (4.1 cm) and enlargement of the right main pulmonary artery, suggestive of underlying pulmonary hypertension. Follow-up CT scan of the chest in one year is suggested to assess for stability of the thoracic aorta Subsegmental atelectasis and/or age-related fibrotic changes in the lung bases. Atherosclerotic vascular disease. Nonobstructing right upp er pole renal calculus. Cirrhotic appearance of the liver with apparent gas troesophageal varices suggestive of underlying portal hypertension. Cristin d by: Dr. Irving Vicente M.D. on 04/22/2019 12:14 AM Dictated By: IRVING ANDERSON MD Transcribe d By: RADHA on 04/22/1913 COPY TO: PAPITO VICENTE MD B-Type Natriuretic [id number] 22:58:00* Test Item Value Reference Range Interpretation Comments B-Type Natriuretic Peptide (test code = 79078-4) 297.4 0-100 [facility] A,B Antigen 2019-04-21 22:55:00* Test Item Value Reference Range Interpretation Comments Influenza Virus Types A,B Antigen (test code = 63487-9) NEGATIVE NEGATIVE [facility] A,B Antigen 2019-04-21 22:55:00* Test Item Value Reference Range Interpretation Comments Influenza Virus Types A,B Antigen (test code = 00662-2) NEGATIVE NEGATIVE [facility] Streptococcus [id number] 22:49:00* Test Item Value Reference Range Interpretation Comments Group A Streptococcus Screen (test code = 34725-3) NEGATIVE NEG ATIVE [facility] Streptococcus [id number] 22:49:00* Test Item Value Reference Range Interpretation Comments Group A Streptococcus Screen (test code = 99930-6) NEGATIVE NEG ATIVE [facility] Svgqjazlc2289-78-72 22:46:00* Test Item Value Reference Range Interpretation Comments Total Bilirubin (test code = 1975-2) 0.8 0.2-1.2 [facility] Amino Transf (AST/SGOT) 2019-04-21 22:46:00* Test Item Value Reference Range Interpretation Comments Aspartate Amino Transf (AST/SGOT) (test code = Aspartate Amino Transf (AST/SGOT)) 34 5-34 [facility] Aminotransferase (ALT/SGPT) 2019-04-21 22:46:00* Test Item Value Reference Range Interpretation Comments Alanine Aminotransferase (ALT/SGPT) (test code = 1742-6) 19 0-55 [facility] Uqrjmpm1988-86-36 22:46:00* Test Item Value Reference Range Interpretation Comments Total Protein (test code = 2885-2) 6.2 6.5-8.1 L [facility]in2020-01-[facility] 22:46:00* Test Item Value Reference Range Interpretation Comments Albumin (test code = 1751-7) 3.0 3.5-5.0 L [facility]obulin2020-01-07 22:46:00* Test Item Value Reference Range Interpretation Comments Globulin (test code = 20944-5) 3.2 2.3-3.5 [facility]/Globulin [id number] 22:46:00 * Test Item Value Reference Range Interpretation Comments Albumin/Globulin Ratio (test code = 1759-0) 0.9 0.8-2.0 [facility]kaline Amkpxdjrqpg0249-50-51 22:46:00* Test Item Value Reference Range Interpretation Comments Alkaline Phosphatase (test code = 6768-6) 70 40-150 [facility]2019-04-21 22:45:00 [facility] [address] [address] Patient Name: PRACHI PAGE MR #: [id number] : 1940 Age/Sex: 79/F Req #: [id number] Adm Physician: Ordered by: PAPITO VICENTE MD Report #: [id number] Location: ER Room/Bed: Procedure: [id number] 1 DX/CHEST SINGLE (PORTABLE) Exam Date: Exam Time: REPORT STATUS: Signed Examinati on: Single AP view of the chest. COMPARISON: Chest radiograph 01/05/2011, CT chest 2011 INDICATION: Shortness of breath DISCUSSION: The lungs are well-inflated. No gross consolidation, pleural effusion, or pne umothorax. Hazy opacity projecting over both lung bases shown to represent pro minent mediastinal fat on comparison CT 2011. Heart size is normal. There is marked fullness of the right hilum, new compared to prior examination. No acute osseous abnormalities. Posttraumatic deformity related to prior right humeral neck fracture. IMPRESSION: Right hilar fullness may reflect lymphadenopathy, prominent vasculature, or mediastinal/central pulmonary mass. CT scan of the chest with contrast is suggested for further evaluation. Signed by: Dr. Irving Vicente M.D. on 04/21/2019 10:48 PM Dictated By: YELENA VICENTE MD 47 Trans cribed By: RADHA on 04/21/192247 COPY TO: PAPITO VICENTE MD Prothrombin [id number] 22:41:00* Test Item Value Reference Range Interpretation Comments Prothrombin Time (test code = 5902-2) 14.2 11.9-14.5 [facility]thromb Time International Ratio 2019-04-21 22:41:00* Test Item Value Reference Range Interpretation Comments Prothromb Time International Ratio (test code = 6301-6) 1.05 Oral Anticoagulant Therapy INR Values:1. Low Intensity Therapy 1.5 - 2.02 . Moderate Intensity Therapy 2.0 - 3.03. High Intensity Therapy(1) 2.5 - 3. 54. High Intensity Therapy(2) 3.0 - 4.05. Panic Value INR > 5.0 [facility] Partial Thromboplast Time 2019-04-21 22:41:00* Test Item Value Reference Range Interpretation Comments Activated Partial Thromboplast Time (test code = 32298-3) 37.7 23.8-35.5 [facility] Siufz2435-32-17 13:46:00* Test Item Value Reference Range Interpretation Comments Urine Color (test code = 5778-6) YELLOW YELLOW [facility] Urebdws1208-42-70 13:46:00* Test Item Value Reference Range Interpretation Comments Urine Clarity (test code = 61382-0) SL CLOUDY CLEAR [facility] Specific Fsdtshe0860-54-37 13:46:00 * Test Item Value Reference Range Interpretation Comments Urine Specific [place] (test code = 5811-5) 1.015 1.010-1.02 5 [facility] [id number] 13:46:00* Test Item Value Reference Range Interpretation Comments Urine pH (test code = 91195-1) 6 5-7 [facility] Leukocyte Deevzkva2475-65-64 13:46:00* Test Item Value Reference Range Interpretation Comments Urine Leukocyte Esterase (test code = 5799-2) NEGATIVE NEGATIVE [facility] [id number] 13:46:00* Test Item Value Reference Range Interpretation Comments Urine Nitrite (test code = 77939-5) NEGATIVE NEGATIVE [facility] Pnmclhi6157-19-44 13:46:00* Test Item Value Reference Range Interpretation Comments Urine Protein (test code = 5804-0) NEGATIVE NEGATIVE [facility] Glucose (UA)2018-07-09 13:46:00* Test Item Value Reference Range Interpretation Comments Urine Glucose (UA) (test code = 2349-9) NEGATIVE NEGATIVE [facility] Mttefao9928-58-17 13:46:00* Test Item Value Reference Range Interpretation Comments Urine Ketones (test code = 52668-7) NEGATIVE NEGATIVE [facility] Skrlzdafuast8639-85-79 13:46:00* Test Item Value Reference Range Interpretation Comments Urine Urobilinogen (test code = 16969-7) 0.2 0.2-1 [facility] Fptbtlhqn9648-27-40 13:46:00* Test Item Value Reference Range Interpretation Comments Urine Bilirubin (test code = 1978-6) NEGATIVE NEGATIVE [facility] Gmgkd1810-17-33 13:46:00* Test Item Value Reference Range Interpretation Comments Urine Blood (test code = 91434-8) NEGATIVE NEGATIVE [facility] [id number] 13:46:00* Test Item Value Reference Range Interpretation Comments Urine WBC (test code = 5821-4) 0-5 0-5 [facility] [id number] 13:46:00* Test Item Value Reference Range Interpretation Comments Urine RBC (test code = 45947-9) NONE 0-5 [facility] Yhruxwpx6286-08-52 13:46:00* Test Item Value Reference Range Interpretation Comments Urine Bacteria (test code = 53944-1) MODERATE NONE [facility] Epithelial Ilrul7833-99-12 13:46:00 * Test Item Value Reference Range Interpretation Comments Urine Epithelial Cells (test code = 91702-3) NONE NONE [facility] Amorphous Rvwtzzvm3736-46-94 13:46:00* Test Item Value Reference Range Interpretation Comments Urine Amorphous Sediment (test code = 8246-1) FEW FEW [facility] Somnw0197-81-45 13:46:00* Test Item Value Reference Range Interpretation Comments Urine Color (test code = 5778-6) YELLOW YELLOW [facility] Gihllny0419-68-69 13:46:00* Test Item Value Reference Range Interpretation Comments Urine Clarity (test code = 19367-2) SL CLOUDY CLEAR [facility] Specific Zlblesc7071-04-68 13:46:00 * Test Item Value Reference Range Interpretation Comments Urine Specific [place] (test code = 5811-5) 1.015 1.010-1.02 5 [facility] [id number] 13:46:00* Test Item Value Reference Range Interpretation Comments Urine pH (test code = 76983-1) 6 5-7 [facility] Leukocyte Rytwsnlt3232-49-11 13:46:00* Test Item Value Reference Range Interpretation Comments Urine Leukocyte Esterase (test code = 5799-2) NEGATIVE NEGATIVE [facility] Tybetjp3962-41-76 13:46:00* Test Item Value Reference Range Interpretation Comments Urine Nitrite (test code = 96615-8) NEGATIVE NEGATIVE [facility] Ciqedyz7797-27-93 13:46:00* Test Item Value Reference Range Interpretation Comments Urine Protein (test code = 5804-0) NEGATIVE NEGATIVE [facility] Glucose (UA)2018-07-09 13:46:00* Test Item Value Reference Range Interpretation Comments Urine Glucose (UA) (test code = 2349-9) NEGATIVE NEGATIVE [facility] Dusbkkk5704-47-56 13:46:00* Test Item Value Reference Range Interpretation Comments Urine Ketones (test code = 49227-4) NEGATIVE NEGATIVE [facility] Jpymounharnu5559-25-65 13:46:00* Test Item Value Reference Range Interpretation Comments Urine Urobilinogen (test code = 37132-9) 0.2 0.2-1 [facility] Hajloeufg0725-29-33 13:46:00* Test Item Value Reference Range Interpretation Comments Urine Bilirubin (test code = 1978-6) NEGATIVE NEGATIVE [facility] Zcahp5902-79-63 13:46:00* Test Item Value Reference Range Interpretation Comments Urine Blood (test code = 82018-5) NEGATIVE NEGATIVE [facility] [id number] 13:46:00* Test Item Value Reference Range Interpretation Comments Urine WBC (test code = 5821-4) 0-5 0-5 [facility] [id number] 13:46:00* Test Item Value Reference Range Interpretation Comments Urine RBC (test code = 65661-7) NONE 0-5 [facility] Agerabgl2526-96-77 13:46:00* Test Item Value Reference Range Interpretation Comments Urine Bacteria (test code = 86931-9) MODERATE NONE [facility] Epithelial Fgiqo0279-38-93 13:46:00 * Test Item Value Reference Range Interpretation Comments Urine Epithelial Cells (test code = 06060-6) NONE NONE [facility] Amorphous Hlrhskgm6449-41-72 13:46:00* Test Item Value Reference Range Interpretation Comments Urine Amorphous Sediment (test code = 8246-1) FEW FEW [facility]
--- OUTSIDE RECORDS SUMMARY | 2020-02-18 18:59 | XMS REPORT | Continuity of Care Document ---
Author Author EngiverPRACHI SADAR [employer] Address Unknown Phone Unavailable Care Team Providers Care Film Recordist Name Role Phone [employer]AD[employer] Unavailable Un available Problems Problem Status Onset Date Classification Date Reported Comments Source Hypertension Active 05/21/2013 [facility] Type 2 Diabetes Mellitus Active 05/21/2013 [facility] Hypercholesterolemia Active 05/21/2013 [facility] Chronic Obstructive Pulmonary Disease Active 05/21/2013 [facility] Hypothyroidism Active 05/21/2013 [facility] Acute Upper Respiratory Infection Active 05/21/2013 [facility] Acute Bronchitis Active 05/21/2013 [facility] Venous Insufficiency Active 05/21/2013 [facility] Medications Medication Details Route Status Patient Instructions Ordering Provider Order Date Source Gabapentin 300 MG Oral Capsule ; Start Date: 05/20/2013; End Date: (Active) Active 05/20/2013 [facility] Bromfed DM 30-2-10 MG/5ML Oral Syrup ; Start Date: 05/20/2013; End Date: (Active) Active 05/20/2013 [facility] Bromfed DM 30-2-10 MG/5ML Oral Syrup ; Start Date: 04/18/2013; End Date: 05/18/2013 (Active) Active 04/18/2013 [facility] Advair Diskus 250-50 MCG/DOSE Inhalation Aerosol Powder Breath Activated ; Start Date: 04/18/2013; End Date: 04/1899 (Active) Active 04/18/2013 [facility] Azithromycin 250 MG Oral Tablet ; Start Date: 04/18/2013; End Date: 04/23/2013 (Active) Active 04/18/2013 [facility] MetFORMIN HCl 500 MG Oral Tablet ; Start Date: 04/02/2013; End Date: (Active) Active 04/02/2013 [facility] Cefuroxime Axetil 500 MG Oral Tablet ; Start Date: 04/01/2013; End Date: (Active) Active 04/01/2013 [facility] Gabapentin 300 MG Oral Capsule ; Start Date: 03/24/2013; End Date: (Active) Active 03/24/2013 [facility] Levofloxacin 500 MG Oral Tablet ; Start Date: 03/18/2013 (Active) Active 03/18/2013 [facility] Mucinex DM 30-600 MG Oral Tablet Extende d Release 12 Hour ; Start Date: 03/18/2013 (Active) Active 03/18/2013 [facility] PredniSONE 10 MG Oral Tablet ; Start Date: 03/18/2013 (Active) Active 03/18/2013 [facility] Levothyroxine Sodium 75 MCG Oral Tablet ; Start Date: 2013; End Date: (Active) Active 2013 [facility] Aspirin 81 MG Oral Tablet ; St art Date: 04/02/2012 (Active) Active 04/02/2012 [facility] Lisinopril 5 MG Oral Tablet ; Start Date: ; End Date: (Active) Inactive [facility] Fenofibrate Micronized 200 MG Oral Capsule ; Start Date: ; End Date: (Active) Inactive [facility] Simvastatin 40 MG Oral Tablet ; Start Date: ; End Date: (Active) Inactive [facility] Tylenol Extra Strength 500 MG Oral Tablet (Active) Active [facility] MetFORMIN HCl ER 500 MG Oral Tablet Exte nded Release 24 Hour (Active) A ctive [facility] Gabapentin 300 MG TABS (Activ e) Active [facility] Lisinopril 5 MG Oral Tablet ( Active) Active [facility] Levothyroxine Sodium 75 MCG Oral Tablet (Active) Active [facility] Simvastatin 40 MG Oral Tablet (Active) Active [facility] Fenofibrate 200 MG CAPS (Acti ve) Active [facility] TraMADol HCl 50 MG Oral Tablet (Active) Active [facility] Advair Diskus 250-50 MCG/DOSE Inhalation Aerosol Powder Breath Activated (Active) Active [facility] Combivent 18-103 MCG/ACT Inhalation Aerosol (Active) Active [facility] Fish Oil 1200 MG Oral Capsule (Active) Active [facility] Alavert 10 MG Oral Tablet (Ac tive) Active [facility] Calcium 600/Vitamin D TABS (A ctive) Active [facility] Estrace 0.1 MG/GM Vaginal Cream (Active) Active [facility] Case Contour Test STRP (Acti ve) Active [facility] Combivent 18-103 MCG/ACT AERO (Active) Active [facility] Albuterol Sulfate NEBU (Activ e) Active [facility] Allergies, Adverse Reactions, Alerts Substance Category Reaction Severity Reaction type Status Date Reported Comments Source No Known Drug Allergies drug a llergy drug aller gy Active [facility] Immunizations Immunization Date Given Site Status Last Updated Comments Source Fluzone Intramuscular Injectable 03/24/2013 completed [facility] Results No Data Provided for This Section Pathology Reports No Data Provided for This Section Diagnostic Reports No Data Provided for This Section Consultation Notes No Data Provided for This Section Discharge Summaries No Data Provided for This Section History and Physicals No Data Provided for This Section Vital Signs No Data Provided for This Section Encounters Location Location Details Encounter Type Encounter Number Reason For Visit Attending Provider ADM Date DC Date Status Source AUDIT [id number] 04/07/2012 04/07/2012 [facility] DBS, Provi regina: MCKAYLA FRITZ, Status: Pen, Time: 2:15 PM [id number] 04/09/20 12 04/07/2012 [facility] MICKEY Provi regina: KAVYA HERNANDEZ, Status: Pen, Time: 2:00 PM [id number] 07/03/19 13 04/07/2012 [facility] AUDIT [id number] 11/18/2012 11/18/2012 [facility] CADY Provameya regina: MCKAYLA FRITZ, Status: Pen, Time: 4:00 PM [id number] 12/03/19 13 11/18/2012 [facility] AUDIT [id number] 2013 2013 [facility] Purnima LAZAR regina: MCKAYLA FRITZ, Status: Pen, Time: 4:00 PM [id number] 03/04/20 13 2013 [facility] AUDIT [id number] 03/24/2013 03/24/2013 [facility] AUDIT [id number] 04/02/2013 04/02/2013 [facility] AUDIT [id number] 04/18/2013 04/18/2013 [facility] CADY Provi regina: MCKAYLA FRITZ, Status: Pen, Time: 4:00 PM [id number] 05/20/19 14 04/18/2013 [facility] AUDIT [id number] 05/21/2013 05/21/2013 [facility] Purnima LAZAR regina: LAMMCKAYLA, Status: Alec, Time: 4:00 PM [id number] 07/21/19 14 05/21/2013 [facility] Procedures No Data Provided for This Section Assessment and Plan No Data Provided for This Section Plan of Care No Data Provided for This Section Social History Social History Date Source Former Smoker (V15.82); (Active) Being A Social Drinker (Active) Marital History - (Active) 05/21/2013 [facility] Family History Value Date S ource Family history of Hypertension (V17.49); (Active) Family history of Carcinoma Of The Pancreas (Active) 05/21/2013 [facility] Family history of Hypertension (V17.49); (Active) Family history of Carcinoma Of The Pancreas (Active) 04/18/2013 [facility] Family history of Hypertension (V17.49); (Active) Family history of Carcinoma Of The Pancreas (Active) 04/02/2013 [facility] Family history of Hypertension (V17.49); (Active) Family history of Carcinoma Of The Pancreas (Active) 03/24/2013 [facility] Family history of Hypertension (V17.49); (Active) Family history of Carcinoma Of The Pancreas (Active) 2013 [facility] Family history of Carcinoma Of The Pancr eas (Active) Family history of Hypertension (V17.49); (Active) 11/18/2012 [facility] Advance Directives Order Name Results Value Date Source Advance Directives Advance Dir ectives No Advance Directives available. 05/21/2013 [facility] Advance Directives Advance Dir ectives No Advance Directives available. 04/18/2013 [facility] Advance Directives Advance Dir ectives No Advance Directives available. 04/02/2013 [facility] Advance Directives Advance Dir ectives No Advance Directives available. 03/24/2013 [facility] Advance Directives Advance Dir ectives No Advance Directives available. 2013 [facility] Advance Directives Advance Dir ectives No Advance Directives available. 11/18/2012 [facility] Advance Directives Advance Dir ectives No Advance Directives available. 04/07/2012 [facility] Functional Status No Data Provided for This Section
--- OUTSIDE RECORDS SUMMARY | 2020-02-18 18:59 | XMS REPORT | Continuity of Care Document ---
Author Author [employer] Address Unknown Phone Unavailable Care Team Providers Care Demolition Expert Name Role Phone [employer] Unavailable Un available Problems Problem Status Onset Date Classification Date Reported Comments Source Hypertension Active 05/21/2013 [facility] Type 2 Diabetes Mellitus Active 05/21/2013 [facility] Hypercholesterolemia Active 05/21/2013 [facility] Chronic Obstructive Pulmonary Disease Active 05/21/2013 [facility] Hypothyroidism Active 05/21/2013 [facility] Acute Upper Respiratory Infection Active 05/21/2013 [facility] Acute Bronchitis Active 05/21/2013 [facility] Venous Insufficiency Active 05/21/2013 [facility] Medications Medication Details Route Status Patient Instructions Ordering Provider Order Date Source Gabapentin 300 MG Oral Capsule ; Start Date: 05/20/2013; End Date: (Active) Active 05/20/2013 [facility] Bromfed DM 30-2-10 MG/5ML Oral Syrup ; Start Date: 05/20/2013; End Date: (Active) Active 05/20/2013 [facility] Bromfed DM 30-2-10 MG/5ML Oral Syrup ; Start Date: 04/18/2013; End Date: 05/18/2013 (Active) Active 04/18/2013 [facility] Advair Diskus 250-50 MCG/DOSE Inhalation Aerosol Powder Breath Activated ; Start Date: 04/18/2013; End Date: 04/1899 (Active) Active 04/18/2013 [facility] Azithromycin 250 MG Oral Tablet ; Start Date: 04/18/2013; End Date: 04/23/2013 (Active) Active 04/18/2013 [facility] MetFORMIN HCl 500 MG Oral Tablet ; Start Date: 04/02/2013; End Date: (Active) Active 04/02/2013 [facility] Cefuroxime Axetil 500 MG Oral Tablet [...] Calcium 600/Vitamin D TABS (A ctive) Active [facility] Estrace 0.1 MG/GM Vaginal Cream (Active) Active [facility] Case Contour Test STRP (Acti ve) Active [facility] Combivent 18-103 MCG/ACT AERO (Active) Active [facility] Albuterol Sulfate NEBU (Activ e) Active [facility] Allergies, Adverse Reactions, Alerts Substance Category Reaction Severity Reaction type Status Date Reported Comments Source No Known Drug Allergies drug a llergy drug aller gy Active [facility] Immunizations Immunization Date Given Site Status Last Updated Comments Source Fluzone Intramuscular Injectable 03/24/2013 completed [facility] Results No Data Provided for This [...] ADM Date DC Date Status Source AUDIT [id number] 04/07/2012 04/07/2012 [facility] DBS, Provi regina: MCKAYLA FRITZ, Status: Pen, Time: 2:15 PM [id number] 04/09/20 12 04/07/2012 [facility] MICKEY Provi regina: KAVYA HERNANDEZ, Status: Pen, Time: 2:00 PM [id number] 07/03/19 13 04/07/2012 [facility] AUDIT [id number] 11/18/2012 11/18/2012 [facility] CADY Provameya regina: MCKAYLA FRITZ, Status: Pen, Time: 4:00 PM [id number] 12/03/19 13 11/18/2012 [facility] AUDIT [id number] 2013 2013 [facility] Purnima LAZAR regina: MCKAYLA FRITZ, Status: Pen, Time: 4:00 PM [id number] 03/04/20 13 2013 [facility] AUDIT [id number] 03/24/2013 03/24/2013 [facility] AUDIT [id number] 04/02/2013 04/02/2013 [facility] AUDIT [id number] 04/18/2013 04/18/2013 [facility] CADY Provi regina: MCKAYLA FRITZ, Status: Pen, Time: 4:00 PM [id number] 05/20/19 14 04/18/2013 [facility] AUDIT [id number] 05/21/2013 05/21/2013 [facility] Purnima LAZAR regina: LAMMCKAYLA, Status: Alec, Time: 4:00 PM [id number] 07/21/19 14 05/21/2013 [facility] Procedures No Data Provided for This Section Assessment and Plan No Data Provided for This Section Plan of Care No Data Provided for This Section Social History Social History Date Source Former Smoker (V15.82); (Active) Being A Social Drinker (Active) Marital History - (Active) 05/21/2013 [facility] Family History Value Date S ource Family history of Hypertension (V17.49); (Active) Family history of Carcinoma Of The Pancreas (Active) 05/21/2013 [facility] Family history of Hypertension (V17.49); (Active) Family history of Carcinoma Of The Pancreas (Active) 04/18/2013 [facility] Family history of Hypertension (V17.49); (Active) Family history of Carcinoma Of The Pancreas (Active) 04/02/2013 [facility] Family history of Hypertension (V17.49); (Active) Family history of Carcinoma Of The Pancreas (Active) 03/24/2013 [facility] Family history of Hypertension (V17.49); (Active) Family history of Carcinoma Of The Pancreas (Active) 2013 [facility] Family history of Carcinoma Of The Pancr eas (Active) Family history of Hypertension (V17.49); (Active) 11/18/2012 [facility] Advance Directives Order Name Results Value Date Source Advance Directives Advance Dir ectives No Advance Directives available. 05/21/2013 [facility] Advance Directives Advance Dir ectives No Advance Directives available. 04/18/2013 [facility] Advance Directives Advance Dir ectives No Advance Directives available. 04/02/2013 [facility] Advance Directives Advance Dir ectives No Advance Directives available. 03/24/2013 [facility] Advance Directives Advance Dir ectives No Advance Directives available. 2013 [facility] Advance Directives Advance Dir ectives No Advance Directives available. 11/18/2012 [facility] Advance Directives Advance Dir ectives No Advance Directives available. 04/07/2012 [facility] Functional Status No Data Provided for This Section
--- OUTSIDE RECORDS SUMMARY | 2020-02-18 19:00 | XMS REPORT | Continuity of Care Document ---
Author Author [facility] t Organization [facility] Address [facility] [place] [address] Phone Unavailable Care Team Providers Care Quality Improvement Manager Name Role Phone MCKAYLA FRITZ MD PCP CARMENZA CHAKRABORTY Attphys Unavailable CARMENZA CHAKRABORTY Admphys Unavailable Payers Payer Name Policy Type Policy Number Effective Date Expiration Date Brenna jaramillo [facility] [id number] 2019 00:00:00 [facility] [id number] 2019 00:00:00 [facility] Problems Condition Name Condition Details Condition Category Status Onset Date Resolution Date Last Treatment Date Treating Clinician Comments Source Acute exacerbation of chronic obstructive pulmonary disease COPD exacerbation Problem Active [facility] Hypoxia Hypoxia Problem Active [facility] Hypertension Hype rtension Active 05/21/2013 [facility] Problem Active 2013-05-21 23:01:44 Spencer Thomas Type 2 Diabetes Mellitus Type 2 Diabetes Mellitus Active 05/21/2013 [facility] Problem Active 2013-05-21 23:01: 44 Fiona Thomas Hypercholesterolemia Hype rcholesterolemia Active 05/21/2013 [facility] Problem Active 2013-05-21 23:01:44 Fiona Thomas Chronic Obstructive Pulmonary Disease Chronic Obstructive Pulmonary Disease Active 05/21/2013 [facility] Problem Active 2013-05-21 23:01:44 Fiona Thomas Hypothyroidism Hypo thyroidism Active 05/21/2013 [facility] Problem Active 2013-05-21 23:01:44 Melvin Thomas Acute Upper Respiratory Infection Acute Upper Respiratory Infection Active 05/21/2013 [facility] Problem Active 2013-05-21 23:01:44 Fiona Thomas Acute Bronchitis Acut e Bronchitis Active 05/21/2013 [facility] Problem Active 2013-05-21 23:01:44 M sunitha Adamesann Venous Insufficiency Veno us Insufficiency Active 05/21/2013 [facility] Problem Active 2013-05-21 23:01:44 Fiona Thomas [...] 600/Vitamin D TABS 2013-05-21 23:01:44 Yes (Active) Finoa Thomas Case Contour Test STRP 2013-05-21 23:01:44 [...] Inhalation Aerosol 2013-04-18 18:45:07 Yes (Active) Fiona Thomsa Bromfed DM 30-2-10 MG/5ML Oral Syrup 2013-04-18 [...] Yes ; Start Date: 04/02/2012 (Active) Fiona Thomas Lisinopril 5 MG Oral Tablet Yes ; [...] Each Tablet Yes 600 Twice A Day [facility] Estradiol (Estrace) 42.5 Gm Cr Estradiol (Estrace) 42.5 Gm Cr Yes 1 [facility] Estradiol (Estrace) 42.5 Gm Cr Estradiol (Estrace) 42.5 Gm Cr Yes 1 Daily [facility] Fluticasone/Salmeterol (Advair 250-50 Diskus) 1 Each D isk.w.dev Fluticasone/Salmeterol (Advair 250-50 Diskus) 1 Each Disk.w.dev Yes 1 Twice A Day [facility] Gabapentin (Neurontin) 300 Mg Capsule Gabapentin (Neurontin) 300 Mg Capsule Yes Twice A Day [facility] Ipratropium/Albuterol Sulfate (Iprat-Albut 0.5-3(2.5) Mg/3 Ml) 3 Ml Ampul.neb Ipratropium/Albuterol Sulfate (Iprat-Albut 0.5-3(2.5) Mg/3 Ml) 3 Ml Ampul.neb Yes .5 Three Times A Day [facility] Ipratropium/Albuterol Sulfate (Combivent Respimat Inha l [place]) 4 Gm Aer.w.adap Ipratropium/Albuterol Sulfate (Combivent Respimat Inhal [place]) 4 Gm Aer.w.adap Yes 4 as needed for Prn [facility] Levothyroxine Sodium 75 Mcg Tablet Levothyroxine Sodium 75 Mcg Tablet Yes 75 Daily [facility] Loratadine (Alavert) 10 Mg Tab.rapdis Loratadine (Alavert) 10 Mg Ta b.rapdis Yes 10 As Needed [facility] Simvastatin 20 Mg Tablet Simvastatin 20 Mg Tablet Yes 20 Today At 9:00PM [facility] Tramadol Hcl (Ultram 50MG*) 50 Mg Tab Tramadol Hcl (Ultram 50MG*) 5 0 Mg Tab Yes 50 Twice A Day as needed for Pain [facility] Clopidogrel Bisulfate (Clopidogrel) 75 Mg Tablet, 75 M g Oral Clopidogrel Bisulfate (Clopidogrel) 75 Mg Tablet, 75 Mg Oral 2019-04-30 00:00:00 No 75 Daily [facility] Fenofibrate,Micronized (Fenofibrate) 200 Mg Capsule, F enofibrate,Micronized (Fenofibrate) 200 Mg Capsule, 2019-04-30 00:00:00 No Bedtime [facility] Lisinopril 5 Mg Tablet, Lisinopril 5 Mg Tablet, 2019-04-30 00:00 :00 No Daily [facility] Metformin Hcl 500 Mg Tablet, Metformin Hcl 500 Mg Tablet, 2019-04-30 00:00:00 No Twice A Day [facility] Bow-3 Fatty Acids/Fish Oil (Fish Oil 1,200 Mg Softge l) 1 Each Capsule, Bow-3 Fatty Acids/Fish Oil (Fish Oil 1,200 Mg Softgel) 1 Each Capsule, 2019-04-30 00:00:00 No Daily [facility] Simvastatin (Zocor) 40 Mg Tablet, Simvastatin (Zocor) 40 Mg Tabl et, 2019-04-22 00:00:00 No Bedtime [facility] Procedures Procedure Date / Time Performed Performing Clinician Sour e Computed tomography of chest with contrast 2019-06-01 00:00:00 Jhonatan WINTERS [facility] EGD with biopsy 2019-05-29 00:00:00 LEÓN MEJIA [facility] CT of abdomen and pelvis without contrast 2019-04-23 00:00:00 STEVAN LOONEY [facility] INSERTION OF INFUSION DEV INTO SUP VENA CAVA, PERC APPROACH 2019-04-23 00:00:00 MYLENE [facility] ULTRASONOGRAPHY OF SUPERIOR VENA CAVA, GUIDANCE 2019-04-23 00:00 :00 MYLENE [facility] Computed tomography of chest without contrast 2019-04-21 00: 00:00 PAPITO VICENTE [facility] Encounters Start Date/Time End Date/Time Encounter Type Admission Type [facility] Care Department Encounter ID Source 2019-05-28 18:42:00 2019-06-02 12:45:00 Discharged Inpatient 1 [facility]LENE [facility] [id number] [facility] 2019-04-22 08:49:00 2019-04-30 14:05:00 Discharged Inpatient 1 [facility] [id number] [facility] 2019-01-15 12:56:00 2019-01-15 12:56:00 [id number] 2018-12-26 11:45:00 2018-12-25 21:45:00 [facility]patient E [id number] 2018-12-22 00:19:00 2018-12-22 00:19:00 Emergency E [facility] 2018-08-12 06:56:00 2018-08-12 06:56:00 Outpatient [id number] 2018-07-09 11:42:00 2018-07-09 14:20:00 Departed Emergency Room [facility] [id number] [facility] 2013-05-21 17:01:45 2013-05-21 17:01:44 Outpatient MHIE MHIE [id number] 2013-04-18 12:45:08 2013-04-18 12:45:07 Outpatient MHIE MHIE [id number] 2013-04-02 08:56:10 2013-04-02 08:56:09 Outpatient MHIE MHIE [id number] 2013-03-24 10:03:52 2013-03-24 10:03:51 Outpatient MHIE MHIE [id number] 2013 14:03:18 2013 14:03:17 Outpatient MHIE MHIE [id number] 2012-11-18 01:52:48 2012-11-18 01:52:27 Outpatient MHIE MHIE [id number] 2012-04-07 08:04:02 2012-04-07 08:03:46 Outpatient MHIE MHIE [id number] Results Test Description Test Time Test Comments Results Result Comments Source CHEST SINGLE (PORTABLE) 2020-02-17 09:31:00 [facility] : 1940 Sex: F [place] [address] Patient Name: PRACHI PAGE MR #: [id number] : 1940 Age/Sex: 80/F Req #: [id number] [facility] Physician: CARMENZA CHAKRABORTY MD Ordered by: IRVING RODARTE MD Report #: [id number] Location: [facility] Room/Bed: [place] [address] Procedure: [id number] DX/CHEST SINGLE (PORTABLE) Exam Date: 02/17/20 Exam [...] RODARTE MD CT CHEST WO 2020-02-16 14:05:00 [facility] : 1940 Sex: F [facility] [address] [place] [address] Patient Name: PRACHI PAGE MR #: [id number] : 1940 Age/Sex: 80/F Req #: [id number] [facility] Physician: CARMENZA CHAKRABORTY MD Ordered by: CARMENZA CHAKRABORTY MD Report #: [id number] Location: [facility] Room/Bed: [place] [address] Procedure: [id number] CT/CT CHEST WO Exam Date: 02/16/20 Exam [...] for further evaluation as above. Signed by: Rick Mccloud MD on 02/16/2020 2:31 PM Dictated By: RICK MCCLOUD MD 1431 Transcribed By: RADHA on 02/16/20 1431 COPY TO: CARMENZA CHAKRABORTY MD CHEST SINGLE (PORTABLE) 2020-02-16 05:30:[address] [facility] [place] : 1940 Sex: F [facility] [address] [place] [address] Patient Name: PRACHI PAGE MR #: [id number] : 1940 Age/Sex: 80/F Req #: [id number] Adm Physician: CARMENZA CHAKRABORYT MD Ordered by: REYES CHAKRABORTY DO Report #: [id number] Location: [facility] Room/Bed: [place] [address] Procedure: [id number] DX/CHEST SINGLE (PORTABLE) Exam Date: 02/16/20 Exam Time: 0410 REPORT STATUS: Signed EXAMINATION: CHEST SINGLE (PORTABLE) INDICATION: Y DYspnea [id number] COMPARISON: 06/01/2019 FINDINGS: AP view TUBES [...] (test code = 2951-2) 147 136-145 H [facility]lePotassium Petpu4289-61-18 05:22:00* Test Item Value Reference Range Interpretation Comments Potassium Level (test code = 2823-3) 3.6 3.5-5.1 [facility]leChloride Lrods4387-40-82 05:22:00* Test Item Value Reference Range Interpretation Comments Chloride Level (test code = 2075-0) 105 98-107 [facility]leCarbon Dioxide Uparj4910-21-96 05:22:00* Test Item Value Reference Range Interpretation Comments Carbon Dioxide Level (test code = 2028-9) 34 22-29 H [facility]leAnion Lgr7225-19-31 05:22:00* Test Item Value Reference Range Interpretation Comments Anion Gap (test code = 35964-5) 11.6 8-16 [facility]leBlood Urea Laozrgzy7440-92-47 05:22:00* Test Item Value Reference Range Interpretation Comments Blood Urea Nitrogen (test code = 3094-0) 15 7-26 [facility]leCreatinine2020-02-18 05:22:00* Test Item Value Reference Range Interpretation Comments Creatinine (test code = 2160-0) 0.92 0.57-1.11 [facility]leBUN/Creatinine Bgqth7462-81-34 05:22:00* Test Item Value Reference Range Interpretation Comments BUN/Creatinine Ratio (test code = 3097-3) 16 6-25 [facility] AzleEstimat Glomerular Filtration Rate 2019-06-02 05:22:00* Test Item Value Reference Range Interpretation Comments Estimat Glomerular Filtration Rate (test code = 614465549) 59 >60 L Ranges were taken from the National Kidney Disease Education Program and the [facility] Kid[facility] Foundation literature.Reference ranges:60 or greater: Tiaibj42-79 ( for 3 consecutive months): Chronic kidney disease 15 or less: Kidney failureTexas Health Harris Methodist Hospital AzleGlucose Vftni9547-55-30 05:22:00* Test Item Value Reference Range Interpretation Comments Glucose Level (test code = DVD7890) 119 74-118 H [facility]leCalcium Ihvtk4638-66-53 05:22:00* Test Item Value Reference Range Interpretation Comments Calcium Level (test code = 65973-5) 8.6 8.4-10.2 [facility]leWhite Blood Rtdnq6393-36-52 05:12:00* Test Item Value Reference Range Interpretation Comments White Blood Count (test code = 6690-2) 9.77 4.8-10.8 [facility] AzleRed Blood Ruvbh6025-95-66 05:12:00* Test Item Value Reference Range Interpretation Comments Red Blood Count (test code = 789-8) 3.78 3.6-5.1 [facility]leHemoglobin2020-02-18 05:12:00* Test Item Value Reference Range Interpretation Comments Hemoglobin (test code = 38137-0) 9.5 12.0-16.0 L [facility]leHematocrit2020-02-18 05:12:00* Test Item Value Reference Range Interpretation Comments Hematocrit (test code = 4544-3) 32.5 34.2-44.1 L [facility] AzleMean Corpuscular Tjzyyo4296-19-98 05:12:00* Test Item Value Reference Range Interpretation Comments Mean Corpuscular Volume (test code = 787-2) 86.0 81-99 [facility]leMean Corpuscular Usvqukuskn2913-99-15 05:12:00* Test Item Value Reference Range Interpretation Comments Mean Corpuscular Hemoglobin (test code = 785-6) 25.1 28-32 L [facility]leMean Corpuscular Hemoglobin Concent 2019-06-02 05:12:00* Test Item Value Reference Range Interpretation Comments Mean Corpuscular Hemoglobin Concent (test code = 786-4) 29.2 31-35 L [facility] AzleRed Cell Distribution Fejrk5243-16-20 05:12:00* Test Item Value Reference Range Interpretation Comments Red Cell Distribution Width (test code = 87033-1) 18.9 11.7 -14.4 H [facility] AzlePlatelet Vbrjw6654-12-43 05:12:00* Test Item Value Reference Range Interpretation Comments Platelet Count (test code = 777-3) 148 140-360 [facility]leNeutrophils (%) (Auto)2019-06-02 05:12:00 * Test Item Value Reference Range Interpretation Comments Neutrophils (%) (Auto) (test code = 34606-8) 84.9 38.7-80.0 H [facility]leLymphocytes (%) (Auto)2019-06-02 05:12:00 * Test Item Value Reference Range Interpretation Comments Lymphocytes (%) (Auto) (test code = 736-9) 8.6 18.0-39.1 L [facility]leMonocytes (%) (Auto)2019-06-02 05:12:00* Test Item Value Reference Range Interpretation Comments Monocytes (%) (Auto) (test code = 5905-5) 5.7 4.4-11.3 [facility]leEosinophils (%) (Auto)2019-06-02 05:12:00 * Test Item Value Reference Range Interpretation Comments Eosinophils (%) (Auto) (test code = 713-8) 0.0 0.0-6.0 [facility]leBasophils (%) (Auto)2019-06-02 05:12:00* Test Item Value Reference Range Interpretation Comments Basophils (%) (Auto) (test code = 706-2) 0.2 0.0-1.0 [facility]leIM GRANULOCYTES %2019-06-02 05:12:00* Test Item Value Reference Range Interpretation Comments IM GRANULOCYTES % (test code = IM GRANULOCYTES %) 0.6 0.0- 1.0 [facility]leNeutrophils # (Auto)2019-06-02 05:12:00* Test Item Value Reference Range Interpretation Comments Neutrophils # (Auto) (test code = 751-8) 8.3 2.1-6.9 H [facility]leLymphocytes # (Auto)2019-06-02 05:12:00* Test Item Value Reference Range Interpretation Comments Lymphocytes # (Auto) (test code = 39247-7) 0.8 1.0-3.2 L [facility]leMonocytes # (Auto)2019-06-02 05:12:00* Test Item Value Reference Range Interpretation Comments Monocytes # (Auto) (test code = 742-7) 0.6 0.2-0.8 [facility]leEosinophils # (Auto)2019-06-02 05:12:00* Test Item Value Reference Range Interpretation Comments Eosinophils # (Auto) (test code = 711-2) 0.0 0.0-0.4 [facility]leBasophils # (Auto)2019-06-02 05:12:00* Test Item Value Reference Range Interpretation Comments Basophils # (Auto) (test code = 704-7) 0.0 0.0-0.1 [facility] AzleAbsolute Immature Granulocyte (auto 2019-06-02 05:12:00* Test Item Value Reference Range Interpretation Comments Absolute Immature Granulocyte (auto (paola t code = Absolute Immature Granulocyte (auto) 0.06 0-0.1 [facility] AzleFolate2020-02-18 04:53:00* Test Item Value Reference Range Interpretation Comments Folate (test code = 2284-8) 10.0 >3.0 A serum folate concentration of less than 3.1 ng/mL isconsidered to represent cl inical deficiency.Performed at: - [facility] [address] [id number] Director: Ilir Benito MD, Phone: [phone] Health Harris Methodist Hospital AzleCT CHEST [id number] 20:41:00 [place] [address] Patient Name: PRACHI PAGE MR #: [id number] : 1940 Age/Sex: 79/F Req #: [id number] Adm Physician: CARMENZA CHAKRABORTY MD Ordered by: CARMENZA CHAKRABORTY MD Report #: [id number] Location: MED/SURG2 Room/Bed: [facility] Procedure: [id number] CT/CT CH EST W Exam Date: 06/01/19 [...] 06/01/192054 COPY TO: CARMENZA CHAKRABORTY MD Bedside Twdhqob9982-01-44 20:35:00* Test Item Value Reference Range Interpretation Comments Bedside Glucose (test code = 50812-6) 261 70-120 H Meter ID: [id number] [facility] WKCIAFANB0090-20-94 15:53:00 [facility] [address] [place], [place] [address] Patient Name: PRACHI PAGE MR #: [id number] : 1940 Age/Sex: 79/F Req #: [id number] Adm Physician: CARMENZA CHAKRABORTY MD Ordered by: CARMENZA CHAKRABORTY MD Report #: [id number] Location: MED/SURG2 Room/Bed: [facility] Procedure: [id number] DX/CHEST XRAY LINE PLACEMENT Exam Date: 06/01/19 [...] 3:55 PM Dictated By: MARY HESTER MD 0231 Transc ribed By: RADHA on 06/01/19 0929 COPY TO: CARMENZA CHAKRABORTY MD Creatine Kinase [id number] 19:49:00* Test Item Value Reference Range Interpretation Comments Creatine Kinase MB (test code = 37244-8) 2.00 0-5.0 [facility] AzleTroponin J2210-42-72 19:49:00* Test Item Value Reference Range Interpretation Comments Troponin I (test code = GUN6990) 0.028 0-0.300 [facility]leCreatine Fzqkci5408-91-72 19:48:00* Test Item Value Reference Range Interpretation Comments Creatine Kinase (test code = 2157-6) 19 29-168 L [facility] AzleDifferential Total Cells Counted 2019-05-29 07:58:00* Test Item Value Reference Range Interpretation Comments Differential Total Cells Counted (test code = Differen tial Total Cells Counted) 100 [facility] AzleNeutrophils % (Manual)2019-05-29 07:58:00 * Test Item Value Reference Range Interpretation Comments Neutrophils % (Manual) (test code = 28638-9) 73 40-74 [facility] AzleLymphocytes % (Manual)2019-05-29 07:58:00 * Test Item Value Reference Range Interpretation Comments Lymphocytes % (Manual) (test code = 737-7) 18 19-48 L [facility] AzleMonocytes % (Manual)2019-05-29 07:58:00* Test Item Value Reference Range Interpretation Comments Monocytes % (Manual) (test code = 744-3) 8 3.4-9.0 [facility]leEosinophils % (Manual)2019-05-29 07:58:00 * Test Item Value Reference Range Interpretation Comments Eosinophils % (Manual) (test code = 714-6) 1 0-7 [facility] AzlePlatelet Lyefryyo7447-17-76 07:58:00* Test Item Value Reference Range Interpretation Comments Platelet Estimate (test code = 79274-7) ADEQUATE [facility] AzlePlatelet Morphology Evveost9290-08-55 07:58:00* Test Item Value Reference Range Interpretation Comments Platelet Morphology Comment (test code = 10505-2) NORMAL [facility] AzleRed Cell Morphology Tzcylqb8073-40-20 07:58:00* Test Item Value Reference Range Interpretation Comments Red Cell Morphology Comment (test code = 6742-1) NORMAL [facility] AzleVitamin B12 Leqfq1284-91-42 06:32:00* Test Item Value Reference Range Interpretation Comments Vitamin B12 Level (test code = 61187-9) 300 213-816 [facility] AzleFerritin2020-02-14 06:25:00* Test Item Value Reference Range Interpretation Comments Ferritin (test code = 2276-4) 10.57 4.63-204.00 [facility] AzlePercent Reticulocyte Tgrmc9572-18-48 06:10:00* Test Item Value Reference Range Interpretation Comments Percent Reticulocyte Count (test code = 81182-0) 4.7 0.8-2 .2 H [facility] AzleIron Figdj3517-45-35 06:05:00* Test Item Value Reference Range Interpretation Comments Iron Level (test code = 2498-4) 31 50-170 L [facility]leTotal Iron Binding Hleelqgj1684-74-79 06:05:00* Test Item Value Reference Range Interpretation Comments Total Iron Binding Capacity (test code = 2500-7) 374 261-4 78 [facility] AzlePercent Iron Nmyyeoqchi4529-39-50 06:05:00* Test Item Value Reference Range Interpretation Comments Percent Iron Saturation (test code = 2502-3) 8 15-50 L [facility] AzleTransferrin2020-02-14 06:05:00* Test Item Value Reference Range Interpretation Comments Transferrin (test code = 3034-6) 267 180-382 [facility] AzleProthrombin Ioar0962-53-56 06:01:00* Test Item Value Reference Range Interpretation Comments Prothrombin Time (test code = 5902-2) 14.5 11.9-14.5 [facility] AzleProthromb Time International Ratio 2019-05-29 06:01:00* Test Item Value Reference Range Interpretation Comments Prothromb Time International Ratio (test code = 6301-6) 1.06 Oral Anticoagulant Therapy INR Values:1. Low Intensity Therapy 1.5 - 2.02 . Moderate Intensity Therapy 2.0 - 3.03. High Intensity Therapy(1) 2.5 - 3. 54. High Intensity Therapy(2) 3.0 - 4.05. Panic Value INR > 5.0 [facility] AzleActivated Partial Thromboplast Time 2019-05-29 06:01:00* Test Item Value Reference Range Interpretation Comments Activated Partial Thromboplast Time (test code = 38343-3) 30.2 23.8-35.5 [facility] AzleB-Type Natriuretic Kqrhvgw5534-78-60 19:14:00* Test Item Value Reference Range Interpretation Comments B-Type Natriuretic Peptide (test code = 63699-2) 367.3 0-100 H [facility] AzleTotal Klskkjbqr5637-51-33 18:57:00* Test Item Value Reference Range Interpretation Comments Total Bilirubin (test code = 1975-2) 0.5 0.2-1.2 [facility] AzleAspartate Amino Transf (AST/SGOT) 2019-05-28 18:57:00* Test Item Value Reference Range Interpretation Comments Aspartate Amino Transf (AST/SGOT) (test code = Aspartate Amino Transf (AST/SGOT)) 14 5-34 [facility] AzleAlanine Aminotransferase (ALT/SGPT) 2019-05-28 18:57:00* Test Item Value Reference Range Interpretation Comments Alanine Aminotransferase (ALT/SGPT) (test code = 1742-6) 7 0-55 [facility] AzleTotal Gvgjtrz1392-68-90 18:57:00* Test Item Value Reference Range Interpretation Comments Total Protein (test code = 2885-2) 5.2 6.5-8.1 L [facility] AzleAlbumin2020-02-13 18:57:00* Test Item Value Reference Range Interpretation Comments Albumin (test code = 1751-7) 2.7 3.5-5.0 L [facility] AzleGlobulin2020-02-13 18:57:00* Test Item Value Reference Range Interpretation Comments Globulin (test code = 98477-6) 2.5 2.3-3.5 [facility] AzleAlbumin/Globulin Klekn6686-55-36 18:57:00 * Test Item Value Reference Range Interpretation Comments Albumin/Globulin Ratio (test code = 1759-0) 1.1 0.8-2.0 [facility] AzleAlkaline Ebphgszbewf5970-77-73 18:57:00* Test Item Value Reference Range Interpretation Comments Alkaline Phosphatase (test code = 6768-6) 62 40-150 [facility] AzleCHEST SINGLE (PORTABLE)2019-05-28 18:14:00 [facility] [address] [place] [address] Patient Name: PRACHI PAGE MR #: [id number] : 1940 Age/Sex: 79/F Req #: [id number] Adm Physician: Ordered by: REYES CHAKRABORTY DO Report #: [id number] Location: ER Room/Bed: Procedure: [id number] DX[facility] SINGLE (PORTABLE) Exam Date: 05/28/19 Exam Time: 1800 REPORT STATUS: Signed EXAMI NATION: CHEST SINGLE (PORTABLE) INDICATION: dyspnea 2 [id number] 1800 COMPARISON: 04/21/2019. FINDINGS: TUBES and RAFA [...] 1814 COPY TO: REYES CHAKRABORTY DO Bedside Vgvvrmy3481-48-09 11:23:00* Test Item Value Reference Range Interpretation Comments Bedside Glucose (test code = 53218-6) 112 70-120 Meter ID: [id number] Health Harris Methodist Hospital AzleDifferential Total Cells Sitvnwn1794-56-73 10:05:00* Test Item Value Reference Range Interpretation Comments Differential Total Cells Counted (test code = Differen tial Total Cells Counted) 100 [facility]leNeutrophils % (Manual)2019-04-29 10:05:00 * Test Item Value Reference Range Interpretation Comments Neutrophils % (Manual) (test code = 52675-2) 81 40-74 H [facility]leLymphocytes % (Manual)2019-04-29 10:05:00 * Test Item Value Reference Range Interpretation Comments Lymphocytes % (Manual) (test code = 737-7) 13 19-48 L [facility]leMonocytes % (Manual)2019-04-29 10:05:00* Test Item Value Reference Range Interpretation Comments Monocytes % (Manual) (test code = 744-3) 6 3.4-9.0 [facility] AzlePlatelet Mdgnwdhi1874-55-55 10:05:00* Test Item Value Reference Range Interpretation Comments Platelet Estimate (test code = 16887-7) ADEQUATE [facility] AzlePlatelet Morphology Trijbjh6028-47-98 10:05:00* Test Item Value Reference Range Interpretation Comments Platelet Morphology Comment (test code = 52026-5) NORMAL [facility]leRed Cell Morphology Wkncxjd6897-17-43 10:05:00* Test Item Value Reference Range Interpretation Comments Red Cell Morphology Comment (test code = 6742-1) [facility]AL [facility] Zkmgw5082-40-78 09:36:00* Test Item Value Reference Range Interpretation Comments Sodium Level (test code = 2951-2) 145 136-145 [facility]lePotassium Bjglh0963-52-13 09:36:00* Test Item Value Reference Range Interpretation Comments Potassium Level (test code = 2823-3) 4.9 3.5-5.1 [facility]leChloride Gszyz7524-57-60 09:36:00* Test Item Value Reference Range Interpretation Comments Chloride Level (test code = 2075-0) 105 98-107 [facility] AzleCarbon Dioxide Xxqdn8613-94-97 09:36:00* Test Item Value Reference Range Interpretation Comments Carbon Dioxide Level (test code = 2028-9) 31 22-29 H [facility] AzleAnion Wba5903-10-59 09:36:00* Test Item Value Reference Range Interpretation Comments Anion Gap (test code = 82802-7) 13.9 8-16 [facility]leBlood Urea Mjqjaxhm8574-28-07 09:36:00* Test Item Value Reference Range Interpretation Comments Blood Urea Nitrogen (test code = 3094-0) 47 7-26 H [facility] AzleCreatinine2020-01-15 09:36:00* Test Item Value Reference Range Interpretation Comments Creatinine (test code = 2160-0) 1.11 0.57-1.11 [facility]leBUN/Creatinine Zohbg6116-01-25 09:36:00* Test Item Value Reference Range Interpretation Comments BUN/Creatinine Ratio (test code = 3097-3) 42 6-25 H [facility] AzleEstimat Glomerular Filtration Rate 2019-04-29 09:36:00* Test Item Value Reference Range Interpretation Comments Estimat Glomerular Filtration Rate (test code = 884129677) 47 >60 L Ranges were taken from the National Kidney Disease Education Program and the [facility] literature.Reference ranges:60 or greater: Jdwial97-56 ( for 3 consecutive months): Chronic kidney disease 15 or less: Kidney failureTexas [facility] AzleGlucose Aplbr6432-43-35 09:36:00* Test Item Value Reference Range Interpretation Comments Glucose Level (test code = TVG9563) 142 74-118 H [facility] AzleCalcium Fvifs0720-37-36 09:36:00* Test Item Value Reference Range Interpretation Comments Calcium Level (test code = 57534-3) 8.7 8.4-10.2 [facility] AzleWhite Blood Avugy0164-45-90 09:13:00* Test Item Value Reference Range Interpretation Comments White Blood Count (test code = 6690-2) 11.55 4.8-10.8 H [facility] AzleRed Blood Gimfe0564-32-95 09:13:00* Test Item Value Reference Range Interpretation Comments Red Blood Count (test code = 789-8) 3.65 3.6-5.1 [facility]leHemoglobin2020-01-15 09:13:00* Test Item Value Reference Range Interpretation Comments Hemoglobin (test code = 04039-0) 9.4 12.0-16.0 L [facility]leHematocrit2020-01-15 09:13:00* Test Item Value Reference Range Interpretation Comments Hematocrit (test code = 4544-3) 32.0 34.2-44.1 L [facility] AzleMean Corpuscular Uioqyh7938-77-13 09:13:00* Test Item Value Reference Range Interpretation Comments Mean Corpuscular Volume (test code = 787-2) 87.7 81-99 [facility]leMean Corpuscular Pjvivalzbo6988-64-79 09:13:00* Test Item Value Reference Range Interpretation Comments Mean Corpuscular Hemoglobin (test code = 785-6) 25.8 28-32 L [facility]leMean Corpuscular Hemoglobin Concent 2019-04-29 09:13:00* Test Item Value Reference Range Interpretation Comments Mean Corpuscular Hemoglobin Concent (test code = 786-4) 29.4 31-35 L [facility] AzleRed Cell Distribution Gbdza5179-25-92 09:13:00* Test Item Value Reference Range Interpretation Comments Red Cell Distribution Width (test code = 51434-5) 15.2 11.7 -14.4 H [facility] AzlePlatelet Hqbzn5784-17-62 09:13:00* Test Item Value Reference Range Interpretation Comments Platelet Count (test code = 777-3) 210 140-360 [facility]leNeutrophils (%) (Auto)2019-04-29 09:13:00 * Test Item Value Reference Range Interpretation Comments Neutrophils (%) (Auto) (test code = 27706-3) 78.5 38.7-80.0 [facility]leLymphocytes (%) (Auto)2019-04-29 09:13:00 * Test Item Value Reference Range Interpretation Comments Lymphocytes (%) (Auto) (test code = 736-9) 9.3 18.0-39.1 L [facility]leMonocytes (%) (Auto)2019-04-29 09:13:00* Test Item Value Reference Range Interpretation Comments Monocytes (%) (Auto) (test code = 5905-5) 4.6 4.4-11.3 [facility]leEosinophils (%) (Auto)2019-04-29 09:13:00 * Test Item Value Reference Range Interpretation Comments Eosinophils (%) (Auto) (test code = 713-8) 0.0 0.0-6.0 [facility]leBasophils (%) (Auto)2019-04-29 09:13:00* Test Item Value Reference Range Interpretation Comments Basophils (%) (Auto) (test code = 706-2) 0.2 0.0-1.0 [facility] AzleIM GRANULOCYTES %2019-04-29 09:13:00* Test Item Value Reference Range Interpretation Comments IM GRANULOCYTES % (test code = IM GRANULOCYTES %) 7.4 0.0- 1.0 H [facility]leNeutrophils # (Auto)2019-04-29 09:13:00* Test Item Value Reference Range Interpretation Comments Neutrophils # (Auto) (test code = 751-8) 9.1 2.1-6.9 H [facility]leLymphocytes # (Auto)2019-04-29 09:13:00* Test Item Value Reference Range Interpretation Comments Lymphocytes # (Auto) (test code = 32838-2) 1.1 1.0-3.2 [facility]leMonocytes # (Auto)2019-04-29 09:13:00* Test Item Value Reference Range Interpretation Comments Monocytes # (Auto) (test code = 742-7) 0.5 0.2-0.8 [facility]leEosinophils # (Auto)2019-04-29 09:13:00* Test Item Value Reference Range Interpretation Comments Eosinophils # (Auto) (test code = 711-2) 0.0 0.0-0.4 [facility]leBasophils # (Auto)2019-04-29 09:13:00* Test Item Value Reference Range Interpretation Comments Basophils # (Auto) (test code = 704-7) 0.0 0.0-0.1 [facility] AzleAbsolute Immature Granulocyte (auto 2019-04-29 09:13:00* Test Item Value Reference Range Interpretation Comments Absolute Immature Granulocyte (auto (paola t code = Absolute Immature Granulocyte (auto) 0.85 0-0.1 H [facility]2020-01-13 06:27:00* Test Item Value Reference Range Interpretation Comments Ammonia (test code = 21272-0) 73 31-123 [facility]2020-01-13 06:27:00* Test Item Value Reference Range Interpretation Comments Ammonia (test code = 79913-3) 73 31-123 [facility] AzleBlood Rhwudcn5060-94-80 22:17:00* Test Item Value Reference Range Interpretation Comments Blood Culture (test code = 38786058) NO GROWTH AFTER 5 DAYS, FINAL REPORT [facility] AzleBlood Xigpzjs0563-38-90 22:17:00* Test Item Value Reference Range Interpretation Comments Blood Culture (test code = 86668673) NO GROWTH AFTER 5 DAYS, FINAL REPORT [facility] AzleCT ABDOMEN/PELVIS FR4152-86-27 17:24:00 [place] [address] Patient Name: PRACHI PAGE MR #: [id number] : 1940 [facility]: 79[id number] Req #: [id number] Adm Physician: CARMENZA CHAKRABORTY MD Ordered by: CARMENZA CHAKRABORTY MD Report #: [id number] Location: ICU Room/Bed: ICU [facility] Procedure: [id number] CT/CT AB DOMEN/PELVIS WO Exam Date: 04/23/19 [...] Thyroid Stimulating Hormone (TSH) (test code = 59959-8) 0.413 0.350-4.940 [facility]leThyroid Stimulating Hormone (TSH) 2019-04-23 06:36:00* Test Item Value Reference Range Interpretation Comments Thyroid Stimulating Hormone (TSH) (test code = 79810-9) 0.413 0.350-4.940 [facility] AzleCreatine Kinase DZ5629-24-07 15:16:00* Test Item Value Reference Range Interpretation Comments Creatine Kinase MB (test code = 93365-3) 8.00 0-5.0 H [facility] AzleTroponin A4217-06-15 15:16:00* Test Item Value Reference Range Interpretation Comments Troponin I (test code = PPO9979) 0.009 0-0.300 [facility] AzleCreatine Znduhh2754-63-79 15:05:00* Test Item Value Reference Range Interpretation Comments Creatine Kinase (test code = 2157-6) 184 29-168 H [facility] AzleLactic Acid Bkguj1582-49-52 05:48:00* Test Item Value Reference Range Interpretation Comments Lactic Acid Level (test code = Lactic Acid Level) 2.1 0.5- 2.0 HH Results repeated and called to YUDELKA MAHAN RN at 0547 on 04/22/19 by Barrett Mehta . Read back and verified.[facility] AzleLactic Acid Rjiks4220-22-23 05:48:00* Test Item Value Reference Range Interpretation Comments Lactic Acid Level (test code = Lactic Acid Level) 2.1 0.5- 2.0 HH Results repeated and called to YUDELKA MAHAN RN at 0547 on 04/22/19 by Barrett Mehta . Read back and verified.[facility]leCT CHEST WO 2019-04-22 00:02:00 [facility] [address] [place] [address] Patient Name: PRACHI PAGE MR #: [id number] : 1940 Age/Sex: 79/F Req #: [id number] Adm Physician: Ordered by: PAPITO VICENTE MD Report #: [id number] Location: ER Room/Bed: Procedure: [id number]/CT [...] COPY TO: PAPITO VICENTE MD B-Type Natriuretic Enexqll8286-64-91 22:58:00* Test Item Value Reference Range Interpretation Comments B-Type Natriuretic Peptide (test code = 04533-7) 297.4 0-100 H [facility] AzleInfluenza Virus Types A,B Antigen 2019-04-21 22:55:00* Test Item Value Reference Range Interpretation Comments Influenza Virus Types A,B Antigen (test code = 53395-9) NEGATIVE NEGATIVE [facility] AzleInfluenza Virus Types A,B Antigen 2019-04-21 22:55:00* Test Item Value Reference Range Interpretation Comments Influenza Virus Types A,B Antigen (test code = 68793-5) NEGATIVE NEGATIVE [facility] AzleGroup A Streptococcus Qzxcya3319-50-89 22:49:00* Test Item Value Reference Range Interpretation Comments Group A Streptococcus Screen (test code = 57613-8) NEGATIVE NEG ATIVE [facility] AzleGroup A Streptococcus Oneeam3023-92-59 22:49:00* Test Item Value Reference Range Interpretation Comments Group A Streptococcus Screen (test code = 11201-1) NEGATIVE NEG ATIVE [facility] AzleTotal Pdahywimv9628-40-71 22:46:00* Test Item Value Reference Range Interpretation Comments Total Bilirubin (test code = 1975-2) 0.8 0.2-1.2 [facility] AzleAspartate Amino Transf (AST/SGOT) 2019-04-21 22:46:00* Test Item Value Reference Range Interpretation Comments Aspartate Amino Transf (AST/SGOT) (test code = Aspartate Amino Transf (AST/SGOT)) 34 5-34 [facility] AzleAlanine Aminotransferase (ALT/SGPT) 2019-04-21 22:46:00* Test Item Value Reference Range Interpretation Comments Alanine Aminotransferase (ALT/SGPT) (test code = 1742-6) 19 0-55 [facility] AzleTotal Kqqlzim7537-52-73 22:46:00* Test Item Value Reference Range Interpretation Comments Total Protein (test code = 2885-2) 6.2 6.5-8.1 L [facility] AzleAlbumin2020-01-07 22:46:00* Test Item Value Reference Range Interpretation Comments Albumin (test code = 1751-7) 3.0 3.5-5.0 L [facility] AzleGlobulin2020-01-07 22:46:00* Test Item Value Reference Range Interpretation Comments Globulin (test code = 54738-2) 3.2 2.3-3.5 [facility] AzleAlbumin/Globulin Kxllw2017-86-38 22:46:00 * Test Item Value Reference Range Interpretation Comments Albumin/Globulin Ratio (test code = 1759-0) 0.9 0.8-2.0 [facility] AzleAlkaline Kjmmpeuhyaw2316-66-76 22:46:00* Test Item Value Reference Range Interpretation Comments Alkaline Phosphatase (test code = 6768-6) 70 40-150 [facility] AzleCHEST SINGLE (PORTABLE)2019-04-21 22:45:00 [facility] [address] [place] [address] Patient Name: PRACHI PAGE MR #: [id number] : 1940 Age/Sex: 79/F Req #: [id number] Adm Physician: Ordered by: PAPITO VICENTE MD Report #: [id number] Location: ER Room/Bed: Procedure: [id number] DX/CHEST [...] 04/21/192247 COPY TO: PAPITO VICENTE MD Prothrombin Ghjb1810-40-37 22:41:00* Test Item Value Reference Range Interpretation Comments Prothrombin Time (test code = 5902-2) 14.2 11.9-14.5 [facility] AzleProthromb Time International Ratio 2019-04-21 22:41:00* Test Item Value Reference Range Interpretation Comments Prothromb Time International Ratio (test code = 6301-6) 1.05 Oral Anticoagulant Therapy INR Values:1. Low Intensity Therapy 1.5 - 2.02 . Moderate Intensity Therapy 2.0 - 3.03. High Intensity Therapy(1) 2.5 - 3. 54. High Intensity Therapy(2) 3.0 - 4.05. Panic Value INR > 5.0 [facility] AzleActivated Partial Thromboplast Time 2019-04-21 22:41:00* Test Item Value Reference Range Interpretation Comments Activated Partial Thromboplast Time (test code = 80023-5) 37.7 23.8-35.5 H [facility] AzleUrine Jiihq0005-33-90 13:46:00* Test Item Value Reference Range Interpretation Comments Urine Color (test code = 5778-6) YELLOW YELLOW [facility] AzleUrine Tdmdmsj0865-44-92 13:46:00* Test Item Value Reference Range Interpretation Comments Urine Clarity (test code = 19644-5) SL CLOUDY CLEAR [facility] AzleUrine Specific Yrpxwzx3925-90-73 13:46:00 * Test Item Value Reference Range Interpretation Comments Urine Specific [place] (test code = 5811-5) 1.015 1.010-1.02 5 [facility] AzleUrine gH7099-13-41 13:46:00* Test Item Value Reference Range Interpretation Comments Urine pH (test code = 78422-6) 6 5-7 [facility]leUrine Leukocyte Kanphdpt7210-49-25 13:46:00* Test Item Value Reference Range Interpretation Comments Urine Leukocyte Esterase (test code = 5799-2) NEGATIVE NEGATIVE [facility] AzleUrine Uwmspag4901-61-19 13:46:00* Test Item Value Reference Range Interpretation Comments Urine Nitrite (test code = 09088-0) NEGATIVE NEGATIVE [facility] AzleUrine Yrmaopp0266-18-77 13:46:00* Test Item Value Reference Range Interpretation Comments Urine Protein (test code = 5804-0) NEGATIVE NEGATIVE [facility] Glucose (UA)2018-07-09 13:46:00* Test Item Value Reference Range Interpretation Comments Urine Glucose (UA) (test code = 2349-9) NEGATIVE NEGATIVE [facility] Scxwyjb0885-26-79 13:46:00* Test Item Value Reference Range Interpretation Comments Urine Ketones (test code = 68845-4) NEGATIVE NEGATIVE [facility] Kzskjxhvgxgj2969-96-57 13:46:00* Test Item Value Reference Range Interpretation Comments Urine Urobilinogen (test code = 88434-0) 0.2 0.2-1 [facility]leUrine Evmmoexot1551-92-49 13:46:00* Test Item Value Reference Range Interpretation Comments Urine Bilirubin (test code = 1978-6) NEGATIVE NEGATIVE [facility] AzleUrine Nxznr2663-60-09 13:46:00* Test Item Value Reference Range Interpretation Comments Urine Blood (test code = 52957-1) NEGATIVE NEGATIVE [facility]leUrine ZSA4370-88-22 13:46:00* Test Item Value Reference Range Interpretation Comments Urine WBC (test code = 5821-4) 0-5 0-5 [facility]leU[facility] NRJ6091-17-63 13:46:00* Test Item Value Reference Range Interpretation Comments Urine RBC (test code = 77608-0) NONE 0-5 [facility]leU[facility] Pbulrxux5537-08-22 13:46:00* Test Item Value Reference Range Interpretation Comments Urine Bacteria (test code = 56407-8) MODERATE NONE H [facility]leUrine Epithelial Kknue5376-24-17 13:46:00 * Test Item Value Reference Range Interpretation Comments Urine Epithelial Cells (test code = 43472-7) NONE NONE [facility] Amorphous Cpqlncuv1703-70-95 13:46:00* Test Item Value Reference Range Interpretation Comments Urine Amorphous Sediment (test code = 8246-1) FEW FEW [facility]leU[facility] Fmgvg6730-55-99 13:46:00* Test Item Value Reference Range Interpretation Comments Urine Color (test code = 5778-6) YELLOW YELLOW [facility] Nerfuod4936-82-16 13:46:00* Test Item Value Reference Range Interpretation Comments Urine Clarity (test code = 23212-6) SL CLOUDY CLEAR [facility] Specific Lsqttnm5404-82-85 13:46:00 * Test Item Value Reference Range Interpretation Comments Urine Specific [place] (test code = 5811-5) 1.015 1.010-1.02 5 [facility]leUrine fH4820-65-55 13:46:00* Test Item Value Reference Range Interpretation Comments Urine pH (test code = 04532-9) 6 5-7 [facility] Leukocyte Xmonopng8482-97-82 13:46:00* Test Item Value Reference Range Interpretation Comments Urine Leukocyte Esterase (test code = 5799-2) NEGATIVE NEGATIVE [facility] Hingkve5894-93-55 13:46:00* Test Item Value Reference Range Interpretation Comments Urine Nitrite (test code = 46996-9) NEGATIVE NEGATIVE [facility] Rwyxfoa8506-15-09 13:46:00* Test Item Value Reference Range Interpretation Comments Urine Protein (test code = 5804-0) NEGATIVE NEGATIVE [facility] Glucose (UA)2018-07-09 13:46:00* Test Item Value Reference Range Interpretation Comments Urine Glucose (UA) (test code = 2349-9) NEGATIVE NEGATIVE [facility]leU[facility] Uezosct1785-80-96 13:46:00* Test Item Value Reference Range Interpretation Comments Urine Ketones (test code = 07040-0) NEGATIVE NEGATIVE [facility]leUrine Rannxobakrwp4356-09-96 13:46:00* Test Item Value Reference Range Interpretation Comments Urine Urobilinogen (test code = 15177-0) 0.2 0.2-1 [facility]leUrine Autlamrha7137-78-91 13:46:00* Test Item Value Reference Range Interpretation Comments Urine Bilirubin (test code = 1978-6) NEGATIVE NEGATIVE [facility] Grlkm2485-00-37 13:46:00* Test Item Value Reference Range Interpretation Comments Urine Blood (test code = 63929-6) NEGATIVE NEGATIVE [facility] HYV5687-96-81 13:46:00* Test Item Value Reference Range Interpretation Comments Urine WBC (test code = 5821-4) 0-5 0-5 [facility]leU[facility] DIO7362-24-61 13:46:00* Test Item Value Reference Range Interpretation Comments Urine RBC (test code = 15071-6) NONE 0-5 [facility] Pwwcxnha4303-31-54 13:46:00* Test Item Value Reference Range Interpretation Comments Urine Bacteria (test code = 02464-8) MODERATE NONE H [facility]leUrine Epithelial Ejszd3856-04-56 13:46:00 * Test Item Value Reference Range Interpretation Comments Urine Epithelial Cells (test code = 34274-3) NONE NONE [facility] Amorphous Frxtohvz2241-37-61 13:46:00* Test Item Value Reference Range Interpretation Comments Urine Amorphous Sediment (test code = 8246-1) FEW FEW [facility]
[2020-02-18] MEDS ORDERED: FUROSEMIDE INJ 10 MG/ML 2 ML VIAL IV ONE (19:45)
[2020-02-18] MEDS ORDERED: ACETAMINOPHEN 325 MG TAB PO ONE (19:45)
[2020-02-18] MEDS: LORATADINE 10 MG TAB PO PRN (21:23)
[2020-02-19] VITALS (8 sets, daily range): BP systolic 136–154; BP diastolic 59–92
[2020-02-19] MEDS ORDERED: SODIUM CHLORIDE 0.9% 250ML 250 ML ONE ×2 (00:05→08:55)
[2020-02-19] MEDS: PIPER-TAZ 3.375 GM 50 ML IV SCH ×4 (02:13→21:34)
[2020-02-19] MEDS: DEXAMETHASONE 4 MG TAB PO SCH (06:31)
--- NOTE | 2020-02-19 06:31 | NUR ---
picc line dressing changed
[2020-02-19] MEDS: IPRATROPIUM/ALBUTEROL SULFATE 4 GM INH INH SCH ×2 (07:00→19:00)
--- NOTE | 2020-02-19 07:00 | NUR ---
RECEIVED BEDSIDE SHIFT REPORT FROM OFF GOING NIGHT NURSE. PATIENT IN STABLE CONDITION, NO S/S OF DISTRESS NOTED. RESPIRATIONS EVEN AND NONLABORED, ON OXYGEN 4LPM/NC. PATENT ABLE TO VOICE NEEDS. TELEMETRY APPLIED. IV SITE ASYMPTOMATIC AND PATENT, TRANSPARENT DRESSING C/D/I. BED ALARM APPLIED. BED IN LOWEST POSITION AND LOCKED, SIDE RAILS X 2, NONSKID SOCKS APPLIED. CALL LIGHT WITHIN REACH.
[2020-02-19 07:04] LABS: BASOPHILS % 0.2 % (0.0-1.0); HEMATOCRIT 32.3 % (34.2-44.1); HEMOGLOBIN 9.2 g/dL (12.0-16.0); LYMPHOCYTES % 15.5 % (18.0-39.1); MEAN CORPUSCULAR HEMOGLOBIN 27.9 pg (28-32); MEAN CORPUSCULAR HGB CONC 28.5 g/dL (31-35); MEAN CORPUSCULAR VOLUME 97.9 fL (81-99); MONOCYTES # (AUTO) 0.8 (0.2-0.8); MONOCYTES % 12.4 % (4.4-11.3); NEUTROPHILS # (AUTO) 4.6 (2.1-6.9); NEUTROPHILS % 70.4 % (38.7-80.0); PLATELET COUNT 136 x10e3/uL (140-360); RED CELL DISTRIBUTION WIDTH 14.9 % (11.7-14.4)
[2020-02-19 07:22] LABS: ANION GAP 12.8 mmol/L (8-16); CREATININE, SERUM 1.05 mg/dL (0.57-1.11); POTASSIUM 3.8 mmol/L (3.5-5.1)
[2020-02-19] MEDS: FAMOTIDINE 20 MG TAB PO SCH ×2 (07:30→16:30)
[2020-02-19] MEDS: INSULIN LISPRO 100 UNIT/1 ML 3ML VIAL SQ SCH ×4 (07:30→21:33)
[2020-02-19] MEDS: FLUTICASONE PROPIONATE NASAL SPRAY NS SCH ×2 (09:00→17:21)
[2020-02-19] MEDS: BENZONATATE 100 MG CAP PO SCH ×3 (09:00→21:34)
[2020-02-19] MEDS: ZINC SULFATE 220 MG CAP PO SCH (09:00)
[2020-02-19] MEDS: ASCORBIC ACID 500 MG TAB PO SCH ×2 (09:00→17:21)
[2020-02-19] MEDS ORDERED: POTASSIUM CHLORIDE 10MEQ EA PO ONE (09:30)
[2020-02-19] MEDS: FUROSEMIDE INJ 10 MG/ML 2 ML VIAL IV SCH (09:30)
[2020-02-19] MEDS: IRON SUCROSE 200 MG in SODIUM CHLORIDE 0.9% 100 ML 100 ML IV SCH (11:17)
--- NOTE | 2020-02-19 12:04 | Progress Note ---
DATE: SUBJECTIVE: Ms. Pedersen states she is feeling better. Her shortness of breath is better. She is coughing, is productive with yellow sputum. Her urine showing Streptococcus viridans. REVIEW OF SYSTEMS: Otherwise unremarkable at present time except for the shortness of breath and weakness. PHYSICAL EXAMINATION: GENERAL: Currently alert. VITAL SIGNS: Stable, afebrile. Temperature 98.8, heart rate 74, and O2 saturation 99 on 4 L, which is her baseline. MEDICATION LIST: She is on vitamin C, Tessalon Perles, zinc, Zosyn, and Decadron 3 mg. IMPRESSION: COPD exacerbation, pneumonia aspiration/community-acquired, seems to be improving, to finish 8 days of Zosyn. We will discontinue azithromycin after a total of 3 days. Stable from Infectious Disease point of view. Steroids per Pulmonary. MD MARIA VICTORIA Simpson/KEIRY /[phone]
[2020-02-19] MEDS ORDERED: ONDANSETRON HCL 4 MG ORAL DISINTEGRATING TAB PO PRN (12:15)
--- NOTE | 2020-02-19 19:46 | NUR ---
COMPLETED BEDSIDE SHIFT REPORT AND ROUNDING WITH ON COMING NIGHT NURSE. PATIENT IN STABLE CONDITION, NO S/S OF DISTRESS NOTED. RESPIRATIONS EVEN AND NONLABORED, ON OXYGEN 4LPM/NC. PATENT ABLE TO VOICE NEEDS. TELEMETRY APPLIED. IV SITE ASYMPTOMATIC AND PATENT, TRANSPARENT DRESSING C/D/I. BED ALARM APPLIED. BED IN LOWEST POSITION AND LOCKED, SIDE RAILS X 2, NONSKID SOCKS APPLIED. CALL LIGHT WITHIN REACH.
--- NOTE | 2020-02-19 21:43 | Diagnostic Imaging Report ---
EXAMINATION: CHEST XRAY LINE PLACEMENT INDICATION: picc line placement COMPARISON: Multiple prior chest radiograph including most recent on 02/17/2020. FINDINGS: TUBES and LINES: Interval placement of right PICC which terminates at the cavoatrial junction. LUNGS: No interval change in radiographic appearance of the lungs characterized by bibasilar opacities. PLEURA: No pleural effusion or pneumothorax. HEART AND MEDIASTINUM: The cardiomediastinal silhouette is unremarkable. BONES AND SOFT TISSUES: No acute osseous lesion. Soft tissues are unremarkable. UPPER ABDOMEN: No free air under the diaphragm. IMPRESSION: 1. Interval placement of right PICC which terminates at the cavoatrial junction. 2. No interval change in radiographic appearance of the lungs characterized by bibasilar opacities. This may represent subsegmental atelectasis and/or multifocal pneumonia in the proper clinical context. Signed by: Andrew Spann MD on 02/19/2020 9:40 PM
[2020-02-19] MEDS ORDERED: SODIUM CHLORIDE 0.9% 50ML 0 ML ONE (22:50)
[2020-02-19] MEDS ORDERED: IOPAMIDOL 370 MG/ML 200 ML INFUS..BTL INJ ONE (22:50)
[2020-02-20] VITALS (8 sets, daily range): BP systolic 114–149; BP diastolic 60–82
[2020-02-20] MEDS: IPRATROPIUM/ALBUTEROL SULFATE 4 GM INH INH SCH (01:00)
[2020-02-20] MEDS: PIPER-TAZ 3.375 GM 50 ML IV SCH ×4 (03:38→22:20)
[2020-02-20] MEDS: DEXAMETHASONE 4 MG TAB PO SCH (05:36)
[2020-02-20 05:40] LABS: BASOPHILS % 0.2 % (0.0-1.0); EOSINOPHILS # (AUTO) 0.1 (0.0-0.4); HEMATOCRIT 29.6 % (34.2-44.1); HEMOGLOBIN 8.7 g/dL (12.0-16.0); LYMPHOCYTES # (AUTO) 1.2 (1.0-3.2); LYMPHOCYTES % 24.3 % (18.0-39.1); MEAN CORPUSCULAR HEMOGLOBIN 28.8 pg (28-32); MEAN CORPUSCULAR HGB CONC 29.4 g/dL (31-35); MONOCYTES # (AUTO) 0.5 (0.2-0.8); NEUTROPHILS % 61.5 % (38.7-80.0); PLATELET COUNT 134 x10e3/uL (140-360); RED BLOOD COUNT 3.02 x10e6/uL (3.6-5.1); RED CELL DISTRIBUTION WIDTH 14.7 % (11.7-14.4)
[2020-02-20 06:11] LABS: ANION GAP 13.6 mmol/L (8-16); BLOOD UREA NITROGEN 18 mg/dL (7-26); BUN/CREATININE RATIO 22 (6-25); CALCIUM 8.5 mg/dL (8.4-10.2); CARBON DIOXIDE 34 mmol/L (22-29); CHLORIDE 104 mmol/L (98-107); CREATININE, SERUM 0.83 mg/dL (0.57-1.11); EST GLOMERULAR FILTRATION RATE > 60 ML/MIN (60-); GLUCOSE 80 mg/dL (74-118); POTASSIUM 3.6 mmol/L (3.5-5.1); SODIUM 148 mmol/L (136-145)
[2020-02-20] MEDS: INSULIN LISPRO 100 UNIT/1 ML 3ML VIAL SQ SCH ×4 (07:30→22:19)
--- NOTE | 2020-02-20 08:46 | Diagnostic Imaging Report ---
CT Abdomen And Pelvis with Intravenous Contrast INDICATION: ^weight loss, anemia, liver cirrhosis ^20200220 ^0810 TECHNIQUE: Thin collimation axial images obtained from the diaphragm to the level of the pubic symphysis following the uneventful administration of 100 cc of low osmolar, nonionic intravenous contrast. Dose reduction techniques used: Automated exposure control, adjustment of the mAs and/or kVp according to patient size, standardized low-dose protocol, and/or iterative reconstruction technique. RADIATION DOSE: Total DLP: 620.97 Estimated effective dose: (DLP x 0.015 x size factor) mSv CTDIvol has been reviewed. It is below the limits set by the Radiation Protocol Committee (RPC). COMPARISON: CT chest 02/16/2020. CT abdomen/pelvis 04/23/2019 ABDOMEN FINDINGS: Lung Bases: Mild hyperinflation. Moderate-sized right Bochdalek hernia containing fat is stable. Liver: Lobulated contours suggestive of cirrhosis. No evidence for mass. Gallbladder: Absent. Trace central intrahepatic bile duct distention. The common bile duct measures 0.8 cm and comes to a tight taper at the ampulla. Pancreas: Normal attenuation without mass or ductal dilatation. Spleen: Normal in size. No evidence of mass.. Adrenal Glands: No evidence for mass. Kidneys: Right: Normal enhancement. Multiple low attenuating lesions in the right kidney suggestive of cysts. No calculus. No hydronephrosis. Left: Normal enhancement. Punctate calculus in the lower pole. Several scattered low attenuating lesions suggestive of cysts. Lymph Nodes: No lymphadenopathy. Aorta: Tortuous but not aneurysmally dilated with scattered calcified and noncalcified atherosclerotic plaque. Portal vein: Measures 1.5 cm in diameter and is patent. There are multiple varices in the upper abdomen PELVIS FINDINGS: Bowel: Stomach: Collapsed and is normal in appearance. Small Bowel: Normal in caliber with normal wall thickness. Large Bowel: Diffuse diverticulosis coli. No associated inflammation. No focal mural thickening. Appendix: Not visualized. Bladder: Well-distended and normal. The uterus is atrophic. No adnexal mass Peritoneum/retroperitoneum: Small amount of fluid at the lateral aspect of the right hepatic lobe. No free fluid in the pelvis. No free air. Bones: Mild to moderate degenerative changes of the spine. Mild stable dextroscoliosis. No focal osseous lesions. Soft tissues: Solid mass in the right breast is redemonstrated. No mass or hernia in the visualized abdomen or pelvis. IMPRESSION: 1. Cirrhosis and portal hypertension with varices. No hepatic mass to suggest HCC. Trace perihepatic ascites. 2. Diverticulosis coli No evidence for bowel obstruction or inflammation. 3. Right breast mass remains concerning for neoplasm. 4. Cholecystectomy. Mildly prominent biliary tree likely secondary to reservoir effect. 5. Bilateral renal cortical lesions suggestive of cysts. This could be confirmed with renal ultrasound on an outpatient basis. Tiny nonobstructing left intrarenal calculus. Signed by: Dr. Mayito Kerns MD on 02/20/2020 8:43 AM
[2020-02-20] MEDS ORDERED: IOPAMIDOL 370 MG/ML 200 ML INFUS..BTL INJ ONE (08:51)
[2020-02-20] MEDS ORDERED: SODIUM CHLORIDE 0.9% 50ML 50 ML ONE (08:51)
[2020-02-20] MEDS ORDERED: SODIUM CHLORIDE 0.9% 250ML 250 ML ONE (10:07)
[2020-02-20] MEDS ORDERED: ALBUTEROL/IPRATROPIUM 3 ML NEB NEB PRN (10:15)
[2020-02-20] MEDS: AZITHROMYCIN 250 MG TAB PO SCH (10:18)
[2020-02-20] MEDS: BENZONATATE 100 MG CAP PO SCH ×3 (10:18→22:20)
[2020-02-20] MEDS: FUROSEMIDE INJ 10 MG/ML 2 ML VIAL IV SCH (10:18)
[2020-02-20] MEDS: FAMOTIDINE 20 MG TAB PO SCH ×2 (10:18→17:11)
[2020-02-20] MEDS: ASCORBIC ACID 500 MG TAB PO SCH ×2 (10:18→17:11)
[2020-02-20] MEDS: ZINC SULFATE 220 MG CAP PO SCH (10:18)
[2020-02-20] MEDS: FLUTICASONE PROPIONATE NASAL SPRAY NS SCH ×2 (10:18→17:11)
[2020-02-20] MEDS: ALBUTEROL/IPRATROPIUM 3 ML NEB NEB SCH ×2 (10:45→20:45)
[2020-02-20] MEDS: IRON SUCROSE 200 MG in SODIUM CHLORIDE 0.9% 100 ML 100 ML IV SCH (12:03)
--- NOTE | 2020-02-20 15:38 | Progress Note ---
DATE: Pulmonary followup. SUBJECTIVE: The patient is breathing well. No distress. Still having cough, on IV Zosyn. Strep viridans in the urine, which is being treated. PHYSICAL EXAMINATION: VITAL SIGNS: Temperature 97.7, pulse of 80, blood pressure 142/60. CHEST: Clear. ABDOMEN: Soft. GENERAL: Awake, and alert. LABORATORY DATA: Reviewed. ASSESSMENT/PLAN: Ms. Pdeersen is an 80-year-old female. She has pneumonia which is improving. Breast mass on the CT, which I discussed with her. She will need an outpatient workup. CT abdomen pelvis is showing liver cirrhosis and portal hypertension. The patient will need home oxygen. The patient may need home oxygen. MD SRINATH Garcia/KEIRY /[id number]
--- NOTE | 2020-02-20 19:28 | NUR ---
Patient received sitting up in bed. AAO x 3. Patient had no complaints of pain. Respirations even and non-labored on 4L NC. Safety measures in place. Patient instructed to call for assistance when needed. Call light within reach.
[2020-02-21] VITALS (8 sets, daily range): BP systolic 123–162; BP diastolic 57–83
[2020-02-21] MEDS: ALBUTEROL/IPRATROPIUM 3 ML NEB NEB SCH ×5 (02:25→19:50)
[2020-02-21] MEDS: PIPER-TAZ 3.375 GM 50 ML IV SCH ×4 (02:30→21:45)
[2020-02-21] MEDS: DEXAMETHASONE 4 MG TAB PO SCH (06:00)
[2020-02-21] MEDS: INSULIN LISPRO 100 UNIT/1 ML 3ML VIAL SQ SCH ×4 (07:30→21:00)
--- NOTE | 2020-02-21 07:44 | NUR ---
INFECTIOUS DISEASE PROGRESS NOTE DR. DEMIAN MEDINA HISTORY OF PRESENT ILLNESS: Ms. Valerie Pedersen is an 80-year-old, who has history of COPD, she was at home at 4 L of oxygen. Apparently, her son found her naked, confused. The patient was brought here. She was given IV fluid with IV antibiotic. She is currently alert and oriented. She remains forgetful, but she is alert and oriented. She is feeling better. She did have fever when she first came. Also, her lactic acid was elevated at 3.2. The patient is currently in bed, comfortable. The patient is telling me she has history of COPD, history of allergic rhinitis, and also history of diabetes. PAST MEDICAL HISTORY: Severe COPD on 4 L, obesity, and the patient seemed to be forgetful. ROS: +fatigue PERTINENT ROS NEG UNLESS OTHERWISE DOCUMENTED ALLERGIES: NKA. LABORATORY DATA: per chart PHYSICAL EXAMINATION: GENERAL: Currently alert and oriented. Does not seem to be in acute distress. VITAL SIGNS: Stable, currently afebrile. HEENT: She is not icteric. NECK: Supple. no JVD CHEST: Crackles bilateral. HEART: S1 and S2. ABDOMEN: Soft. Bowel sounds present. EXTREMITIES: No edema. SKIN: No rash. NEURO: no large neuro deficits IMPRESSION: Sepsis on admission, seems to be better altered mental status secondary to sepsis pneumonia, urinary tract infection hypernatremia; acute kidney injury; diabetes mellitus; liver cirrhosis; congestive heart failure; chronic obstructive pulmonary disease exacerbation IMPRESSION: 1. Cirrhosis and portal hypertension with varices. No hepatic mass to suggest HCC. Trace perihepatic ascites. 2. Diverticulosis coli No evidence for bowel obstruction or inflammation. 3. Right breast mass remains concerning for neoplasm. 4. Cholecystectomy. Mildly prominent biliary tree likely secondary to reservoir effect. 5. Bilateral renal cortical lesions suggestive of cysts. This could be confirmed with renal ultrasound on an outpatient basis. Tiny nonobstructing left intrarenal calculus. RECOMMENDATIONS: Zosyn x7 days dexamethasone azithromycin for 3 to 5 days On 4LPM Demian Medina M.D
[2020-02-21] MEDS: FLUTICASONE PROPIONATE NASAL SPRAY NS SCH ×2 (08:44→18:04)
[2020-02-21] MEDS: BENZONATATE 100 MG CAP PO SCH ×3 (08:44→21:46)
[2020-02-21] MEDS: FAMOTIDINE 20 MG TAB PO SCH ×2 (08:44→18:04)
[2020-02-21] MEDS: ZINC SULFATE 220 MG CAP PO SCH (08:45)
[2020-02-21] MEDS: AZITHROMYCIN 250 MG TAB PO SCH (08:45)
[2020-02-21] MEDS: ASCORBIC ACID 500 MG TAB PO SCH ×2 (08:45→18:04)
[2020-02-21] MEDS: FUROSEMIDE INJ 10 MG/ML 2 ML VIAL IV SCH (09:12)
[2020-02-21] MEDS: IRON SUCROSE 200 MG in SODIUM CHLORIDE 0.9% 100 ML 100 ML IV SCH (11:49)
--- NOTE | 2020-02-21 19:26 | NUR ---
Patient received lying in bed. AAO x 3. No acute distress noted. Safety measures in place. Patient instructed to call for assistance when needed. Call light within reach.
[2020-02-21] MEDS: FERROUS SULFATE 325 MG TAB PO SCH (21:45)
[2020-02-22] VITALS (10 sets, daily range): BP systolic 121–153; BP diastolic 69–91
[2020-02-22] MEDS: ALBUTEROL/IPRATROPIUM 3 ML NEB NEB SCH ×4 (01:38→19:38)
[2020-02-22] MEDS: PIPER-TAZ 3.375 GM 50 ML IV SCH ×4 (03:00→20:59)
[2020-02-22 05:37] LABS: BASOPHILS % 0.2 % (0.0-1.0); EOSINOPHILS # (AUTO) 0.1 (0.0-0.4); EOSINOPHILS % 1.8 % (0.0-6.0); HEMATOCRIT 29.8 % (34.2-44.1); HEMOGLOBIN 8.6 g/dL (12.0-16.0); LYMPHOCYTES % 20.3 % (18.0-39.1); MEAN CORPUSCULAR HEMOGLOBIN 27.7 pg (28-32); MEAN CORPUSCULAR HGB CONC 28.9 g/dL (31-35); MEAN CORPUSCULAR VOLUME 96.1 fL (81-99); MONOCYTES # (AUTO) 0.5 (0.2-0.8); MONOCYTES % 8.9 % (4.4-11.3); NEUTROPHILS # (AUTO) 3.4 (2.1-6.9); PLATELET COUNT 130 x10e3/uL (140-360)
[2020-02-22] MEDS: DEXAMETHASONE 4 MG TAB PO SCH (05:56)
[2020-02-22 06:04] LABS: ANION GAP 11.4 mmol/L (8-16); BLOOD UREA NITROGEN 17 mg/dL (7-26); BUN/CREATININE RATIO 21 (6-25); CALCIUM 8.3 mg/dL (8.4-10.2); CARBON DIOXIDE 37 mmol/L (22-29); CHLORIDE 103 mmol/L (98-107); EST GLOMERULAR FILTRATION RATE > 60 ML/MIN (60-); GLUCOSE 101 mg/dL (74-118); POTASSIUM 3.4 mmol/L (3.5-5.1); SODIUM 148 mmol/L (136-145)
--- NOTE | 2020-02-22 06:43 | NUR ---
Patient resting comfortably. Walking rounds done. Shift report given to oncoming nurse regarding patient's status.
[2020-02-22] MEDS: INSULIN LISPRO 100 UNIT/1 ML 3ML VIAL SQ SCH ×4 (07:30→21:25)
[2020-02-22] MEDS: FLUTICASONE PROPIONATE NASAL SPRAY NS SCH ×2 (08:07→17:39)
[2020-02-22] MEDS: ZINC SULFATE 220 MG CAP PO SCH (08:10)
[2020-02-22] MEDS: FAMOTIDINE 20 MG TAB PO SCH ×2 (08:10→17:39)
[2020-02-22] MEDS: AZITHROMYCIN 250 MG TAB PO SCH (08:10)
[2020-02-22] MEDS: FERROUS SULFATE 325 MG TAB PO SCH ×3 (08:10→21:03)
[2020-02-22] MEDS: ASCORBIC ACID 500 MG TAB PO SCH ×2 (08:10→17:39)
[2020-02-22] MEDS: BENZONATATE 100 MG CAP PO SCH ×3 (08:10→21:02)
[2020-02-22] MEDS ORDERED: POTASSIUM CHLORIDE 10MEQ EA PO ONE (10:00)
[2020-02-22] MEDS: IRON SUCROSE 200 MG in SODIUM CHLORIDE 0.9% 100 ML 100 ML IV SCH (11:26)
[2020-02-22] MEDS ORDERED: POTASSIUM CHLORIDE 20 MEQ TAB CR PO ONE (11:35)
--- NOTE | 2020-02-22 12:58 | NUR ---
INFECTIOUS DISEASE PROGRESS NOTE DR. DEMIAN MEDINA HISTORY OF PRESENT ILLNESS: Ms. Valerie Pedersen is an 80-year-old, who has history of COPD, she was at home at 4 L of oxygen. Apparently, her son found her naked, confused. The patient was brought here. She was given IV fluid with IV antibiotic. She is currently alert and oriented. She remains forgetful, but she is alert and oriented. She is feeling better. She did have fever when she first came. Also, her lactic acid was elevated at 3.2. The patient is currently in bed, comfortable. The patient is telling me she has history of COPD, history of allergic rhinitis, and also history of diabetes. PAST MEDICAL HISTORY: Severe COPD on 4 L, obesity, and the patient seemed to be forgetful. ROS: +fatigue PERTINENT ROS NEG UNLESS OTHERWISE DOCUMENTED ALLERGIES: NKA. LABORATORY DATA: per chart PHYSICAL EXAMINATION: GENERAL: Currently alert and oriented. Does not seem to be in acute distress. VITAL SIGNS: Stable, currently afebrile. HEENT: She is not icteric. normocephalic, atraumatic NECK: Supple. no JVD CHEST: Crackles bilateral. symmetric expansion HEART: S1 and S2. no s3, s4 ABDOMEN: Soft. Bowel sounds present. EXTREMITIES: No edema. SKIN: No rash. no joint swelling NEURO: no large neuro deficits IMPRESSION: Sepsis on admission, seems to be better altered mental status secondary to sepsis COPD exacerbation pneumonia urinary tract infection hypernatremia, acute kidney injury diabetes mellitus liver cirrhosis congestive heart failure; IMPRESSION: 1. Cirrhosis and portal hypertension with varices. No hepatic mass to suggest HCC. Trace perihepatic ascites. 2. Diverticulosis coli No evidence for bowel obstruction or inflammation. 3. Right breast mass remains concerning for neoplasm. 4. Cholecystectomy. Mildly prominent biliary tree likely secondary to reservoir effect. 5. Bilateral renal cortical lesions suggestive of cysts. This could be confirmed with renal ultrasound on an outpatient basis. Tiny nonobstructing left intrarenal calculus. RECOMMENDATIONS: Zosyn x7 days continues on decadron Kimmie Hernandez MSN, AIRCRAFT [employer]TER, AGACNP-BC Demian Medina M.D
--- NOTE | 2020-02-22 17:20 | NUR ---
Nutrition Screen Note RD Recommendation for Physician: - Recommend adding 2 gm Na restriction to diet, texture per MD/ELEVATOR OPERATOR FREIGHT. Plan of Care: RD following, monitoring for tolerance and adequacy Nutrition reason for involvement: LOS Primary Diagnose(s): UTI, severe sepsis PMH: COPD, obesity, DM, cholecystectomy Ht: 71 in Wt: 160 lb BMI: 22.3 kg/m2 IBW: [address] Assessment: (02/21) 80 YOF admitted for a UTI and severe sepsis, evaluated today for LOS. Pt sleeping at time of visits, did not respond to greeting upon entry to room. Pt appears well nourished. No reported poor intake or wt loss at admit. Pt with 75% meal intake per chart. No GI distress recorded, last BM 02/20. Chart reviewed, pt with cirrhosis and portal HTN with varices, R breast mass concerning for neoplasm, and diverticulosis per MD notes. Labs and meds reviewed. Will continue to monitor. Current Diet: 1800 ADA, mechanical soft Malnutrition Evaluation (02/22/20) The patient does not meet criteria for a specified degree of malnutrition at this time. Will re-evaluate at follow-up as appropriate. Diet Education Needs Assessment: Diet education not indicated. Diet tolerance: tolerating po Nutrition Care Level: low Signed: Vianey Ruby RD, LD, [facility]
--- NOTE | 2020-02-22 19:12 | NUR ---
Received the patient in report.lyeing in the bed.assessment done.no resp distress noted.no pain voiced.bed alarm on.phone and call light within reach.instructed to call for assistance as needed.
[2020-02-23] VITALS (8 sets, daily range): BP systolic 118–150; BP diastolic 61–87
[2020-02-23] MEDS: ALBUTEROL/IPRATROPIUM 3 ML NEB NEB SCH ×3 (01:20→19:45)
[2020-02-23] MEDS: PIPER-TAZ 3.375 GM 50 ML IV SCH ×2 (03:00→10:30)
[2020-02-23] MEDS: DEXAMETHASONE 4 MG TAB PO SCH (06:20)
--- NOTE | 2020-02-23 07:25 | NUR ---
REPORT GIVEN TO ONCOMING RN.STABLE CONDITION.
[2020-02-23] MEDS: INSULIN LISPRO 100 UNIT/1 ML 3ML VIAL SQ SCH ×4 (07:30→20:29)
[2020-02-23] MEDS: FERROUS SULFATE 325 MG TAB PO SCH ×3 (10:30→20:09)
[2020-02-23] MEDS: ASCORBIC ACID 500 MG TAB PO SCH ×2 (10:30→16:45)
[2020-02-23] MEDS: FLUTICASONE PROPIONATE NASAL SPRAY NS SCH ×2 (10:30→16:45)
[2020-02-23] MEDS: AZITHROMYCIN 250 MG TAB PO SCH (10:30)
[2020-02-23] MEDS: BENZONATATE 100 MG CAP PO SCH (10:30)
[2020-02-23] MEDS: FAMOTIDINE 20 MG TAB PO SCH ×2 (10:30→16:45)
[2020-02-23] MEDS: ZINC SULFATE 220 MG CAP PO SCH (10:30)
--- NOTE | 2020-02-23 14:06 | NUR ---
INFECTIOUS DISEASE PROGRESS NOTE DR. DEMIAN MEDINA HISTORY OF PRESENT ILLNESS: Ms. Valerie Pedersen is an 80-year-old, who has history of COPD, she was at home at 4 L of oxygen. Apparently, her son found her naked, confused. The patient was brought here. She was given IV fluid with IV antibiotic. She is currently alert and oriented. She remains forgetful, but she is alert and oriented. She is feeling better. She did have fever when she first came. Also, her lactic acid was elevated at 3.2. The patient is currently in bed, comfortable. The patient is telling me she has history of COPD, history of allergic rhinitis, and also history of diabetes. PAST MEDICAL HISTORY: Severe COPD on 4 L, obesity, and the patient seemed to be forgetful. ROS: +fatigue PERTINENT ROS NEG UNLESS OTHERWISE DOCUMENTED ALLERGIES: NKA. LABORATORY DATA: per chart PHYSICAL EXAMINATION: GENERAL: Currently alert and oriented. Does not seem to be in acute distress. VITAL SIGNS: Stable, currently afebrile. HEENT: She is not icteric. normocephalic, atraumatic NECK: Supple. no JVD CHEST: Crackles bilateral. symmetric expansion HEART: S1 and S2. no s3, s4 ABDOMEN: Soft. Bowel sounds present. EXTREMITIES: No edema. SKIN: No rash. no joint swelling NEURO: no large neuro deficits IMPRESSION: Sepsis on admission, seems to be better altered mental status secondary to sepsis COPD exacerbation pneumonia urinary tract infection hypernatremia, acute kidney injury diabetes mellitus liver cirrhosis congestive heart failure; IMPRESSION: 1. Cirrhosis and portal hypertension with varices. No hepatic mass to suggest HCC. Trace perihepatic ascites. 2. Diverticulosis coli No evidence for bowel obstruction or inflammation. 3. Right breast mass remains concerning for neoplasm. 4. Cholecystectomy. Mildly prominent biliary tree likely secondary to reservoir effect. 5. Bilateral renal cortical lesions suggestive of cysts. This could be confirmed with renal ultrasound on an outpatient basis. Tiny nonobstructing left intrarenal calculus. RECOMMENDATIONS: Zosyn x7 days, stopped stop azithromycin, ordered for 3 days continues on decadron per pulmo monitor off antibiotics Kimmie Hernandez MSN, FERMENTING CELLARS SUPERVISOR, AGACNP-BC Demian Medina M.D
--- NOTE | 2020-02-23 16:49 | NUR ---
ORDERS FOR HOME HEALTH REC'D CHOICE LETTER ON CHART FOR [facility] [phone] CLINICALS FAXED TO [phone] CONFIRMATION REC'D PLAN DC HOME TOMORROW PER DR CHAKRABORTY CM SPOKE WITH SON CHRISTINE AT [phone] AND NOTIFIED HIM OF PLANNED DC HOME TOMORROW IMM SIGNED AND ON CHART COPY TO PT
--- NOTE | 2020-02-23 19:10 | NUR ---
patient received awake, alert, lying quietly in bed. no c/o pain noted. / in use. pm assessment complete. noted at the bedside. patient instructed to call for assistance when needed. Addendum: 02/23/20 at 1929 by Maggie Damon RN son at the bedside... not the .
[2020-02-23] MEDS: BENZONATATE 100 MG CAP PO PRN (20:14)
[2020-02-24] VITALS: BP 138/62
[2020-02-24] MEDS: ALBUTEROL/IPRATROPIUM 3 ML NEB NEB SCH ×3 (01:15→13:00)
[2020-02-24 04:00] VITALS: BP 139/99
[2020-02-24 05:10] LABS: BASOPHILS % 0.2 % (0.0-1.0); EOSINOPHILS # (AUTO) 0.1 (0.0-0.4); EOSINOPHILS % 2.1 % (0.0-6.0); HEMATOCRIT 32.3 % (34.2-44.1); HEMOGLOBIN 9.3 g/dL (12.0-16.0); LYMPHOCYTES % 18.6 % (18.0-39.1); MEAN CORPUSCULAR HEMOGLOBIN 28.1 pg (28-32); MEAN CORPUSCULAR HGB CONC 28.8 g/dL (31-35); MEAN CORPUSCULAR VOLUME 97.6 fL (81-99); MONOCYTES # (AUTO) 0.4 (0.2-0.8); MONOCYTES % 7.8 % (4.4-11.3); NEUTROPHILS # (AUTO) 3.5 (2.1-6.9); PLATELET COUNT 121 x10e3/uL (140-360); RED BLOOD COUNT 3.31 x10e6/uL (3.6-5.1); RED CELL DISTRIBUTION WIDTH 15.9 % (11.7-14.4)
[2020-02-24] MEDS: DEXAMETHASONE 4 MG TAB PO SCH (05:17)
[2020-02-24 05:31] LABS: BLOOD UREA NITROGEN 18 mg/dL (7-26); BUN/CREATININE RATIO 23 (6-25); CALCIUM 8.3 mg/dL (8.4-10.2); CARBON DIOXIDE 34 mmol/L (22-29); CHLORIDE 106 mmol/L (98-107); EST GLOMERULAR FILTRATION RATE > 60 ML/MIN (60-); GLUCOSE 98 mg/dL (74-118); SODIUM 144 mmol/L (136-145)
[2020-02-24 07:28] LABS: HYPOCHROMASIA MOD
[2020-02-24 07:29] LABS: ANISOCYTOSIS FEW; PLATELET ESTIMATE SLIGHTLY DECREASED; PLATELET MORPHOLOGY COMMENT NORMAL; POLYCHROMASIA FEW; RBC MORPHOLOGY COMMENT ABNORMAL
[2020-02-24] MEDS: ZINC SULFATE 220 MG CAP PO SCH (08:53)
[2020-02-24] MEDS: FLUTICASONE PROPIONATE NASAL SPRAY NS SCH (08:53)
[2020-02-24] MEDS: ASCORBIC ACID 500 MG TAB PO SCH (08:53)
[2020-02-24] MEDS: FERROUS SULFATE 325 MG TAB PO SCH (08:53)
[2020-02-24] MEDS: FAMOTIDINE 20 MG TAB PO SCH (08:53)
[2020-02-24] MEDS: BENZONATATE 100 MG CAP PO PRN (08:57)
[2020-02-24] MEDS: INSULIN LISPRO 100 UNIT/1 ML 3ML VIAL SQ SCH ×2 (09:00→12:36)
[2020-02-24 09:07] VITALS: BP 123/93
[2020-02-24 09:34] VITALS: BP 123/93
[2020-02-24] MEDS ORDERED: TESSALON PERLE100 MG PO (10:20)
[2020-02-24] MEDS ORDERED: TRELEGY ELLIPT1 EACH INH (10:20)
[2020-02-24] MEDS ORDERED: DOXYCYCLINE HY100 MG PO (10:21)
--- NOTE | 2020-02-24 11:02 | NUR ---
Spoke with Mary with [facility], they will be able to see pt tomorrow. HH information printed and given to pt w/ instructions to call them if she does not hear from them within 24 hrs of discharge.
--- NOTE | 2020-02-24 11:28 | NUR ---
INFECTIOUS DISEASE PROGRESS NOTE DR. DEMIAN MEDINA HISTORY OF PRESENT ILLNESS: Ms. Valerie Pedersen is an 80-year-old, who has history of COPD, she was at home at 4 L of oxygen. Apparently, her son found her naked, confused. The patient was brought here. She was given IV fluid with IV antibiotic. She is currently alert and oriented. She remains forgetful, but she is alert and oriented. She is feeling better. She did have fever when she first came. Also, her lactic acid was elevated at 3.2. The patient is currently in bed, comfortable. The patient is telling me she has history of COPD, history of allergic rhinitis, and also history of diabetes. PAST MEDICAL HISTORY: Severe COPD on 4 L, obesity, and the patient seemed to be forgetful. ROS: +fatigue PERTINENT ROS NEG UNLESS OTHERWISE DOCUMENTED ALLERGIES: NKA. LABORATORY DATA: per chart PHYSICAL EXAMINATION: GENERAL: Currently alert and oriented. Does not seem to be in acute distress. VITAL SIGNS: Stable, currently afebrile. HEENT: She is not icteric. normocephalic, atraumatic NECK: Supple. no JVD CHEST: Crackles bilateral. symmetric expansion HEART: S1 and S2. no s3, s4 ABDOMEN: Soft. Bowel sounds present. EXTREMITIES: No edema. SKIN: No rash. no joint swelling NEURO: no large neuro deficits
--- NOTE | 2020-02-24 13:16 | Progress Note ---
DATE: SUBJECTIVE: Ms. Pedersen is lying in bed comfortably. There are no new complaints. The patient has history of COPD on 4 L oxygen. She is currently doing well. She is back to her baseline. PHYSICAL EXAMINATION: GENERAL: Currently alert and oriented. Does not seem to be in acute distress. VITAL SIGNS: Stable, currently afebrile. HEENT: She is not icteric. NECK: Supple. CHEST: Clear bilateral. HEART: S1 and S2. ABDOMEN: Soft. IMPRESSION: 1. Pneumonia, on admission, resolved. 2. Urinary tract infection/bacteria, stable. 3. Liver cirrhosis. 4. Right breast mass, rule out malignancy. Stable from Infectious Disease point of view. Off antibiotic. Discharge planning per others. Follow up with Internal Medicine in terms of medical problem as mentioned above. MD MARIA VICTORIA Simpson/KEIRY /[id number]
[2020-02-24 13:40] VITALS: BP 134/66
--- NOTE | 2020-02-24 15:15 | NUR ---
Pt discharged home at this time. Pt and son verbalized understanding of all discharge instructions and follow up appointments. Pt denies any pain at time of discharge. 0 s/s of acute distress at time of discharge. PICC line discontinued prior to discharge. Lumen is 36cm with tip intact, no bleeding noted at insertion site. Pressure dressing applied to site and instructed not to remove for 24hrs.
== END 2020-02-24 15:23 | disposition home health service (06) | DRG 871 ==
LOC: ER 02:27 → ERHOLD 03:56 → IMCU 10:43 → MED/SURG2 02-17 14:04
PROVIDERS: ADMIT Internal Medicine; ATTEND Internal Medicine
PROC: 02HV33Z Insertion of Infusion Device into Superior Vena Cava, Percutaneous Approach (ICD-10-PCS; principal; 2020-02-19)
PROC: B548ZZA Ultrasonography of Superior Vena Cava, Guidance (ICD-10-PCS; 2020-02-19)
PROC: 30233N1 Transfusion of Nonautologous Red Blood Cells into Peripheral Vein, Percutaneous Approach (ICD-10-PCS; 2020-02-19)
DX: A41.9 Sepsis, unspecified organism (principal); J15.9 Unspecified bacterial pneumonia; J69.0 Pneumonitis due to inhalation of food and vomit; K55.21 Angiodysplasia of colon with hemorrhage; G92 Toxic encephalopathy; N39.0 Urinary tract infection, site not specified; E87.2 Acidosis; E87.0 Hyperosmolality and hypernatremia; N17.9 Acute kidney failure, unspecified; J44.1 Chronic obstructive pulmonary disease with (acute) exacerbation; K76.6 Portal hypertension; J44.0 Chronic obstructive pulmonary disease with (acute) lower respiratory infection; G93.40 Encephalopathy, unspecified; E11.9 Type 2 diabetes mellitus without complications; E03.9 Hypothyroidism, unspecified; R65.20 Severe sepsis without septic shock; K74.60 Unspecified cirrhosis of liver; I50.9 Heart failure, unspecified; Z90.49 Acquired absence of other specified parts of digestive tract; D50.9 Iron deficiency anemia, unspecified; N63.0 Unspecified lump in unspecified breast; E66.9 Obesity, unspecified; D63.8 Anemia in other chronic diseases classified elsewhere; F41.9 Anxiety disorder, unspecified; Z68.22 Body mass index [BMI] 22.0-22.9, adult; Z99.81 Dependence on supplemental oxygen; D50.0 Iron deficiency anemia secondary to blood loss (chronic); Z79.84 Long term (current) use of oral hypoglycemic drugs
CPT/HCPCS: 36415; 36569; 71045; 71250; 74177; 80048; 80053; 81001; 82550; 82553; 82607; 82728; 82746; 82948; 83540; 83605; 83735; 83880; 84100; 84443; 84466; 84484; 85025; 86850; 86870; 86880; 86900; 86905; 86920; 86922; 87040; 87086; 87400; 93005; 93306; 94640; 97139; 99001; 99251; 99284; J0456; J1100; J1650; J1756; J1940; J2543; J7030; J7050; P9016; Q9967; U0002

== ENCOUNTER 2020-06-20 12:36 | Inpatient (IN) | payer MEDICARE ==
[~2020-06-20] VITALS: Ht 149.9 cm; Wt 71.5 kg
[~2020-06-20 12:36] MED LIST changes: +ASPIRIN81 MG PO; +DOXYCYCLINE HY100 MG PO; +FERROUS SULFAT325 MG PO; +FUROSEMIDE40 MG PO; +LASIX20 MG PO; +LORATADINE10 MG PO; +METOPROLOL TART25 MG PO; +MUCINEX600 MG PO; +OMEPRAZOLE40 MG PO; +TESSALON PERLE100 MG PO; +TRELEGY ELLIPT1 EACH INH; +TYLENOL EXTRA500 MG PO
[2020-06-20 13:43] LABS: BASOPHILS % 0.3 % (0.0-1.0); EOSINOPHILS % 0.2 % (0.0-6.0); HEMATOCRIT 33.7 % (34.2-44.1); HEMOGLOBIN 9.9 g/dL (12.0-16.0); LYMPHOCYTES # (AUTO) 0.8 (1.0-3.2); LYMPHOCYTES % 9.4 % (18.0-39.1); MEAN CORPUSCULAR HEMOGLOBIN 26.8 pg (28-32); MEAN CORPUSCULAR HGB CONC 29.4 g/dL (31-35); MEAN CORPUSCULAR VOLUME 91.3 fL (81-99); MONOCYTES # (AUTO) 0.6 (0.2-0.8); MONOCYTES % 6.5 % (4.4-11.3); NEUTROPHILS # (AUTO) 7.2 (2.1-6.9); PLATELET COUNT 168 x10e3/uL (140-360); RED BLOOD COUNT 3.69 x10e6/uL (3.6-5.1); RED CELL DISTRIBUTION WIDTH 14.6 % (11.7-14.4)
[2020-06-20 13:51] LABS: INR 0.94; PROTHROMBIN TIME 13.1 seconds (11.9-14.5)
[2020-06-20 14:00] LABS: ALBUMIN 3.1 g/dL (3.5-5.0); ALBUMIN/GLOBULIN RATIO 0.7 (0.8-2.0); ANION GAP 16.4 mmol/L (8-16); CALCIUM 8.8 mg/dL (8.4-10.2); CREATININE, SERUM 1.5 mg/dL (0.57-1.11); POTASSIUM 4.4 mmol/L (3.5-5.1)
[2020-06-20] MEDS ORDERED: CEFEPIME HCL 1GM 1 GM in SODIUM CHLORIDE 0.9% 50ML 50 ML IV ONE (14:30)
[2020-06-20] MEDS ORDERED: PANTOPRAZOLE 40 MG 10ML VIAL IV ONE (14:45)
[2020-06-20] MEDS ORDERED: PANTOPRAZOLE INJ 40 MG in SODIUM CHLORIDE 0.9% 50ML 50 ML IV SCH (15:00)
[2020-06-20 15:08] LABS: CLARITY,URINE SL CLOUDY (CLEAR); COLOR,URINE YELLOW (YELLOW)
[2020-06-20 15:09] LABS: KETONES,URINE NEGATIVE (NEGATIVE); LEUKOCYTE ESTERASE ,URINE NEGATIVE (NEGATIVE); NITRITE,URINE NEGATIVE (NEGATIVE); PROTEIN,URINE DIPSTICK NEGATIVE (NEGATIVE); URINE UROBILINOGEN 0.2 mg/dL (0.2 - 1)
[2020-06-20 15:20] LABS: BACTERIA,URINE FEW /HPF; EPITHELIAL CELLS,URINE FEW /LPF; RBC,URINE 0-5 /HPF (0-5)
[2020-06-20 18:23] LABS: HEMATOCRIT 30.9 % (34.2-44.1)
[2020-06-20 20:35] VITALS: BP 118/67
[2020-06-20] MEDS ORDERED: CEFTRIAXONE SOD 1 GM/50 ML BAG IV SCH (21:00)
[2020-06-20] MEDS ORDERED: IPRATROPIUM/ALBUTEROL SULFATE 4 GM INH INH PRN (21:00)
[2020-06-20] MEDS ORDERED: ACETAMINOPHEN 325 MG TAB PO PRN (21:00)
[2020-06-20] MEDS ORDERED: ONDANSETRON HCL INJ 2MG/ML 2ML 2 MG/ML VIAL IV PRN (21:00)
[2020-06-20 21:31] VITALS: BP 118/67
[2020-06-20] MEDS ORDERED: SODIUM CHLORIDE 0.9% 250ML 250 ML ONE (21:58)
[2020-06-20] MEDS: GABAPENTIN 300 MG CAP PO SCH (22:23)
[2020-06-20] MEDS: METOPROLOL TARTRATE 25 MG TAB PO SCH (22:23)
[2020-06-20] MEDS: PANTOPRAZOLE 40 MG 10ML VIAL INJ SCH (22:23)
[2020-06-20] MEDS: LORATADINE 10 MG TAB PO SCH (22:23)
[2020-06-20] MEDS: AZITHROMYCIN 500MG/NS 250 ML 250 ML IV SCH (22:24)
[2020-06-20] MEDS: SIMVASTATIN 20 MG TAB PO SCH (22:24)
[2020-06-20] MEDS: DEXAMETHASONE SOD PHOS INJ 4 MG/ML VIAL IV SCH (22:30)
[2020-06-20] MEDS: BENZONATATE 100 MG CAP PO PRN (22:30)
[2020-06-20] MEDS: CEFTRIAXONE SOD 1 GM in SODIUM CHLORIDE 0.9% 50ML 50 ML IV SCH (22:30)
[2020-06-20] MEDS ORDERED: BISACODYL 5 MG TAB EC PO ONE (23:45)
[2020-06-20 23:55] VITALS: BP 102/56
[2020-06-21] VITALS (8 sets, daily range): BP systolic 103–125; BP diastolic 58–77
[2020-06-21] MEDS ORDERED: BISACODYL 5 MG TAB EC PO ONE ×2 (00:15→23:45)
[2020-06-21 04:52] LABS: BASOPHILS % 0.2 % (0.0-1.0); HEMATOCRIT 29.2 % (34.2-44.1); HEMOGLOBIN 8.6 g/dL (12.0-16.0); LYMPHOCYTES # (AUTO) 0.5 (1.0-3.2); LYMPHOCYTES % 12.5 % (18.0-39.1); MEAN CORPUSCULAR HEMOGLOBIN 27.2 pg (28-32); MEAN CORPUSCULAR HGB CONC 29.5 g/dL (31-35); MEAN CORPUSCULAR VOLUME 92.4 fL (81-99); MONOCYTES # (AUTO) 0.1 (0.2-0.8); MONOCYTES % 2.8 % (4.4-11.3); NEUTROPHILS # (AUTO) 3.5 (2.1-6.9); NEUTROPHILS % 83.6 % (38.7-80.0); PLATELET COUNT 143 x10e3/uL (140-360); RED BLOOD COUNT 3.16 x10e6/uL (3.6-5.1); RED CELL DISTRIBUTION WIDTH 14.1 % (11.7-14.4)
[2020-06-21] MEDS ORDERED: CITRATE OF MAGNESIA 300ML BOTTLE PO ONE ×2 (05:00→07:00)
[2020-06-21 05:15] LABS: ANION GAP 14.7 mmol/L (8-16); CALCIUM 8.2 mg/dL (8.4-10.2); CREATININE, SERUM 1.2 mg/dL (0.57-1.11); POTASSIUM 4.7 mmol/L (3.5-5.1)
[2020-06-21] MEDS: LEVOTHYROXINE SODIUM 75 MCG TAB PO SCH (05:50)
[2020-06-21 06:45] LABS: THYROID STIMULATING HORMONE 0.53 uIU/mL (0.350-4.940)
[2020-06-21] MEDS: METOPROLOL TARTRATE 25 MG TAB PO SCH ×2 (08:26→21:00)
[2020-06-21 08:29] LABS: BAND NEUTROPHILS % (MANUAL) 1 %; LYMPHOCYTES % (MANUAL) 14 % (19-48); MONOCYTES % (MANUAL) 3 % (3.4-9.0); NEUTROPHILS % (MANUAL) 80 % (40-74); RBC MORPHOLOGY COMMENT NORMAL
[2020-06-21 08:30] LABS: PLATELET ESTIMATE ADEQUATE; PLATELET MORPHOLOGY COMMENT NORMAL
[2020-06-21] MEDS ORDERED: GUAIFENESIN 600 MG TAB PO PRN (08:30)
[2020-06-21] MEDS: ASCORBIC ACID 500 MG TAB PO SCH ×2 (09:13→17:28)
[2020-06-21] MEDS: DEXAMETHASONE SOD PHOS INJ 4 MG/ML VIAL IV SCH (09:13)
[2020-06-21] MEDS: LORATADINE 10 MG TAB PO SCH ×2 (09:13→21:00)
[2020-06-21] MEDS: GABAPENTIN 300 MG CAP PO SCH ×2 (09:13→21:00)
[2020-06-21] MEDS: CHOLECALCIFEROL 1,000 UNIT TAB PO SCH (09:13)
[2020-06-21] MEDS: ZINC SULFATE 220 MG CAP PO SCH (09:13)
[2020-06-21] MEDS: PANTOPRAZOLE 40 MG 10ML VIAL INJ SCH ×2 (09:13→21:00)
[2020-06-21] MEDS: GUAIFENESIN 600 MG TAB PO PRN (09:19)
[2020-06-21] MEDS: IRON SUCROSE 100 MG in SODIUM CHLORIDE 0.9% 100 ML 100 ML IV SCH (11:06)
[2020-06-21] MEDS ORDERED: MIDAZOLAM HCL 2 MG/2 ML VIAL ONE (12:54)
[2020-06-21] MEDS ORDERED: KETAMINE HCL INJ 50 MG/ML 10 ML VIAL ONE (12:54)
[2020-06-21] MEDS ORDERED: DEXTROSE 50% SYRINGE 50 ML IV PRN (14:00)
[2020-06-21] MEDS ORDERED: REMDESIVIR 200MG/NS 100ML 200 MG in SODIUM CHLORIDE 0.9% 100 ML 100 ML IV ONE (15:00)
[2020-06-21] MEDS: INSULIN LISPRO 100 UNIT/1 ML 3ML VIAL SQ SCH ×2 (17:27→21:00)
[2020-06-21] MEDS: SIMVASTATIN 20 MG TAB PO SCH (21:00)
[2020-06-21] MEDS: AZITHROMYCIN 500MG/NS 250 ML 250 ML IV SCH (21:00)
[2020-06-21] MEDS: CEFTRIAXONE SOD 1 GM in SODIUM CHLORIDE 0.9% 50ML 50 ML IV SCH (22:00)
[2020-06-22] VITALS (7 sets, daily range): BP systolic 118–152; BP diastolic 57–95
[2020-06-22] MEDS ORDERED: BISACODYL 5 MG TAB EC PO ONE (00:15)
[2020-06-22 04:45] LABS: BASOPHILS % 0.2 % (0.0-1.0); HEMATOCRIT 30.1 % (34.2-44.1); HEMOGLOBIN 8.9 g/dL (12.0-16.0); LYMPHOCYTES # (AUTO) 0.6 (1.0-3.2); LYMPHOCYTES % 11.4 % (18.0-39.1); MEAN CORPUSCULAR HEMOGLOBIN 26.7 pg (28-32); MEAN CORPUSCULAR HGB CONC 29.6 g/dL (31-35); MEAN CORPUSCULAR VOLUME 90.4 fL (81-99); MONOCYTES # (AUTO) 0.4 (0.2-0.8); MONOCYTES % 6.8 % (4.4-11.3); NEUTROPHILS # (AUTO) 4.4 (2.1-6.9); PLATELET COUNT 181 x10e3/uL (140-360); RED BLOOD COUNT 3.33 x10e6/uL (3.6-5.1); RED CELL DISTRIBUTION WIDTH 13.9 % (11.7-14.4)
[2020-06-22] MEDS ORDERED: CITRATE OF MAGNESIA 300ML BOTTLE PO ONE ×2 (05:00→07:00)
[2020-06-22 05:15] LABS: ANION GAP 14.4 mmol/L (8-16); CALCIUM 8.7 mg/dL (8.4-10.2); CREATININE, SERUM 1.02 mg/dL (0.57-1.11); POTASSIUM 4.4 mmol/L (3.5-5.1)
[2020-06-22] MEDS: LEVOTHYROXINE SODIUM 75 MCG TAB PO SCH (05:45)
[2020-06-22] MEDS: INSULIN LISPRO 100 UNIT/1 ML 3ML VIAL SQ SCH ×4 (07:30→20:16)
[2020-06-22] MEDS: LORATADINE 10 MG TAB PO SCH ×2 (08:00→19:51)
[2020-06-22] MEDS: ZINC SULFATE 220 MG CAP PO SCH (08:00)
[2020-06-22] MEDS: CHOLECALCIFEROL 1,000 UNIT TAB PO SCH (08:00)
[2020-06-22] MEDS: METOPROLOL TARTRATE 25 MG TAB PO SCH ×2 (08:00→20:07)
[2020-06-22] MEDS: DEXAMETHASONE SOD PHOS INJ 4 MG/ML VIAL IV SCH (08:00)
[2020-06-22] MEDS: PANTOPRAZOLE 40 MG 10ML VIAL INJ SCH ×2 (08:00→19:51)
[2020-06-22] MEDS: GABAPENTIN 300 MG CAP PO SCH ×2 (08:00→19:51)
[2020-06-22] MEDS: IRON SUCROSE 100 MG in SODIUM CHLORIDE 0.9% 100 ML 100 ML IV SCH (08:00)
[2020-06-22] MEDS: ASCORBIC ACID 500 MG TAB PO SCH ×2 (08:00→16:23)
[2020-06-22] MEDS ORDERED: PROPOFOL IV EMULSION 10 MG/ML 20 ML VIAL ONE ×2 (12:39)
[2020-06-22] MEDS: REMDESIVIR 100MG/NS 100ML 100 MG in SODIUM CHLORIDE 0.9% 100 ML 100 ML IV SCH (14:24)
[2020-06-22] MEDS ORDERED: HYOSCYAMINE SULFATE 0.5 MG/ML INJ ONE (15:26)
[2020-06-22] MEDS: SIMVASTATIN 20 MG TAB PO SCH (19:51)
[2020-06-22] MEDS: AZITHROMYCIN 500MG/NS 250 ML 250 ML IV SCH (19:51)
[2020-06-22] MEDS: GUAIFENESIN 600 MG TAB PO PRN (20:31)
[2020-06-22] MEDS: BENZONATATE 100 MG CAP PO PRN (20:31)
[2020-06-22] MEDS: CEFTRIAXONE SOD 1 GM in SODIUM CHLORIDE 0.9% 50ML 50 ML IV SCH (22:47)
[2020-06-23] VITALS (9 sets, daily range): BP systolic 103–127; BP diastolic 62–90
[2020-06-23 05:02] LABS: BASOPHILS % 0.1 % (0.0-1.0); HEMATOCRIT 29.7 % (34.2-44.1); HEMOGLOBIN 8.7 g/dL (12.0-16.0); LYMPHOCYTES # (AUTO) 0.8 (1.0-3.2); LYMPHOCYTES % 10.2 % (18.0-39.1); MEAN CORPUSCULAR HEMOGLOBIN 26.9 pg (28-32); MEAN CORPUSCULAR HGB CONC 29.3 g/dL (31-35); MONOCYTES # (AUTO) 0.5 (0.2-0.8); MONOCYTES % 6.8 % (4.4-11.3); NEUTROPHILS # (AUTO) 6.1 (2.1-6.9); NEUTROPHILS % 79.8 % (38.7-80.0); PLATELET COUNT 227 x10e3/uL (140-360); RED BLOOD COUNT 3.23 x10e6/uL (3.6-5.1)
[2020-06-23 05:27] LABS: ALBUMIN 2.8 g/dL (3.5-5.0); ALBUMIN/GLOBULIN RATIO 0.8 (0.8-2.0); ANION GAP 13.4 mmol/L (8-16); CALCIUM 8.5 mg/dL (8.4-10.2); CREATININE, SERUM 1.11 mg/dL (0.57-1.11); POTASSIUM 4.4 mmol/L (3.5-5.1)
[2020-06-23] MEDS: LEVOTHYROXINE SODIUM 75 MCG TAB PO SCH (05:48)
[2020-06-23 06:29] LABS: HYPOCHROMASIA SLIGHT
[2020-06-23 06:31] LABS: OVALOCYTES FEW; PLATELET ESTIMATE ADEQUATE; PLATELET MORPHOLOGY COMMENT NORMAL; RBC MORPHOLOGY COMMENT NORMAL
[2020-06-23] MEDS: INSULIN LISPRO 100 UNIT/1 ML 3ML VIAL SQ SCH ×4 (07:30→21:00)
[2020-06-23] MEDS: PANTOPRAZOLE 40 MG 10ML VIAL INJ SCH ×2 (07:48→21:22)
[2020-06-23] MEDS: DEXAMETHASONE SOD PHOS INJ 4 MG/ML VIAL IV SCH (07:48)
[2020-06-23] MEDS: ZINC SULFATE 220 MG CAP PO SCH (07:49)
[2020-06-23] MEDS: CHOLECALCIFEROL 1,000 UNIT TAB PO SCH (07:49)
[2020-06-23] MEDS: LORATADINE 10 MG TAB PO SCH ×2 (07:49→21:22)
[2020-06-23] MEDS: ASCORBIC ACID 500 MG TAB PO SCH ×2 (07:49→16:28)
[2020-06-23] MEDS: GABAPENTIN 300 MG CAP PO SCH ×2 (07:49→21:22)
[2020-06-23] MEDS: METOPROLOL TARTRATE 25 MG TAB PO SCH ×2 (07:50→21:22)
[2020-06-23] MEDS: IRON SUCROSE 100 MG in SODIUM CHLORIDE 0.9% 100 ML 100 ML IV SCH (08:04)
[2020-06-23] MEDS: REMDESIVIR 100MG/NS 100ML 100 MG in SODIUM CHLORIDE 0.9% 100 ML 100 ML IV SCH (13:02)
[2020-06-23] MEDS: GUAIFENESIN 600 MG TAB PO PRN (15:18)
[2020-06-23] MEDS: SIMVASTATIN 20 MG TAB PO SCH (21:22)
[2020-06-23] MEDS: CEFTRIAXONE SOD 1 GM in SODIUM CHLORIDE 0.9% 50ML 50 ML IV SCH (21:22)
[2020-06-23] MEDS: AZITHROMYCIN 500MG/NS 250 ML 250 ML IV SCH (21:22)
[2020-06-24] VITALS (7 sets, daily range): BP systolic 112–129; BP diastolic 51–87
[2020-06-24] MEDS: LEVOTHYROXINE SODIUM 75 MCG TAB PO SCH (05:53)
[2020-06-24] MEDS: INSULIN LISPRO 100 UNIT/1 ML 3ML VIAL SQ SCH ×4 (07:30→21:00)
[2020-06-24] MEDS: ASCORBIC ACID 500 MG TAB PO SCH ×2 (08:38→17:17)
[2020-06-24] MEDS: GABAPENTIN 300 MG CAP PO SCH ×2 (08:38→21:00)
[2020-06-24] MEDS: ZINC SULFATE 220 MG CAP PO SCH (08:38)
[2020-06-24] MEDS: CHOLECALCIFEROL 1,000 UNIT TAB PO SCH (08:38)
[2020-06-24] MEDS: LORATADINE 10 MG TAB PO SCH ×2 (08:38→21:00)
[2020-06-24] MEDS: METOPROLOL TARTRATE 25 MG TAB PO SCH ×2 (08:38→21:00)
[2020-06-24] MEDS: DEXAMETHASONE SOD PHOS INJ 4 MG/ML VIAL IV SCH (08:38)
[2020-06-24] MEDS: PANTOPRAZOLE 40 MG 10ML VIAL INJ SCH (08:38)
[2020-06-24] MEDS ORDERED: OMEPRAZOLE 20 MG CAP PO SCH (09:00)
[2020-06-24] MEDS: GUAIFENESIN 600 MG TAB PO PRN (09:40)
[2020-06-24] MEDS ORDERED: ALBUTEROL SULFATE HFA 8GM INHALATION AEROSOL INH PRN (12:15)
[2020-06-24] MEDS: ALBUTEROL SULFATE HFA 8GM INHALATION AEROSOL INH SCH ×2 (13:00→19:45)
[2020-06-24] MEDS ORDERED: ENOXAPARIN SOD INJ 40 MG/0.4 ML SYR SC STA (13:16)
[2020-06-24] MEDS: REMDESIVIR 100MG/NS 100ML 100 MG in SODIUM CHLORIDE 0.9% 100 ML 100 ML IV SCH (13:35)
[2020-06-24] MEDS ORDERED: CEFTRIAXONE SOD 1 GM VIAL ONE (20:19)
[2020-06-24] MEDS: SIMVASTATIN 20 MG TAB PO SCH (21:00)
[2020-06-24] MEDS: CEFTRIAXONE SOD 1 GM in SODIUM CHLORIDE 0.9% 50ML 50 ML IV SCH (21:20)
[2020-06-25] VITALS (8 sets, daily range): BP systolic 109–138; BP diastolic 56–96
[2020-06-25] MEDS: ALBUTEROL SULFATE HFA 8GM INHALATION AEROSOL INH SCH (00:55)
[2020-06-25] MEDS: LEVOTHYROXINE SODIUM 75 MCG TAB PO SCH (05:30)
[2020-06-25 06:59] LABS: BASOPHILS % 0.2 % (0.0-1.0); HEMATOCRIT 32.1 % (34.2-44.1); HEMOGLOBIN 9.2 g/dL (12.0-16.0); LYMPHOCYTES # (AUTO) 0.8 (1.0-3.2); LYMPHOCYTES % 12.4 % (18.0-39.1); MEAN CORPUSCULAR HEMOGLOBIN 26.5 pg (28-32); MEAN CORPUSCULAR HGB CONC 28.7 g/dL (31-35); MEAN CORPUSCULAR VOLUME 92.5 fL (81-99); MONOCYTES # (AUTO) 0.6 (0.2-0.8); MONOCYTES % 9.3 % (4.4-11.3); NEUTROPHILS # (AUTO) 4.4 (2.1-6.9); NEUTROPHILS % 71.7 % (38.7-80.0); PLATELET COUNT 192 x10e3/uL (140-360); RED BLOOD COUNT 3.47 x10e6/uL (3.6-5.1); RED CELL DISTRIBUTION WIDTH 14.2 % (11.7-14.4)
[2020-06-25 07:26] LABS: ANION GAP 13.3 mmol/L (8-16); CALCIUM 8.5 mg/dL (8.4-10.2); CREATININE, SERUM 0.91 mg/dL (0.57-1.11); POTASSIUM 5.3 mmol/L (3.5-5.1)
[2020-06-25] MEDS: INSULIN LISPRO 100 UNIT/1 ML 3ML VIAL SQ SCH ×4 (07:30→19:51)
[2020-06-25 07:39] LABS: MAGNESIUM 2.1 MG/DL (1.3-2.1); PHOSPHORUS 3.2 MG/DL (2.3-4.7)
[2020-06-25] MEDS: OMEPRAZOLE 20 MG CAP PO SCH (08:10)
[2020-06-25] MEDS: LORATADINE 10 MG TAB PO SCH ×2 (08:11→20:45)
[2020-06-25] MEDS: DEXAMETHASONE SOD PHOS INJ 4 MG/ML VIAL IV SCH (08:11)
[2020-06-25] MEDS: ASCORBIC ACID 500 MG TAB PO SCH ×2 (08:11→16:50)
[2020-06-25] MEDS: METOPROLOL TARTRATE 25 MG TAB PO SCH ×2 (08:11→20:45)
[2020-06-25] MEDS: GABAPENTIN 300 MG CAP PO SCH ×2 (08:11→20:45)
[2020-06-25] MEDS: CHOLECALCIFEROL 1,000 UNIT TAB PO SCH (08:12)
[2020-06-25] MEDS: ZINC SULFATE 220 MG CAP PO SCH (08:12)
[2020-06-25] MEDS ORDERED: ENOXAPARIN SOD INJ 40 MG/0.4 ML SYR SC SCH (09:00)
[2020-06-25] MEDS ORDERED: ENOXAPARIN SODIUM INJ 100 MG/ML SYR SC SCH (09:00)
[2020-06-25] MEDS: IRON SUCROSE 100 MG in SODIUM CHLORIDE 0.9% 100 ML 100 ML IV SCH (10:09)
[2020-06-25] MEDS ORDERED: SODIUM CHLORIDE 0.9% 250ML 250 ML ONE (10:27)
[2020-06-25 11:57] LABS: BAND NEUTROPHILS % (MANUAL) 3 %; LYMPHOCYTES % (MANUAL) 17 % (19-48); MONOCYTES % (MANUAL) 4 % (3.4-9.0); NEUTROPHILS % (MANUAL) 73 % (40-74); PROMYELOCYTES % (MANUAL) 3 % (0-0)
[2020-06-25 11:58] LABS: PLATELET ESTIMATE ADEQUATE; PLATELET MORPHOLOGY COMMENT NORMAL; RBC MORPHOLOGY COMMENT NORMAL
[2020-06-25] MEDS: REMDESIVIR 100MG/NS 100ML 100 MG in SODIUM CHLORIDE 0.9% 100 ML 100 ML IV SCH (14:30)
[2020-06-25] MEDS ORDERED: SOD POLYSTYRENE SULFONATE SUSP 15 GM/60 ML BTL PO ONE (16:45)
[2020-06-25] MEDS: CYANOCOBALAMIN INJ 1,000 MCG/ML VIAL IM SCH (16:50)
[2020-06-25] MEDS ORDERED: CEFTRIAXONE SOD 1 GM VIAL ONE (19:28)
[2020-06-25] MEDS: SIMVASTATIN 20 MG TAB PO SCH (20:45)
[2020-06-25] MEDS: CEFTRIAXONE SOD 1 GM in SODIUM CHLORIDE 0.9% 50ML 50 ML IV SCH (21:21)
[2020-06-25] MEDS ORDERED: MAGNESIUM HYDROXIDE 30 ML UDC PO ONE (23:30)
[2020-06-26] VITALS (8 sets, daily range): BP systolic 106–139; BP diastolic 59–94
[2020-06-26] MEDS: LEVOTHYROXINE SODIUM 75 MCG TAB PO SCH (05:49)
[2020-06-26 07:00] LABS: BASOPHILS % 0.2 % (0.0-1.0); EOSINOPHILS % 0.2 % (0.0-6.0); HEMATOCRIT 30.2 % (34.2-44.1); HEMOGLOBIN 8.9 g/dL (12.0-16.0); LYMPHOCYTES # (AUTO) 0.7 (1.0-3.2); LYMPHOCYTES % 10.8 % (18.0-39.1); MEAN CORPUSCULAR HEMOGLOBIN 26.8 pg (28-32); MEAN CORPUSCULAR HGB CONC 29.5 g/dL (31-35); MONOCYTES # (AUTO) 0.6 (0.2-0.8); MONOCYTES % 9.1 % (4.4-11.3); NEUTROPHILS # (AUTO) 4.7 (2.1-6.9); NEUTROPHILS % 73.6 % (38.7-80.0); PLATELET COUNT 177 x10e3/uL (140-360); RED BLOOD COUNT 3.32 x10e6/uL (3.6-5.1); RED CELL DISTRIBUTION WIDTH 14.2 % (11.7-14.4)
[2020-06-26] MEDS: ALBUTEROL SULFATE HFA 8GM INHALATION AEROSOL INH SCH ×3 (07:00→21:06)
[2020-06-26 07:17] LABS: ANION GAP 13.3 mmol/L (8-16); BLOOD UREA NITROGEN 27 mg/dL (7-26); BUN/CREATININE RATIO 32 (6-25); CARBON DIOXIDE 27 mmol/L (22-29); CHLORIDE 111 mmol/L (98-107); CREATININE, SERUM 0.85 mg/dL (0.57-1.11); EST GLOMERULAR FILTRATION RATE > 60 ML/MIN (60-); GLUCOSE 119 mg/dL (74-118); POTASSIUM 4.3 mmol/L (3.5-5.1); SODIUM 147 mmol/L (136-145)
[2020-06-26] MEDS: INSULIN LISPRO 100 UNIT/1 ML 3ML VIAL SQ SCH ×4 (07:30→21:00)
[2020-06-26] MEDS: CYANOCOBALAMIN INJ 1,000 MCG/ML VIAL IM SCH (08:45)
[2020-06-26] MEDS: OMEPRAZOLE 20 MG CAP PO SCH (08:45)
[2020-06-26] MEDS: LORATADINE 10 MG TAB PO SCH ×2 (08:48→21:00)
[2020-06-26] MEDS: METOPROLOL TARTRATE 25 MG TAB PO SCH ×2 (08:48→21:00)
[2020-06-26] MEDS: DEXAMETHASONE SOD PHOS INJ 4 MG/ML VIAL IV SCH (08:48)
[2020-06-26] MEDS: GABAPENTIN 300 MG CAP PO SCH ×2 (08:49→21:00)
[2020-06-26] MEDS: ZINC SULFATE 220 MG CAP PO SCH (08:49)
[2020-06-26] MEDS: CHOLECALCIFEROL 1,000 UNIT TAB PO SCH (08:49)
[2020-06-26] MEDS: ASCORBIC ACID 500 MG TAB PO SCH ×2 (08:49→17:11)
[2020-06-26] MEDS: IRON SUCROSE 100 MG in SODIUM CHLORIDE 0.9% 100 ML 100 ML IV SCH (11:30)
[2020-06-26] MEDS ORDERED: SODIUM CHLORIDE 0.9% 50ML 50 ML ONE (20:00)
[2020-06-26] MEDS ORDERED: CEFTRIAXONE SOD 1 GM VIAL ONE (20:00)
[2020-06-26] MEDS: SIMVASTATIN 20 MG TAB PO SCH (21:00)
[2020-06-26] MEDS: CEFTRIAXONE SOD 1 GM in SODIUM CHLORIDE 0.9% 50ML 50 ML IV SCH (21:21)
[2020-06-27] VITALS (8 sets, daily range): BP systolic 100–143; BP diastolic 60–83
[2020-06-27] MEDS: LEVOTHYROXINE SODIUM 75 MCG TAB PO SCH (05:33)
[2020-06-27 06:31] LABS: HEMATOCRIT 31.3 % (34.2-44.1); HEMOGLOBIN 9.3 g/dL (12.0-16.0); LYMPHOCYTES # (AUTO) 0.6 (1.0-3.2); LYMPHOCYTES % 8.8 % (18.0-39.1); MEAN CORPUSCULAR HEMOGLOBIN 27.7 pg (28-32); MEAN CORPUSCULAR HGB CONC 29.7 g/dL (31-35); MEAN CORPUSCULAR VOLUME 93.2 fL (81-99); MONOCYTES # (AUTO) 0.5 (0.2-0.8); MONOCYTES % 7.1 % (4.4-11.3); NEUTROPHILS % 78.4 % (38.7-80.0); PLATELET COUNT 172 x10e3/uL (140-360); RED BLOOD COUNT 3.36 x10e6/uL (3.6-5.1); RED CELL DISTRIBUTION WIDTH 14.8 % (11.7-14.4)
[2020-06-27 06:41] LABS: BLOOD UREA NITROGEN 25 mg/dL (7-26); BUN/CREATININE RATIO 32 (6-25); CALCIUM 8.5 mg/dL (8.4-10.2); CARBON DIOXIDE 29 mmol/L (22-29); CHLORIDE 114 mmol/L (98-107); CREATININE, SERUM 0.77 mg/dL (0.57-1.11); EST GLOMERULAR FILTRATION RATE > 60 ML/MIN (60-); GLUCOSE 133 mg/dL (74-118); SODIUM 148 mmol/L (136-145)
[2020-06-27] MEDS: ALBUTEROL SULFATE HFA 8GM INHALATION AEROSOL INH SCH ×3 (07:00→21:54)
[2020-06-27] MEDS: INSULIN LISPRO 100 UNIT/1 ML 3ML VIAL SQ SCH ×4 (07:30→20:05)
[2020-06-27] MEDS: OMEPRAZOLE 20 MG CAP PO SCH (08:05)
[2020-06-27] MEDS: CHOLECALCIFEROL 1,000 UNIT TAB PO SCH (09:27)
[2020-06-27] MEDS: ZINC SULFATE 220 MG CAP PO SCH (09:27)
[2020-06-27] MEDS: DEXAMETHASONE SOD PHOS INJ 4 MG/ML VIAL IV SCH (09:27)
[2020-06-27] MEDS: GABAPENTIN 300 MG CAP PO SCH ×2 (09:27→20:10)
[2020-06-27] MEDS: METOPROLOL TARTRATE 25 MG TAB PO SCH ×2 (09:27→20:10)
[2020-06-27] MEDS: CYANOCOBALAMIN INJ 1,000 MCG/ML VIAL IM SCH (09:27)
[2020-06-27] MEDS: LORATADINE 10 MG TAB PO SCH ×2 (09:27→20:10)
[2020-06-27] MEDS: ASCORBIC ACID 500 MG TAB PO SCH ×2 (09:27→17:19)
[2020-06-27] MEDS: IRON SUCROSE 100 MG in SODIUM CHLORIDE 0.9% 100 ML 100 ML IV SCH (10:27)
[2020-06-27 11:42] LABS: LYMPHOCYTES % (MANUAL) 10 % (19-48); MONOCYTES % (MANUAL) 4 % (3.4-9.0); MYELOCYTES % (MANUAL) 2 % (0-0); NEUTROPHILS % (MANUAL) 84 % (40-74); PLATELET ESTIMATE ADEQUATE
[2020-06-27 11:43] LABS: ANISOCYTOSIS SLIGHT; HYPOCHROMASIA SLIGHT; PLATELET MORPHOLOGY COMMENT NORMAL; POLYCHROMASIA FEW; RBC MORPHOLOGY COMMENT ABNORMAL
[2020-06-27] MEDS: SIMVASTATIN 20 MG TAB PO SCH (20:10)
[2020-06-27] MEDS: CEFTRIAXONE SOD 1 GM in SODIUM CHLORIDE 0.9% 50ML 50 ML IV SCH (22:15)
[2020-06-28] VITALS: BP 133/74
[2020-06-28] MEDS: ALBUTEROL SULFATE HFA 8GM INHALATION AEROSOL INH SCH ×3 (01:00→13:28)
[2020-06-28 04:00] VITALS: BP 113/82
[2020-06-28] MEDS: OMEPRAZOLE 20 MG CAP PO SCH (06:16)
[2020-06-28] MEDS: LEVOTHYROXINE SODIUM 75 MCG TAB PO SCH (06:16)
[2020-06-28] MEDS: INSULIN LISPRO 100 UNIT/1 ML 3ML VIAL SQ SCH ×2 (07:30→12:32)
[2020-06-28 08:07] VITALS: BP 142/70
[2020-06-28 08:13] VITALS: BP 142/70
[2020-06-28] MEDS: GABAPENTIN 300 MG CAP PO SCH (09:05)
[2020-06-28] MEDS: ASCORBIC ACID 500 MG TAB PO SCH (09:05)
[2020-06-28] MEDS: DEXAMETHASONE SOD PHOS INJ 4 MG/ML VIAL IV SCH (09:05)
[2020-06-28] MEDS: ZINC SULFATE 220 MG CAP PO SCH (09:05)
[2020-06-28] MEDS: METOPROLOL TARTRATE 25 MG TAB PO SCH (09:05)
[2020-06-28] MEDS: CYANOCOBALAMIN INJ 1,000 MCG/ML VIAL IM SCH (09:05)
[2020-06-28] MEDS: CHOLECALCIFEROL 1,000 UNIT TAB PO SCH (09:05)
[2020-06-28] MEDS: LORATADINE 10 MG TAB PO SCH (09:05)
[2020-06-28] MEDS: IRON SUCROSE 100 MG in SODIUM CHLORIDE 0.9% 100 ML 100 ML IV SCH (10:39)
[2020-06-28 12:14] VITALS: BP 125/55
[2020-06-28] MEDS ORDERED: ONDANSETRON HCL 4 MG ORAL DISINTEGRATING TAB PO PRN (13:00)
[2020-06-28 16:20] VITALS: BP 120/75
[2020-06-28] MEDS ORDERED: PANTOPRAZOLE SO40 MG PO (16:39)
== END 2020-06-28 17:40 | disposition home or self-care (01) | DRG 177 ==
LOC: ER 13:17 → ERHOLD 14:13 → IMCU 20:26 → MED/SURG3 06-24 13:00
PROVIDERS: ADMIT Internal Medicine; ATTEND Internal Medicine
PROC: 0DJD8ZZ Inspection of Lower Intestinal Tract, Via Natural or Artificial Opening Endoscopic (ICD-10-PCS; 2020-06-21)
PROC: XW043E5 Introduction of Remdesivir Anti-infective into Central Vein, Percutaneous Approach, New Technology Group 5 (ICD-10-PCS; 2020-06-21)
PROC: 05HY33Z Insertion of Infusion Device into Upper Vein, Percutaneous Approach (ICD-10-PCS; 2020-06-21)
PROC: 8E0ZXY6 Isolation (ICD-10-PCS; principal; 2020-06-21 15:00)
PROC: 0DB78ZX Excision of Stomach, Pylorus, Via Natural or Artificial Opening Endoscopic, Diagnostic (ICD-10-PCS; 2020-06-22)
DX: U07.1 COVID-19 (principal); J12.82 Pneumonia due to coronavirus disease 2019; K55.21 Angiodysplasia of colon with hemorrhage; J96.90 Respiratory failure, unspecified, unspecified whether with hypoxia or hypercapnia; D62 Acute posthemorrhagic anemia; N17.9 Acute kidney failure, unspecified; E11.9 Type 2 diabetes mellitus without complications; I10 Essential (primary) hypertension; Z86.718 Personal history of other venous thrombosis and embolism; Z79.01 Long term (current) use of anticoagulants; Z86.711 Personal history of pulmonary embolism; M10.9 Gout, unspecified; E83.42 Hypomagnesemia; J44.9 Chronic obstructive pulmonary disease, unspecified; E03.9 Hypothyroidism, unspecified; I48.0 Paroxysmal atrial fibrillation; K29.70 Gastritis, unspecified, without bleeding; K74.60 Unspecified cirrhosis of liver
CPT/HCPCS: 36415; 43239; 45378; 71045; 71250; 80048; 80053; 81001; 82550; 82553; 82607; 82746; 82948; 83540; 83605; 83735; 84100; 84443; 84466; 84484; 85014; 85018; 85025; 85045; 85610; 87040; 87071; 87205; 88305; 88312; 93005; 96360; 96372; 97139; 99284; J0456; J0692; J0696; J1100; J1650; J1756; J1980; J2250; J3420; J7050; U0002